=== PATIENT | female | born 1950 | race Caucasian/White ===

== ENCOUNTER 2017-02-07 17:12 | Emergency (ER) | payer MEDICARE, OTHER ==
[2017-02-07 18:25] LABS: ABSOLUTE EOSINOPHILS # (AUTO) 0.3 10^3/uL (0.0-0.6); ABSOLUTE LYMPHOCYTES (AUTO) 2.1 10^3/uL (0.5-4.7); ABSOLUTE MONOCYTES (AUTO) 0.7 10^3/uL (0.1-1.4); ABSOLUTE NEUT (AUTO) 5.4 10^3/uL (1.7-8.2); BASOPHILS % (AUTO) 0.6 % (0-2); EOSINOPHILS % (AUTO) 3.6 % (0-6); HEMATOCRIT 36.4 % (36.0-47.0); HEMOGLOBIN 12.3 g/dL (12.0-15.5); HGB HCT DIFFERENCE 0.5; LYMPHOCYTES % (AUTO) 24.1 % (13-45); MEAN CORPUSCULAR HEMOGLOBIN 31.6 pg (27.0-33.4); MEAN CORPUSCULAR HGB CONC 33.6 g/dL (32.0-36.0); MEAN CORPUSCULAR VOLUME 94 fl (80-97); RED BLOOD COUNT 3.88 10^6/uL (3.72-5.28); RED CELL DISTRIBUTION WIDTH 13.8 % (11.5-14.0); SEGMENTED NEUTROPHILS % (AUTO) 63.7 % (42-78); WHITE BLOOD COUNT 8.5 10^3/uL (4.0-10.5)
[2017-02-07 18:38] LABS: ALANINE AMINOTRANSFERASE 27 U/L (9-52); ALBUMIN 3.3 g/dL (3.5-5.0); ALKALINE PHOSPHATASE 81 U/L (38-126); ANION GAP 8 (5-19); ASPARTATE AMINO TRANSFERASE 20 U/L (14-36); BILIRUBIN,DIRECT 0.4 mg/dL (0.0-0.4); BILIRUBIN,TOTAL 0.5 mg/dL (0.2-1.3); BLOOD UREA NITROGEN 16 mg/dL (7-20); CARBON DIOXIDE 31 mmol/L (22-30); CHLORIDE 105 mmol/L (98-107); CREATININE RESULT 0.92 mg/dL (0.52-1.25); GLUCOSE 91 mg/dL (75-110); POTASSIUM 3.9 mmol/L (3.6-5.0); SODIUM 144.1 mmol/L (137-145)
--- NOTE | 2017-02-07 18:45 | ER Document Report ---
ED General - General Mode of Arrival: Medic Information source: Patient TRAVEL OUTSIDE OF THE [place] IN LAST 30 DAYS: No - HPI Onset: Yesterday - Refer to HPI notes Similar symptoms previously: Yes Recently seen / treated by doctor: Yes <SHASHANK BARLOW - Last Filed: 02/07/17 23:17> <BHAVESH WHITE - Last Filed: 02/08/17 03:40> - General Chief Complaint: Shortness Of Breath Stated Complaint: BREATHING CONCERNS,DIZZY,JAW PAIN Time Seen by Provider: 02/07/17 18:43 Notes: Patient is a 66-year-old female presenting to the emergency department from [facility]. Patient states that she was sent over for her "pacemaker not firing properly." Patient states that yesterday she is an area without air conditioning and she felt very faint and weak. Patient had a friend take her home and she remained in her chair for the rest of the night until she had another friend drive her to the doctor's office today. Patient states that she has some shortness of breath when walking to the car today. Patient's pacemaker is a Medtronic. Patient has history of six sinus syndrome. Patient H that she has been drinking Gatorade and water today. Patient states that she has also felt like she has been in a "haze" yesterday and today. Patient has a history of penicillin. (SHASHANK BARLOW) - Related Data Allergies/Adverse Reactions: Penicillins Allergy (Mild, Verified 08/01/15 15:18) rash Past Medical History - General Information source: Patient - Social History Smoking Status: Never Smoker Cigarette use (# per day): No Chew tobacco use (# tins/day): No Frequency of alcohol use: None Drug Abuse: None Family History: None - Past Medical History Cardiac Medical History: Reports: Hx Hypercholesterolemia, Hx Hypertension Pulmonary Medical History: Reports: Hx Asthma, Hx Bronchitis, Hx COPD, Hx Pneumonia Neurological Medical History: Reports: Hx Cerebrovascular Accident Musculoskeltal Medical History: Reports Hx Arthritis Psychiatric Medical History: Reports: Hx Bipolar Disorder Past Surgical History: Reports: Hx Abdominal Surgery - hernia repair, Hx Breast Surgery - cyst removed, Hx Cardiac Surgery - pacemaker(dual), Hx Pacemaker - Immunizations Hx Diphtheria, Pertussis, Tetanus Vaccination: Yes Hx Pneumococcal Vaccination: 06/23/08 <SHASHANK BARLOW - Last Filed: 02/07/17 23:17> Review of Systems - Review of Systems Constitutional: See HPI, Malaise, Weakness EENT: No symptoms reported Cardiovascular: See HPI Respiratory: See HPI, Short of breath Gastrointestinal: No symptoms reported Genitourinary: No symptoms reported Female Genitourinary: No symptoms reported Musculoskeletal: No symptoms reported Skin: No symptoms reported Hematologic/Lymphatic: No symptoms reported Neurological/Psychological: No symptoms reported -: Yes All other systems reviewed and negative <SHASHANK BARLOW - Last Filed: 02/07/17 23:17> Physical Exam - Vital signs Interpretation: Hypertensive - General General appearance: Appears well, Alert In distress: Mild - HEENT Head: Normocephalic, Atraumatic Eyes: Normal Pupils: PERRL Mucous membranes: Dry - Respiratory Respiratory status: No respiratory distress Chest status: Nontender Breath sounds: Normal Chest palpation: Normal - Cardiovascular Rhythm: Regular Heart sounds: Normal auscultation Murmur: No - Abdominal Inspection: Normal Distension: No distension Bowel sounds: Normal Tenderness: Nontender Organomegaly: No organomegaly - Back Back: Normal, Nontender - Extremities General upper extremity: Normal inspection, Normal ROM, Normal strength General lower extremity: Normal inspection, Normal ROM, Normal strength - Neurological Neuro grossly intact: Yes Cognition: Normal Orientation: AAOx4 Vinnie Coma Scale Eye Opening: Spontaneous [place]innie Coma Scale Verbal: Oriented [place] Coma Scale Motor: Obeys Commands [place] Coma Scale Total: 15 Speech: Normal - Psychological Associated symptoms: Normal affect, Normal mood - Skin Skin Temperature: Warm Skin Moisture: Dry <SHASHANK BARLOW - Last Filed: 02/07/17 23:17> <BHAVESH WHITE - Last Filed: 02/08/17 03:40> - Vital signs Vitals: Temp Resp BP Pulse Ox 97.5 F 19 151/90 H 91 L 02/07/17 17:51 02/07/17 17:51 02/07/17 17:51 02/07/17 17:51 Course - Laboratory Result Diagrams: 02/07/17 17:54 02/07/17 17:54 - Consults [employer] Time consulted: 22:15 <SHASHANK BARLOW - Last Filed: 02/07/17 23:17> - Laboratory Result Diagrams: 02/07/17 17:54 02/07/17 17:54 <BHAVESH WHITE - Last Filed: 02/08/17 03:40> - Re-evaluation Re-evalutation: 02/08/17 02:38 Patient is a 66-year-old female who comes in with concern that her pacemaker is not working. Patient does not have pacer spikes when she is above 60 bpm. The patient rate is set at 60 and her pacemaker. Pacemaker was interrogated and there has been no recent events. He had a short run of SVT on January 21. Patient was outside for a long time in the heat. States that she was quite hot yesterday. She feels better today. Patient has been given fluids. Troponin is negative 2. Patient appears well. She will be discharged home is to follow -up with her doctor. Again, there is no evidence for any dysfunction of her pacemaker. Stable for discharge. (BHAVESH WHITE) - Vital Signs Vital signs: Temp Pulse Resp BP Pulse Ox 97.5 F 14 161/111 H 96 02/07/17 17:51 02/07/17 22:08 02/07/17 20:51 02/07/17 22:08 - Laboratory Laboratory results interpreted by me: 02/07/17 17:54 Carbon Dioxide 31 H Total Protein 6.0 L Albumin 3.3 L - Consults [employer] Reason for consultation: 02/07/17 22:15 Patient's pacemaker was interrogated and discussed with [employer]. (SHASHANK BARLOW) Discharge <HSASHANK BARLOW - Last Filed: 02/07/17 23:17> <BHAVESH WHITE - Last Filed: 02/08/17 03:40> - Discharge Clinical Impression: Encounter for interrogation of cardiac pacemaker, Atypical chest pain Heat effects Qualifiers: Encounter type: initial encounter Qualified Code(s): T67.9XXA - Effect of heat and light, unspecified, initial encounter Condition: Stable Disposition: HOME, SELF-CARE Instructions: Chest Pain of Unclear Cause ([facility]), Heat Exhaustion ([facility]), Pacemaker Evaluation ([facility]) Additional Instructions: Please follow-up with your income tax preparer as scheduled. Your pacemaker interrogation did not show any abnormalities. Referrals: SANDEE HANCOCK FNP [Primary Care Provider] - Follow up tomorrow Scribe Attestation: 02/08/17 03:40 I personally performed the services described in the documentation, reviewed and edited the documentation which was dictated to the scribe in my presence, and it accurately records my words and actions. (BHAVESH WHITE) Scribe Documentation - Scribe Written by Scribe:: Janki Bravo 02/07/17 20:44 acting as scribe for :: Elidia <SHASHANK BARLOW - Last Filed: 02/07/17 23:17>
[2017-02-07 21:09] VITALS: BP 161/111
[2017-02-07 22:12] LABS: CREATINE KINASE MB 0.89 ng/mL (<4.55)
[2017-02-07 22:13] LABS: TROPONIN I < 0.012 ng/mL
[2017-02-07] MEDS ORDERED: NORMAL SALINE 1000 ML 500 ML IV ONE (22:25)
--- NOTE | 2017-02-08 07:13 | EKG REPORT ---
SEVERITY:- ABNORMAL ECG - ATRIAL-VENTRICULAR DUAL-PACED RHYTHM : Confirmed by: Crystal Cabrera MD 08-Feb-2017 07:13:07
== END 2017-02-08 07:12 | disposition home or self-care (01) ==
LOC: ER 17:12
DX: I49.5 Sick sinus syndrome (principal); R07.89 Other chest pain; Z95.0 Presence of cardiac pacemaker; T67.9XXA Effect of heat and light, unspecified, initial encounter; X30.XXXA Exposure to excessive natural heat, initial encounter; R53.1 Weakness; R42 Dizziness and giddiness; R06.02 Shortness of breath; I10 Essential (primary) hypertension; J44.9 Chronic obstructive pulmonary disease, unspecified; Z87.01 Personal history of pneumonia (recurrent); Z88.0 Allergy status to penicillin
CPT/HCPCS: 93005; 99285; 96361; 36415; 82553; 82550; 84443; 85025; 80053; 84484; 83880; 71010; 93010; J7030

== ENCOUNTER 2017-06-22 14:06 | Observation (INO) | payer MEDICARE, OTHER ==
[2017-06-22 15:31] LABS: ABSOLUTE EOSINOPHILS # (AUTO) 0.3 10^3/uL (0.0-0.6); ABSOLUTE LYMPHOCYTES (AUTO) 1.7 10^3/uL (0.5-4.7); ABSOLUTE MONOCYTES (AUTO) 0.7 10^3/uL (0.1-1.4); ABSOLUTE NEUT (AUTO) 6.4 10^3/uL (1.7-8.2); BASOPHILS % (AUTO) 0.4 % (0-2); EOSINOPHILS % (AUTO) 3.2 % (0-6); HEMATOCRIT 38.2 % (36.0-47.0); HEMOGLOBIN 12.9 g/dL (12.0-15.5); HGB HCT DIFFERENCE 0.5; LYMPHOCYTES % (AUTO) 18.9 % (13-45); MEAN CORPUSCULAR HEMOGLOBIN 31.4 pg (27.0-33.4); MEAN CORPUSCULAR HGB CONC 33.8 g/dL (32.0-36.0); MEAN CORPUSCULAR VOLUME 93 fl (80-97); MONOCYTES % (AUTO) 7.1 % (3-13); RED BLOOD COUNT 4.11 10^6/uL (3.72-5.28); RED CELL DISTRIBUTION WIDTH 13.9 % (11.5-14.0); SEGMENTED NEUTROPHILS % (AUTO) 70.4 % (42-78); WHITE BLOOD COUNT 9.1 10^3/uL (4.0-10.5)
[2017-06-22 15:36] LABS: ALANINE AMINOTRANSFERASE 30 U/L (9-52); ALBUMIN 3.5 g/dL (3.5-5.0); ALKALINE PHOSPHATASE 90 U/L (38-126); ANION GAP 7 (5-19); ASPARTATE AMINO TRANSFERASE 24 U/L (14-36); BILIRUBIN,DIRECT 0.4 mg/dL (0.0-0.4); BILIRUBIN,TOTAL 0.4 mg/dL (0.2-1.3); BLOOD UREA NITROGEN 11 mg/dL (7-20); CALCIUM 9.4 mg/dL (8.4-10.2); CARBON DIOXIDE 31 mmol/L (22-30); CHLORIDE 106 mmol/L (98-107); CREATINE KINASE 45 U/L (30-135); CREATININE RESULT 0.73 mg/dL (0.52-1.25); GLUCOSE 155 mg/dL (75-110); POTASSIUM 3.6 mmol/L (3.6-5.0); SODIUM 143.8 mmol/L (137-145); TOTAL PROTEIN 6.6 g/dL (6.3-8.2)
--- NOTE | 2017-06-22 15:39 | RADIOLOGY REPORT (SQ) ---
EXAM DESCRIPTION: CT HEAD WITHOUT COMPLETED DATE/TIME: 06/22/2017 3:27 pm REASON FOR STUDY: Slurred speech and left arm weakness COMPARISON: 08/01/2015 TECHNIQUE: Axial images acquired through the brain without intravenous contrast. Images reviewed wi th bone, brain and subdural windows. Images stored on PACS. All CT scanners at this facility use dose modulation, iterative reconstruction, and/or weight based d osing when appropriate to reduce radiation dose to as low as reasonably achievable (ALARA). [facility]: Dose Right [facility]: CareDose [facility]: Dose Right [facility]: Teradose 4D [facility]: [employer] RADIATION DOSE: Up-to-date CT equipment and radiation dose reduction techniques were employed. CTDIv ol: 64.6 mGy. DLP: 1163 mGy-cm. mGy. LIMITATIONS: None. FINDINGS: VENTRICLES: Prominent. CEREBRUM: No masses. No hemorrhage. No midline shift. Areas of low density in the white matter mos t likely due to chronic micro-vascular ischemic change. No evidence for acute infarction. CEREBELLUM: No masses. No hemorrhage. No alteration of density. No evidence for acute infarction. EXTRAAXIAL SPACES: Mild age-related involutional change. No fluid collections. No masses. ORBITS AND GLOBE: No intra- or extraconal masses. Normal contour of globe without masses. CALVARIUM: No fracture. PARANASAL SINUSES: No fluid or mucosal thickening. SOFT TISSUES: No mass or hematoma. OTHER: No other significant finding. IMPRESSION: MILD CHRONIC CHANGES OF ATROPHY AND MICROVASCULAR ISCHEMIA. NO ACUTE PROCESS. EVIDENCE OF ACUTE STROKE: NO. TECHNICAL DOCUMENTATION: JOB ID: [id number] Quality ID # [id number]: Final reports with documentation of one or more dose reduction techniques (e.g., Au tomated exposure control, adjustment of the mA and/or kV according to patient size, use of iterative reconstruction technique) 2010 [id number]- All Rights Reserved
[2017-06-22 15:48] LABS: CREATINE KINASE MB 1.31 ng/mL (<4.55); PARTIAL THROMBOPLASTIN TIME 30.7 SEC (23.5-35.8)
[2017-06-22 15:49] LABS: TROPONIN I < 0.012 ng/mL
[2017-06-22 15:51] LABS: PROTHROMBIN TIME 13.3 SEC (11.4-15.4)
--- NOTE | 2017-06-22 15:54 | RADIOLOGY REPORT (SQ) ---
EXAM DESCRIPTION: CHEST SINGLE VIEW COMPLETED DATE/TIME: 06/22/2017 3:31 pm REASON FOR STUDY: Slurred speech and left arm weakness COMPARISON: 02/07/2017 EXAM PARAMETERS: NUMBER OF VIEWS: One view. TECHNIQUE: Single frontal radiographic view of the chest acquired. RADIATION DOSE: NA LIMITATIONS: None. FINDINGS: LUNGS AND PLEURA: No opacities, masses or pneumothorax. No pleural effusion. MEDIASTINUM AND HILAR STRUCTURES: No masses. Contour normal. HEART AND VASCULAR STRUCTURES: Stable heart size. BONES: No acute findings. HARDWARE: None in the chest. OTHER: Stable position of pacemaker. IMPRESSION: NO ACUTE RADIOGRAPHIC FINDING IN THE CHEST. TECHNICAL DOCUMENTATION: JOB ID: [id number]
[2017-06-22 16:31] LABS: APPEARANCE,URINE CLEAR; BILIRUBIN,URINE NEGATIVE (NEGATIVE); GLUCOSE, URINE NEGATIVE (NEGATIVE); KETONES,URINE NEGATIVE (NEGATIVE); LEUKOCYTE ESTERASE,URINE NEGATIVE (NEGATIVE); NITRITE,URINE NEGATIVE (NEGATIVE); PROTEIN,URINE NEGATIVE (NEGATIVE); URINE SPECIFIC GRAVITY 1.003; UROBILINOGEN,URINE NEGATIVE mg/dL (<2.0)
--- NOTE | 2017-06-22 16:31 | EKG REPORT ---
SEVERITY:- ABNORMAL ECG - ATRIAL-VENTRICULAR DUAL-PACED RHYTHM : Confirmed by: Sada Baig 22-Jun-2017 16:31:04
--- NOTE | 2017-06-22 16:35 | ER Document Report ---
ED Dizziness/Weakness - General Chief Complaint: General Weakness Stated Complaint: GENERAL WEAKNESS Time Seen by Provider: 06/22/17 14:59 Notes: Patient brought in by EMS with a complaint of feeling weak and dizzy today. Patient lives alone. Went to the store earlier today and when she returned home , she lost control of her urine once while in her car in a second time when she got into her house. She thought she might have a UTI, although she has not had one in 6-8 months.. She wears a pessary for urinary incontinence. This all began about 930 this morning. She felt generalized weakness, but more on the left side and noted slurring of her speech. She was unable to walk. Normally she is able to ambulate around her house she with no assistance but uses a cane for support and ambulating when she goes out of her house. Patient denies any headache or head injury. Denies any loss of consciousness. Did not fall. TRAVEL OUTSIDE OF THE [place] IN LAST 30 DAYS: No - Related Data Allergies/Adverse Reactions: Penicillins Allergy (Mild, Verified 06/22/17 14:39) rash Past Medical History - Social History Smoking Status: Never Smoker Chew tobacco use (# tins/day): No Frequency of alcohol use: None Drug Abuse: None Family History: None, Reviewed & Not Pertinent Patient has suicidal ideation: No Patient has homicidal ideation: No - Past Medical History Cardiac Medical History: Reports: Hx Hypercholesterolemia, Hx Hypertension Pulmonary Medical History: Reports: Hx Asthma, Hx Bronchitis, Hx COPD, Hx Pneumonia Neurological Medical History: Reports: Hx Cerebrovascular Accident Musculoskeltal Medical History: Reports Hx Arthritis Psychiatric Medical History: Reports: Hx Bipolar Disorder Past Surgical History: Reports: Hx Abdominal Surgery - hernia repair, Hx Breast Surgery - cyst removed, Hx Cardiac Surgery - pacemaker(dual), Hx Pacemaker - Immunizations Hx Diphtheria, Pertussis, Tetanus Vaccination: Yes Hx Pneumococcal Vaccination: 06/23/08 Review of Systems - Review of Systems Notes: REVIEW OF SYSTEMS: CONSTITUTIONAL : Denies fever. See HPI regarding generalized weakness. EENT: Denies eye, ear, nose or mouth or throat pain or other symptoms. CARDIOVASCULAR: Denies chest pain. RESPIRATORY: Denies cough, chest congestion, or shortness of breath. GASTROINTESTINAL: Denies abdominal pain or nausea, vomiting, or diarrhea. GENITOURINARY: Patient has chronic urinary incontinence and has a pessary.. MUSCULOSKELETAL: Denies back or neck pain. Denies joint pain or swelling. SKIN: Denies rash or skin lesions. NEUROLOGICAL: Denies LOC or altered mental status. Denies headache. Currently complains of weakness of her left side. ALL OTHER SYSTEMS REVIEWED AND NEGATIVE. Physical Exam - Vital signs Vitals: Temp Pulse Resp BP Pulse Ox 97.3 F 79 16 176/89 H 95 06/22/17 14:13 06/22/17 14:13 06/22/17 14:13 06/22/17 14:13 06/22/17 14:13 Interpretation: Hypertensive - Minimal - Notes Notes: PHYSICAL EXAMINATION: GENERAL: Well-appearing, in no acute distress. Speech is difficult to understand and slurred. HEAD: Atraumatic, normocephalic. EYES: Pupils equal round and reactive to light, extraocular movements intact. ENT: oropharynx clear without exudates. Moist mucous membranes. NECK: Normal range of motion, supple. No carotid bruits heard. LUNGS: Breath sounds clear and equal bilaterally. HEART: Regular rate and rhythm without murmurs. ABDOMEN: Soft, nontender. No guarding or rebound. BACK: No tenderness throughout entire back. EXTREMITIES: Normal range of motion without pain. NEUROLOGICAL: Speech is slurred. Can move all 4 extremities, although weakly. Patient says she feels more weak on her left side. PSYCH: Normal mood, normal affect. SKIN: Warm, dry, no rashes. Course - Re-evaluation Re-evalutation: 06/22/17 16:56 Spoke with hospitalist on-call, Dr. Hernandez who will admit the patient - Vital Signs Vital signs: Temp Pulse Resp BP Pulse Ox 97.3 F 62 18 160/73 H 95 06/22/17 14:13 06/22/17 14:30 06/22/17 14:33 06/22/17 14:33 06/22/17 14:33 - Laboratory Result Diagrams: 06/22/17 14:30 06/22/17 14:30 Laboratory results interpreted by me: 06/22/17 14:30 Carbon Dioxide 31 H Glucose 155 H - Diagnostic Test Radiology reviewed: Image reviewed, Reports reviewed - CT of the head shows chronic ischemic changes, but no acute processes. Radiology results interpreted by me: 06/22/17 16:49 Chest x-ray shows no acute process. - EKG Interpretation by Me Rate: Normal - Paced rhythm at 64 P Waves: Other - EKG shows pacemaker rhythm When compared to previous EKG there are: Previous EKG unavailable Discharge - Discharge Clinical Impression: Stroke Condition: Fair Disposition: ADMITTED INPATIENT Admitting Provider: Hospitalist Unit Admitted: IMCU Referrals: SANDEE HANCOCK FNP [Primary Care Provider] - Follow up as needed
[2017-06-22] MEDS ORDERED: ACETAMINOPHEN 325 MG TABLET PO PRN (17:31)
[2017-06-22] MEDS ORDERED: ONDANSETRON HCL INJ/PF 4 MG/2 ML SDV IV PRN (17:31)
[2017-06-22] MEDS ORDERED: ONDANSETRON 4 MG TAB.RAPDIS PO PRN (17:31)
--- NOTE | 2017-06-22 17:48 | PDOC H&P ---
History of Present Illness Admission Date/PCP: 06/22/17 17:07 SIM WATKINS Patient complains of: slurred speech and weakness History of Present Illness: GILMAR MARKHAM is a 67 year old female who was in her normal state of health this morning when she woke up. Around 9 am, she began to have generalized weakness and slurred speech. She eventually came to the ER. Her weakness has comletely resolved, but still had some slurred speech that had improved quite a bit. The patient denies any sensory changes. She denied loss of consciousness , denies visual changes. Denies palpitations. She has a pacemaker because of sick sinus syndrome. She reprts that she does not take aspirin. Past Medical History Cardiac Medical History: Reports: Hyperlipidema, Hypertension Denies: Myocardial Infarction Pulmonary Medical History: Reports: Asthma, Bronchitis, Chronic Obstructive Pulmonary Disease (COPD), Pneumonia Denies: Tuberculosis Neurological Medical History: Reports: Ischemic CVA Denies: Seizures Endocrine Medical History: Reports: None Renal/ Medical History: Reports: None, Other - urinary incontinence Malignancy Medical History: Reports: Breast Cancer GI Medical History: Reports: None Musculoskeltal Medical History: Reports: Arthritis Skin Medical History: Reports: None Psychiatric Medical History: Reports: Bipolar Disorder Traumatic Medical History: Reports: None Hematology: Reports: None Infectious Medical History: Reports: None Past Surgical History Past Surgical History: Reports: Pacemaker Social History Smoking Status: Never Smoker Frequency of Alcohol Use: None Hx Recreational Drug Use: No Drugs: None Hx Prescription Drug Abuse: No - Advance Directive Resuscitation Status: Full Code Family History Family History: mother at 62 from breast cancer. Father's health history is unknown Parental Family History Reviewed: Yes Children Family History Reviewed: No Sibling(s) Family History Reviewed.: No Medication/Allergy Home Medications: Albuterol Sulfate [Ventolin HFA MDI 18 GM] 2 puff IH Q4H 11/20/12 Furosemide [Lasix 40 mg Tablet] 40 mg PO DAILY 11/20/12 Gabapentin [Neurontin 300 Mg Capsule] 600 mg PO QID 11/20/12 Hydroxyzine HCl 50 mg PO BID 11/20/12 Latanoprost [Xalatan 0.005% Oph Soln 2.5 Ml Bottle] 1 drop BTH_EYE QHS Multivitamin [Tab-A-Lakeshia (Multiple Vitamin) Tablet] 1 tab PO DAILY 11/20/12 Nitroglycerin [Nitrostat 0.4 mg (1/150 Gr) Tabs 25/Bottle] 0.4 mg SL Q5MP PRN Potassium Chloride [Klor-Con 10 Meq Tablet.sa] 20 meq PO BID 11/20/12 Risperidone [Risperdal 1 Mg Tablet] 2 mg PO BID 11/20/12 Hydrocodone/Acetaminophen [[place] 7.5-325 Tablet] 1 each PO Q6H PRN #20 tablet Sulfamethoxazole/Trimethoprim [Bactrim Ds Tablet] 1 each PO BID #6 tablet Carisoprodol [Soma 350 Mg Tablet] 350 mg PO QHS #10 tablet 08/01/15 Allergies/Adverse Reactions: Penicillins Allergy (Mild, Verified 06/22/17 14:39) rash Review of Systems Constitutional: ABSENT: chills, fever(s), headache(s), weight gain, weight loss Eyes: ABSENT: visual disturbances Ears: ABSENT: hearing changes Cardiovascular: ABSENT: chest pain, dyspnea on exertion, edema, orthropnea, palpitations Respiratory: ABSENT: cough, hemoptysis Gastrointestinal: ABSENT: abdominal pain, constipation, diarrhea, hematemesis, hematochezia, nausea, vomiting Genitourinary: PRESENT: other - incontinence Musculoskeletal: ABSENT: joint swelling Integumentary: ABSENT: rash, wounds Neurological: PRESENT: as per HPI, abnormal speech, weakness Psychiatric: ABSENT: anxiety, depression Endocrine: ABSENT: cold intolerance, heat intolerance, polydipsia, polyuria Hematologic/Lymphatic: ABSENT: easy bleeding, easy bruising Physical Exam Vital Signs: Temp Pulse Resp BP Pulse Ox 97.3 F 62 13 158/73 H 97 06/22/17 14:13 06/22/17 17:00 06/22/17 17:01 06/22/17 17:01 06/22/17 17:01 General appearance: PRESENT: no acute distress, morbidly obese Head exam: PRESENT: atraumatic, normocephalic Eye exam: PRESENT: conjunctiva pink, EOMI, PERRLA. ABSENT: scleral icterus Ear exam: PRESENT: normal external ear exam Mouth exam: PRESENT: moist, tongue midline Neck exam: ABSENT: carotid bruit, JVD, lymphadenopathy, thyromegaly Respiratory exam: PRESENT: clear to auscultation singh. ABSENT: rales, rhonchi, wheezes Cardiovascular exam: PRESENT: RRR. ABSENT: diastolic murmur, rubs, systolic murmur Pulses: PRESENT: normal dorsalis pedis pul Vascular exam: PRESENT: normal capillary refill GI/Abdominal exam: PRESENT: normal bowel sounds, soft. ABSENT: distended, guarding, mass, organolmegaly, rebound, tenderness Rectal exam: PRESENT: deferred Extremities exam: PRESENT: other - brace on right knee. ABSENT: calf tenderness , clubbing, pedal edema Neurological exam: PRESENT: alert, awake, oriented to person, oriented to place , oriented to time, oriented to situation. ABSENT: CN II-XII grossly intact - slightly slurred speech, motor sensory deficit Psychiatric exam: PRESENT: appropriate affect Skin exam: PRESENT: dry, intact, warm. ABSENT: cyanosis, rash Results Impressions: Chest X-Ray 06/22/17 15:14 IMPRESSION: NO ACUTE RADIOGRAPHIC FINDING IN THE CHEST. Head CT 06/22/17 15:14 IMPRESSION: MILD CHRONIC CHANGES OF ATROPHY AND MICROVASCULAR ISCHEMIA. NO ACUTE PROCESS. EVIDENCE OF ACUTE STROKE: NO. Assessment & Plan - Diagnosis (1) Stroke Is this a current diagnosis for this admission?: Yes Plan: She will be started on aspirin as she is aspirin naive. Her head CT did not show an acute event. She cannot get an MRI because of her pacemaker. Will check carotid dopplers. All of her symptoms have resolved except for the slurred speech. (2) HTN (hypertension) Is this a current diagnosis for this admission?: Yes (3) Hyperlipidemia Is this a current diagnosis for this admission?: Yes Plan: will start lipitor (4) COPD (chronic obstructive pulmonary disease) Is this a current diagnosis for this admission?: Yes (5) Urinary incontinence Is this a current diagnosis for this admission?: Yes (6) Bipolar 1 disorder Is this a current diagnosis for this admission?: Yes Plan: continue with risperdol (7) Breast cancer Is this a current diagnosis for this admission?: Yes Plan: has had a lumpectomy on right - Time Time Spent: 50 to 70 Minutes - Plan Summary Plan Summary: will admit as an observation.
--- NOTE | 2017-06-22 19:07 | RADIOLOGY REPORT (SQ) ---
EXAM DESCRIPTION: CAROTID DOPPLER COMPLETED DATE/TIME: 06/22/2017 6:55 pm REASON FOR STUDY: acute neurologic syndrome COMPARISON: None. TECHNIQUE: Grayscale ultrasound, Doppler velocity and spectra, and color Doppler images acquired of the extra-cranial carotid and vertebral arteries. Images stored on PACS. LIMITATIONS: None. FINDINGS: RIGHT CAROTID CCA Velocities: Within normal limits. ICA Velocities Peak systolic 61 m/s. End diastolic 1 a m/s. Proximal ICA/CCA peak systolic ratio 1.1. Spectra normal. No significant plaque. LEFT CAROTID CCA Velocities: Within normal limits. ICA Velocities Peak systolic 86 m/s. End diastolic 27 m/s. Proximal ICA/CCA peak systolic ratio 1.6. Spectra normal. No significant plaque. VERTEBRAL ARTERIES: Antegrade flow. Normal waveforms. SUBCLAVIAN ARTERIES: No finding. OTHER: No other significant finding. IMPRESSION: NO HEMODYNAMICALLY SIGNIFICANT STENOSIS. COMMENT: Quality ID #[id number]: Velocity criteria are extrapolated from the diameter data as defined by t he Society of Radiologists in Ultrasound Consensus Conference. Radiology 2003: 229; 340-346. TECHNICAL DOCUMENTATION: JOB ID: [id number]- All Rights Reserved
[2017-06-22] MEDS: RISPERIDONE 1 MG TABLET PO SCH (19:34)
[2017-06-22] MEDS: FAMOTIDINE 20 MG TABLET PO SCH (21:55)
[2017-06-22] MEDS ORDERED: ATORVASTATIN CALCIUM 40 MG TABLET PO SCH (22:00)
[2017-06-23 04:45] LABS: HEMATOCRIT 35.4 % (36.0-47.0); HGB HCT DIFFERENCE 0.6; MEAN CORPUSCULAR HEMOGLOBIN 31.7 pg (27.0-33.4); MEAN CORPUSCULAR VOLUME 93 fl (80-97); RED CELL DISTRIBUTION WIDTH 13.9 % (11.5-14.0); WHITE BLOOD COUNT 9.4 10^3/uL (4.0-10.5)
[2017-06-23 05:05] LABS: ANION GAP 6 (5-19); BLOOD UREA NITROGEN 16 mg/dL (7-20); CARBON DIOXIDE 32 mmol/L (22-30); CHLORIDE 105 mmol/L (98-107); CREATININE RESULT 0.79 mg/dL (0.52-1.25); GLUCOSE 86 mg/dL (75-110); SODIUM 143.2 mmol/L (137-145)
[2017-06-23] MEDS ORDERED: (PENDING PHARMACY ID) (Alendronate Sodium [Fosamax] 70 MG) PO PRN (06:57)
[2017-06-23 09:09] VITALS: BP 150/82
[2017-06-23] MEDS: FAMOTIDINE 20 MG TABLET PO SCH (09:27)
[2017-06-23] MEDS: RISPERIDONE 1 MG TABLET PO SCH (09:27)
[2017-06-23] MEDS ORDERED: AMLODIPINE BESYLATE 10 MG TABLET PO SCH (10:00)
[2017-06-23] MEDS ORDERED: ASPIRIN 81 MG TABLET, CHEWABLE PO SCH (10:00)
[2017-06-23] MEDS ORDERED: CITALOPRAM HYDROBROMIDE 20 MG TABLET PO SCH (10:00)
[2017-06-23] MEDS ORDERED: ALBUTEROL SULFATE HFA (90 MCG/PUFF) 8 GM MDI (1 MDI/ER DISP) IH SCH (10:00)
[2017-06-23] MEDS ORDERED: ANASTROZOLE 1 MG TABLET PO SCH (10:00)
[2017-06-23] MEDS ORDERED: ENOXAPARIN SODIUM INJ 40 MG/0.4 ML DISP.SYRIN SUBCUT SCH (10:00)
[2017-06-23] MEDS ORDERED: CLOPIDOGREL BISULFATE 75 MG TABLET PO SCH (10:00)
[2017-06-23] MEDS ORDERED: ALBUTEROL SULFATE HFA (90 MCG/PUFF) 200 PUFF/8.5 GM MDI IH SCH (10:00)
[2017-06-23] MEDS ORDERED: GABAPENTIN 300 MG CAPSULE PO SCH (10:00)
[2017-06-23] MEDS ORDERED: LEVOTHYROXINE SODIUM 0.075 MG TABLET PO SCH (10:00)
--- NOTE | 2017-06-23 10:03 | PDOC DISCHARGE SUMMARY ---
General - Admit/Disc Date/PCP Admission Date/Primary Care Provider: 06/22/17 17:07 SIM WATKINS Discharge Date: 06/23/17 - Discharge Diagnosis (1) Stroke Is this a current diagnosis for this admission?: Yes Summary: Patient had a TIA as she has had complete resolution of her symptoms. (2) HTN (hypertension) Is this a current diagnosis for this admission?: Yes (3) Hyperlipidemia Is this a current diagnosis for this admission?: Yes (4) COPD (chronic obstructive pulmonary disease) Is this a current diagnosis for this admission?: Yes (5) Urinary incontinence Is this a current diagnosis for this admission?: Yes (6) Bipolar 1 disorder Is this a current diagnosis for this admission?: Yes (7) Breast cancer Is this a current diagnosis for this admission?: Yes - Additional Information Resuscitation Status: Full Code Discharge Diet: Cardiac Discharge Activity: Activity As Tolerated Home Medications: Gabapentin [Neurontin 300 mg Capsule] 300 mg PO QID 11/20/12 Risperidone [Risperdal 1 mg Tablet] 2 mg PO BID 11/20/12 Albuterol Sulfate [Proventil Hfa] 2 puff IH QID 06/22/17 Alendronate Sodium [Fosamax] 70 mg PO ASDIR PRN 06/22/17 Amlodipine Besylate 10 mg PO DAILY 06/22/17 Anastrozole 1 mg PO DAILY 06/22/17 Atorvastatin Calcium 40 mg PO QHS 06/22/17 Citalopram Hydrobromide [Citalopram HBr] 10 mg PO DAILY 06/22/17 Clopidogrel Bisulfate [Clopidogrel] 75 mg PO DAILY 06/22/17 Hydroxyzine Pamoate 100 mg PO QHS 06/22/17 Levothyroxine Sodium [Synthroid 0.075 mg Tablet] 0.075 mg PO DAILY 06/22/17 Aspirin [Aspirin 81 mg Chewable Tablet] 81 mg PO DAILY tab.chew 06/23/17 History of Present Illness History of Present Illness: GILMAR MARKHAM is a 67 year old female who was in her normal state of health this morning when she woke up. Around 9 am, she began to have generalized weakness and slurred speech. She eventually came to the ER. Her weakness has comletely resolved, but still had some slurred speech that had improved quite a bit. The patient denies any sensory changes. She denied loss of consciousness , denies visual changes. Denies palpitations. She has a pacemaker because of sick sinus syndrome. She reprts that she does not take aspirin. Hospital Course Hospital Course: 67-year-old female who presented with left-sided weakness and slurred speech. The patient had a head CT that showed no acute event. Patient was monitored on telemetry and had no cardiac arrhythmias. Carotid Dopplers were done and showed no significant stenosis. The patient did not have an MRI done because she has a pacemaker present. An echocardiogram was not done as she has not had any cardiac arrhythmias. The patient had been on Plavix and she will continue with the Plavix and add on aspirin daily. Patient's other medical problems all were stable while hospitalized. The patient will follow up with her primary care doctor in 2 weeks. Physical Exam Vital Signs: Temp Pulse Resp BP Pulse Ox 98.2 F 57 L 15 150/82 H 96 06/23/17 09:05 06/23/17 09:05 06/23/17 09:05 06/23/17 09:05 06/23/17 09:05 Intake & Output 06/22/17 06/23/17 06/24/17 06:59 06:59 06:59 Intake Total 1500 Output Total 1650 Balance -150 Weight 116.4 kg General appearance: PRESENT: no acute distress Eye exam: PRESENT: conjunctiva pink. ABSENT: scleral icterus Mouth exam: PRESENT: moist, tongue midline Neck exam: ABSENT: JVD Respiratory exam: PRESENT: clear to auscultation singh. ABSENT: rales, rhonchi, wheezes Cardiovascular exam: PRESENT: RRR. ABSENT: diastolic murmur, rubs, systolic murmur GI/Abdominal exam: PRESENT: normal bowel sounds, soft. ABSENT: distended, guarding, mass, organolmegaly, rebound, tenderness Extremities exam: ABSENT: calf tenderness, clubbing, pedal edema Neurological exam: PRESENT: alert, awake, oriented to person, oriented to place , oriented to time, oriented to situation, CN II-XII grossly intact. ABSENT: motor sensory deficit Psychiatric exam: PRESENT: appropriate affect Skin exam: PRESENT: dry, intact, warm. ABSENT: cyanosis, rash Results Laboratory Results: 06/23/17 04:06 06/23/17 04:06 10/01/17 10/01/17 04:06 04:06 WBC 9.4 RBC 3.80 Hgb 12.0 Hct 35.4 L MCV 93 MCH 31.7 MCHC 34.0 RDW 13.9 Plt Count 190 Sodium 143.2 Potassium 4.0 Chloride 105 Carbon Dioxide 32 H Anion Gap 6 BUN 16 Creatinine 0.79 Est GFR ( Amer) > 60 Est GFR (Non-Af Amer) > 60 Glucose 86 Calcium 9.0 Impressions: Chest X-Ray 06/22/17 15:14 IMPRESSION: NO ACUTE RADIOGRAPHIC FINDING IN THE CHEST. Head CT 06/22/17 15:14 IMPRESSION: MILD CHRONIC CHANGES OF ATROPHY AND MICROVASCULAR ISCHEMIA. NO ACUTE PROCESS. EVIDENCE OF ACUTE STROKE: NO. Carotid Doppler Study 06/22/17 17:36 IMPRESSION: NO HEMODYNAMICALLY SIGNIFICANT STENOSIS. Qualifiers PATEINT BEING DISCHARGED WITH ANY OF THE FOLLOWING DIAGNOSIS?: Stroke Stroke Pt being discharged on Anti-thrombolytic therapy?: Yes Stroke Pt being discharged on Anti-coagulation therapy?: No Reason(s) for not prescribing Anti-coagulation therapy:: Not indicated Stroke Pt being discharged on Statins?: Yes Plan Discharge Plan: Patient is discharged home in stable condition. Will follow up with her primary care physician in 2 weeks. Time Spent: Less than 30 Minutes
[2017-06-23] MEDS ORDERED: HYDROXYZINE PAMOATE 50 MG CAPSULE PO SCH (22:00)
== END 2017-06-23 10:05 | disposition home or self-care (01) ==
LOC: ER 14:06 → EH 17:07 → INTOOBSV 17:07 → 3W 18:24
PROVIDERS: ADMIT Family Medicine; ATTEND Family Medicine
DX: G45.9 Transient cerebral ischemic attack, unspecified (principal); R47.81 Slurred speech; I10 Essential (primary) hypertension; E78.5 Hyperlipidemia, unspecified; J44.9 Chronic obstructive pulmonary disease, unspecified; R32 Unspecified urinary incontinence; F31.9 Bipolar disorder, unspecified; C50.919 Malignant neoplasm of unspecified site of unspecified female breast; Z79.899 Other long term (current) drug therapy; Z79.82 Long term (current) use of aspirin; Z95.0 Presence of cardiac pacemaker; Z79.02 Long term (current) use of antithrombotics/antiplatelets; Z98.890 Other specified postprocedural states; Z60.2 Problems related to living alone; Z86.73 Personal history of transient ischemic attack (TIA), and cerebral infarction without residual deficits
CPT/HCPCS: 93005; 99285; 36415 ×2; 82553; 82550; 85025; 85027; 85610; 85730; 80048; 80053; 81001; 84484; 93880; 71010; 70450; 93010; G0378 ×3; A9270 ×3; J3490 ×3

== ENCOUNTER 2017-09-17 12:11 | Inpatient (IN) | payer MEDICARE, OTHER ==
--- NOTE | 2017-09-17 12:54 | ER Document Report ---
ED General - General Chief Complaint: Blood Pressure Problem Stated Complaint: WEAKNESS/BLOOD PRESSURE ISSUES Time Seen by Provider: 09/17/17 12:48 Notes: Patient says that she has been experiencing some jerking sensations for the last week. Says that both legs seems to draw and cause her pain and difficulty walking. She said that for the past 4 days she has been feeling very weak and thirsty. Says she has been drinking some liquids and eating. Also says that she has been disoriented for a few days. She does take her blood pressure occasionally at home and last week it was slightly low, but lot more so this morning. Denies any urinary symptoms. Think she may have had fever yesterday, but not today. Lives alone. Found by a girlfriend today who called EMS to bring her to the emergency department. Patient says that she has never had this happen before. Denies any vomiting or diarrhea. Denies any UTI symptoms. Had some abdominal pain in the mid abdomen a few days ago, but not currently. Has a history of COPD although she has never smoked. PMH: Cholecystectomy, breast cancer surgery with chemotherapy. TIA. Hypertension. Pacemaker. Anxiety and depression. TRAVEL OUTSIDE OF THE [place] IN LAST 30 DAYS: No - Related Data Allergies/Adverse Reactions: Penicillins Allergy (Mild, Verified 06/22/17 14:39) rash Past Medical History - Social History Smoking Status: Never Smoker Family History: None, Reviewed & Not Pertinent - Past Medical History Cardiac Medical History: Reports: Hx Hypercholesterolemia, Hx Hypertension, Other - Pacemaker Pulmonary Medical History: Reports: Hx Bronchitis, Hx COPD, Hx Pneumonia Neurological Medical History: Reports: Hx Cerebrovascular Accident Malignancy Medical History: Reports: Hx Breast Cancer Musculoskeltal Medical History: Reports Hx Arthritis Psychiatric Medical History: Reports: Hx Bipolar Disorder, Hx Depression Denies: Hx Schizophrenia Past Surgical History: Reports: Hx Abdominal Surgery - hernia repair, Hx Breast Surgery - cyst removed, Hx Cardiac Surgery - pacemaker(dual), Hx Cholecystectomy , Hx Pacemaker - Immunizations Hx Diphtheria, Pertussis, Tetanus Vaccination: Yes Hx Pneumococcal Vaccination: 06/23/08 Review of Systems - Review of Systems Notes: REVIEW OF SYSTEMS: CONSTITUTIONAL : Denies fever today, may have had fever yesterday. Feeling generalized weakness. EENT: Denies eye, ear, nose or mouth or throat pain or other symptoms. CARDIOVASCULAR: Denies chest pain. RESPIRATORY: Denies cough, chest congestion, or shortness of breath. GASTROINTESTINAL: Denies abdominal pain or nausea, vomiting, or diarrhea. GENITOURINARY: Denies difficulty or painful urinating, urinary frequency, blood in urine. MUSCULOSKELETAL: Denies back or neck pain. Denies joint pain or swelling. SKIN: Denies rash or skin lesions. NEUROLOGICAL: Denies LOC or altered mental status. Denies headache. Denies sensory loss or motor deficits. ALL OTHER SYSTEMS REVIEWED AND NEGATIVE. Physical Exam - Vital signs Vitals: Resp 22 H 09/17/17 12:23 Interpretation: Hypotensive - Notes Notes: PHYSICAL EXAMINATION: GENERAL: Well-appearing, in no acute distress. Blood pressure by EMS was 66/32 and then after a saline bolus she was 85/48. Answers questions appropriately. Follows commands appropriately. HEAD: Atraumatic, normocephalic. EYES: Pupils equal round and reactive to light, extraocular movements intact. ENT: oropharynx clear without exudates. Moist mucous membranes. NECK: Normal range of motion, supple. LUNGS: Breath sounds clear and equal bilaterally. HEART: Regular rate and rhythm without murmurs. ABDOMEN: Soft, nontender. No guarding or rebound. BACK: No tenderness throughout entire back. EXTREMITIES: Normal range of motion without pain. NEUROLOGICAL: Normal speech, normal gait. Normal sensory, motor, and reflex exams. Awake, alert, and oriented x3. Cranial nerves normal. PSYCH: Normal mood, normal affect. SKIN: Warm, dry, no rashes. Course - Re-evaluation Re-evalutation: 09/17/17 18:29 Patient's urine looks like the source of the patient's infection. Urine has been cultured and the patient has been given a gram of Rocephin IV. Patient has been given some IV fluids and her blood pressure is been maintained in the 120 systolic area throughout her stay thus far. Spoke with hospitalist on for the night and asked if we would get a CT scan stone survey to exclude a stone. Following that, patient will be admitted for observation to telemetry. - Vital Signs Vital signs: Temp Pulse Resp BP Pulse Ox 23 H 147/60 H 77 L 09/17/17 18:33 09/17/17 18:33 09/17/17 18:33 - Laboratory Result Diagrams: 09/17/17 13:44 09/17/17 13:44 Laboratory results interpreted by me: 09/17/17 09/17/17 09/17/17 13:44 13:44 16:45 WBC 15.4 H Hgb 11.8 L Hct 35.6 L Seg Neutrophils % 79.7 H Lymphocytes % 8.1 L Absolute Neutrophils 12.3 H Absolute Monocytes 1.8 H Creatinine 1.63 H Est GFR ( Amer) 38 L Est GFR (Non-Af Amer) 31 L Glucose 118 H AST 148 H ALT 70 H Total Protein 6.1 L Albumin 3.3 L Urine Protein 30 H Urine Blood MODERATE H Ur Leukocyte Esterase LARGE H Discharge - Discharge Clinical Impression: UTI (urinary tract infection), Hypotension Condition: Stable Disposition: ADMITTED OBSERVATION Admitting Provider: Hospitalist Unit Admitted: Telemetry
[2017-09-17 13:54] LABS: ABSOLUTE BASOPHILS # (AUTO) 0.1 10^3/uL (0.0-0.2); ABSOLUTE LYMPHOCYTES (AUTO) 1.3 10^3/uL (0.5-4.7); ABSOLUTE MONOCYTES (AUTO) 1.8 10^3/uL (0.1-1.4); ABSOLUTE NEUT (AUTO) 12.3 10^3/uL (1.7-8.2); BASOPHILS % (AUTO) 0.4 % (0-2); EOSINOPHILS % (AUTO) 0.1 % (0-6); HEMATOCRIT 35.6 % (36.0-47.0); HEMOGLOBIN 11.8 g/dL (12.0-15.5); LYMPHOCYTES % (AUTO) 8.1 % (13-45); MEAN CORPUSCULAR HEMOGLOBIN 30.9 pg (27.0-33.4); MEAN CORPUSCULAR VOLUME 94 fl (80-97); MONOCYTES % (AUTO) 11.7 % (3-13); PLATELET COUNT 200 10^3/uL (150-450); RED BLOOD COUNT 3.81 10^6/uL (3.72-5.28); RED CELL DISTRIBUTION WIDTH 13.7 % (11.5-14.0); SEGMENTED NEUTROPHILS % (AUTO) 79.7 % (42-78); TOTAL CELLS COUNTED % (AUTO) 100 %; WHITE BLOOD COUNT 15.4 10^3/uL (4.0-10.5)
[2017-09-17 14:12] LABS: ALANINE AMINOTRANSFERASE 70 U/L (9-52); ALBUMIN 3.3 g/dL (3.5-5.0); ALKALINE PHOSPHATASE 78 U/L (38-126); ANION GAP 9 (5-19); ASPARTATE AMINO TRANSFERASE 148 U/L (14-36); BILIRUBIN,DIRECT 0.3 mg/dL (0.0-0.4); BILIRUBIN,TOTAL 0.8 mg/dL (0.2-1.3); BLOOD UREA NITROGEN 20 mg/dL (7-20); CALCIUM 9.1 mg/dL (8.4-10.2); CARBON DIOXIDE 28 mmol/L (22-30); CHLORIDE 103 mmol/L (98-107); GLUCOSE 118 mg/dL (75-110); POTASSIUM 4.2 mmol/L (3.6-5.0); SODIUM 140.4 mmol/L (137-145); TOTAL PROTEIN 6.1 g/dL (6.3-8.2)
--- NOTE | 2017-09-17 14:20 | RADIOLOGY REPORT (SQ) ---
CORRECTED REPORT EXAM DESCRIPTION: CHEST SINGLE VIEW COMPLETED DATE/TIME: 09/17/2017 1:39 pm REASON FOR STUDY: Low blood pressure COMPARISON: 06/22/2017. EXAM PARAMETERS: NUMBER OF VIEWS: One view. TECHNIQUE: Single frontal radiographic view of the chest acquired. RADIATION DOSE: NA LIMITATIONS: None. FINDINGS: LUNGS AND PLEURA: No opacities, masses or pneumothorax. No pleural effusion. MEDIASTINUM AND HILAR STRUCTURES: No masses. Contour normal. HEART AND VASCULAR STRUCTURES: Heart normal in size. Normal vasculature. BONES: No acute findings. HARDWARE: Pacemaker. OTHER: No other significant finding. IMPRESSION: NO ACUTE RADIOGRAPHIC FINDING IN THE CHEST. TECHNICAL DOCUMENTATION: JOB ID: [id number] [facility]- All Rights Reserved <Electronicallly signed by KEILY CHANG MD in [place]> 09/17/17 1421 [facility]
[2017-09-17] MEDS ORDERED: CEFTRIAXONE 1 GM/D5W RTU 1 GM/50 ML RTUPB IV ONE (16:55)
[2017-09-17] MEDS ORDERED: NORMAL SALINE 1000 ML 1,000 ML IV ONE (17:00)
[2017-09-17 17:06] LABS: APPEARANCE,URINE CLOUDY; BILIRUBIN,URINE NEGATIVE (NEGATIVE); COLOR,URINE YELLOW; GLUCOSE, URINE NEGATIVE (NEGATIVE); KETONES,URINE NEGATIVE (NEGATIVE); LEUKOCYTE ESTERASE,URINE LARGE (NEGATIVE); NITRITE,URINE NEGATIVE (NEGATIVE); PROTEIN,URINE 30 mg/dL (NEGATIVE); URINE SPECIFIC GRAVITY 1.004; UROBILINOGEN,URINE NEGATIVE mg/dL (<2.0)
--- NOTE | 2017-09-17 18:31 | RADIOLOGY REPORT (SQ) ---
EXAM DESCRIPTION: CT LTD RENAL STONE PROTOCOL ON COMPLETED DATE/TIME: 09/17/2017 6:14 pm REASON FOR STUDY: UTI COMPARISON: None. TECHNIQUE: CT scan of the abdomen and pelvis performed without intravenous or oral contrast. Images reviewed with lung, soft tissue, and bone windows. Reconstructed coronal and sagittal MPR images revi ewed. All images stored on PACS. All CT scanners at this facility use dose modulation, iterative reconstruction, and/or weight based d osing when appropriate to reduce radiation dose to as low as reasonably achievable (ALARA). [facility]: Dose Right [facility]: CareDose [facility]: Dose Right [facility]: Teradose 4D [facility]: [employer] RADIATION DOSE: mGy. LIMITATIONS: None. FINDINGS: LOWER CHEST: A tiny right pleural effusion is identified. There is some minimal bibasilar densities layering posteriorly most consistent with atelectatic changes. NON-CONTRASTED LIVER, SPLEEN, ADRENALS: Evaluation limited by lack of IV contrast. No identified sign ificant masses. PANCREAS: No masses. No peripancreatic inflammatory changes. GALLBLADDER: Status post cholecystectomy RIGHT KIDNEY AND URETER: No suspicious masses. Assessment limited by lack of IV contrast. No signif icant calcifications. No hydronephrosis or hydroureter. LEFT KIDNEY AND URETER: No suspicious masses. Assessment limited by lack of IV contrast. No signifi cant calcifications. No hydronephrosis or hydroureter. There is asymmetric perinephric soft tissue stranding on the left which is a nonspecific finding but can be seen with an infectious process invo lving the kidney. Clinical correlation is recommended. AORTA AND RETROPERITONEUM: No aneurysm. No retroperitoneal masses or adenopathy. BOWEL AND PERITONEAL CAVITY: No obvious masses or inflammatory changes. No free fluid. APPENDIX: Not identified PELVIS, BLADDER, AND ABDOMINAL WALL:No abnormal masses. No free fluid. Urine distended bladder is id entified. BONES: No significant findings. OTHER: No other significant finding. IMPRESSION: Urine distended bladder is identified. There is asymmetric perinephric soft tissue stra nding on the left which is a nonspecific finding but can be seen with an infectious process involving the kidney. Clinical correlation is recommended. Other findings as noted above COMMENT: Quality ID # [id number]: Final reports with documentation of one or more dose reduction techniques (e.g., Automated exposure control, adjustment of the mA and/or kV according to patient size, use of iterative reconstruction technique) TECHNICAL DOCUMENTATION: JOB ID: [id number] [facility] [employer] [facility] [employer]- All Rights Reserved
[2017-09-17] MEDS ORDERED: NORMAL SALINE 1000 ML 2,000 ML IV ONE (19:43)
[2017-09-17] MEDS ORDERED: ONDANSETRON HCL INJ/PF 4 MG/2 ML SDV IV PRN (20:04)
[2017-09-17] MEDS ORDERED: IPRATROPIUM/ALBUTEROL 0.5-2.5 MG/3 ML AMPUL NEB PRN (20:04)
[2017-09-17] MEDS ORDERED: PHARMACY COMMUNICATION ORDER MC NR (20:15)
--- NOTE | 2017-09-17 20:32 | EKG REPORT ---
SEVERITY:- ABNORMAL ECG - SINUS RHYTHM FIRST DEGREE AV BLOCK LEFT ANTERIOR FASCICULAR BLOCK PROBABLE LEFT VENTRICULAR HYPERTROPHY : Confirmed by: Crystal Cabrera MD 17-Sep-2017 20:32:09
--- NOTE | 2017-09-17 20:36 | PDOC H&P ---
History of Present Illness Admission Date/PCP: 09/17/17 18:45 Kassy Edouard nurse practitioner History of Present Illness: GILMAR MARKHAM is a 67 year old female with past medical history of TIA, hypertension, hyperlipidemia, sick sinus syndrome status post pacemaker, bipolar 1, COPD, and breast cancer status post chemotherapy and lumpectomy who presents with generalized jerking sensation and elbow inability to walk. On Saturday patient reports she started feeling weak and tired. She reports subjective fevers and chills. She denies any nausea or vomiting. She reports some slight shortness of breath as well as back and midepigastric abdominal pain. Patient reports she has been feeling very disoriented. She reports that her blood pressure over the last week has been slightly low but significantly lower this morning. Patient was found by a friend and sent via EMS. Patient was found of a systolic in the 60s by EMS and was given 1 L of normal saline which brought her blood pressure up to the low 100s. Patient has received additional liter bolus in the emergency department bringing her systolic up to the 120s. She is referred to the hospitalist service for sepsis secondary to UTI. Patient's medications are currently undergoing reconciliation. Current list is automatically generated by [employer] and does not reflect an accurate description of her medications. Due to the urgent/emergent nature of her condition, she is admitted without a full list. Past Medical History Cardiac Medical History: Reports: Hyperlipidema, Hypertension, Other - Pacemaker Denies: Congestive Heart Failure, Myocardial Infarction Pulmonary Medical History: Reports: Bronchitis, Chronic Obstructive Pulmonary Disease (COPD), Pneumonia Denies: Asthma, Tuberculosis Neurological Medical History: Denies: Seizures Renal/ Medical History: Denies: End Stage Renal Disease Malignancy Medical History: Reports: Breast Cancer GI Medical History: Denies: Gastroesophageal Reflux Disease Musculoskeltal Medical History: Reports: Arthritis Psychiatric Medical History: Reports: Bipolar Disorder, Depression Hematology: Denies: Anemia, Bleeding Tendencies Past Surgical History Past Surgical History: Reports: Cholecystectomy, Herniorrhaphy, Pacemaker Social History Smoking Status: Never Smoker Frequency of Alcohol Use: None Hx Recreational Drug Use: No Drugs: None Hx Prescription Drug Abuse: No - Advance Directive Resuscitation Status: Full Code Surrogate healthcare decision maker:: Denis Hernandez, friend Family History Family History: None, Malignancy Parental Family History Reviewed: Yes Children Family History Reviewed: Yes Sibling(s) Family History Reviewed.: Yes Medication/Allergy Allergies/Adverse Reactions: Penicillins Allergy (Mild, Verified 06/22/17 14:39) rash Review of Systems Constitutional: PRESENT: chills, fatigue, fever(s), weakness. ABSENT: headache( s), weight gain, weight loss Eyes: ABSENT: visual disturbances Ears: ABSENT: hearing changes Cardiovascular: ABSENT: chest pain, dyspnea on exertion, edema, orthropnea, palpitations Respiratory: PRESENT: dyspnea. ABSENT: cough, hemoptysis, sputum Gastrointestinal: PRESENT: constipation. ABSENT: abdominal pain, diarrhea, hematemesis, hematochezia, melena, nausea, vomiting Genitourinary: ABSENT: dysuria, hematuria Musculoskeletal: ABSENT: joint swelling Integumentary: ABSENT: rash, wounds Neurological: PRESENT: weakness. ABSENT: abnormal gait, abnormal speech, confusion, dizziness, focal weakness, syncope Psychiatric: ABSENT: anxiety, depression, homidical ideation, suicidal ideation Endocrine: ABSENT: cold intolerance, heat intolerance, polydipsia, polyuria Hematologic/Lymphatic: ABSENT: easy bleeding, easy bruising Physical Exam Vital Signs: Temp Pulse Resp BP Pulse Ox 22 H 134/67 H 98 09/17/17 20:02 09/17/17 20:02 09/17/17 20:02 General appearance: PRESENT: mild distress - Ill-appearing, morbidly obese, well -developed, well-nourished Head exam: PRESENT: atraumatic, normocephalic Eye exam: PRESENT: conjunctiva pink, EOMI, PERRLA. ABSENT: scleral icterus Ear exam: PRESENT: normal external ear exam Mouth exam: PRESENT: dry mucosa, tongue midline Neck exam: ABSENT: JVD, lymphadenopathy, thyromegaly, tracheal deviation Respiratory exam: PRESENT: clear to auscultation singh, symmetrical, unlabored. ABSENT: accessory muscle use, rales, rhonchi, tachypnea, wheezes Cardiovascular exam: PRESENT: RRR, +S1, +S2. ABSENT: diastolic murmur, rubs, systolic murmur Pulses: PRESENT: normal dorsalis pedis pul Vascular exam: PRESENT: normal capillary refill GI/Abdominal exam: PRESENT: hypoactive bowel sounds, soft. ABSENT: distended, firm, guarding, mass, Granados's sign, organolmegaly, rebound, rigid, tenderness Rectal exam: PRESENT: deferred Extremities exam: ABSENT: calf tenderness, clubbing, pedal edema Neurological exam: PRESENT: alert, awake, oriented to person, oriented to place , oriented to time, oriented to situation, CN II-XII grossly intact. ABSENT: motor sensory deficit Psychiatric exam: PRESENT: flat affect, normal mood. ABSENT: homicidal ideation , suicidal ideation Skin exam: PRESENT: dry, intact, warm. ABSENT: cyanosis, rash Results Laboratory Results: 09/17/17 09/17/17 09/17/17 13:44 13:44 13:44 WBC 15.4 H Hgb 11.8 L Hct 35.6 L Plt Count 200 Seg Neutrophils % 79.7 H Sodium 140.4 Potassium 4.2 Chloride 103 Carbon Dioxide 28 Anion Gap 9 BUN 20 Creatinine 1.63 H Glucose 118 H Lactic Acid 0.9 Calcium 9.1 Total Bilirubin 0.8 Direct Bilirubin 0.3 AST 148 H ALT 70 H Alkaline Phosphatase 78 Total Protein 6.1 L Albumin 3.3 L TSH Ur Specific [place] Urine Protein Urine Blood Ur Leukocyte Esterase Urine WBC (Auto) Urine RBC (Auto) Urine Bacteria (Auto) Urine WBC Clumps Squamous Epi Cells Auto Urine Mucus (Auto) Urine Ascorbic Acid 09/17/17 09/17/17 09/17/17 16:45 20:00 20:00 WBC Hgb Hct Plt Count Seg Neutrophils % Sodium Potassium Chloride Carbon Dioxide Anion Gap BUN Creatinine Glucose Lactic Acid 0.9 Calcium Total Bilirubin Direct Bilirubin AST ALT Alkaline Phosphatase Total Protein Albumin TSH Pending Ur Specific [place] 1.004 Urine Protein 30 H Urine Blood MODERATE H Ur Leukocyte Esterase LARGE H Urine WBC (Auto) >182 Urine RBC (Auto) 27 Urine Bacteria (Auto) 3+ Urine WBC Clumps MANY Squamous Epi Cells Auto 3 Urine Mucus (Auto) RARE Urine Ascorbic Acid NEGATIVE Impressions: Chest X-Ray 09/17/17 12:56 IMPRESSION: NO ACUTE RADIOGRAPHIC FINDING IN THE CHEST. Limited or Localized CT 09/17/17 17:56 IMPRESSION: Urine distended bladder is identified. There is asymmetric perinephric soft tissue stranding on the left which is a nonspecific finding but can be seen with an infectious process involving the kidney. Clinical correlation is recommended. Other findings as noted above Assessment & Plan - Diagnosis (1) Sepsis Qualifiers: Sepsis type: sepsis due to unspecified organism Qualified Code(s): A41.9 - Sepsis, unspecified organism Is this a current diagnosis for this admission?: Yes Plan: Maintain map greater than 65 Secondary to urinary tract infection Selected Entries 09/17/17 12:23 Respiratory 22 H Rate 09/17/17 13:44 WBC 15.4 H (2) Pyelonephritis Is this a current diagnosis for this admission?: Yes Plan: Patient has evidence of perinephric stranding on CT. In light of this and her urine study as well as septic presentation, consider this pyelonephritis. Initiate patient on Rocephin and IV fluids. Pending culture, both blood and urine. (3) Acute renal failure Is this a current diagnosis for this admission?: Yes Plan: Likely secondary to pyelonephritis and sepsis as well as dehydration. Concern for underlying ATN. 02/15/15 02/07/17 06/22/17 17:43 17:54 14:30 Creatinine 0.93 0.92 0.73 06/23/17 09/17/17 04:06 13:44 Creatinine 0.79 1.63 H (4) UTI (urinary tract infection) Qualifiers: Urinary tract infection type: acute cystitis Hematuria presence: with hematuria Qualified Code(s): N30.01 - Acute cystitis with hematuria Is this a current diagnosis for this admission?: Yes Plan: Place patient on Rocephin (5) Anemia Qualifiers: Anemia type: unspecified type Qualified Code(s): D64.9 - Anemia, unspecified Is this a current diagnosis for this admission?: Yes Plan: Recommend outpatient workup for her anemia (6) Hypotension Is this a current diagnosis for this admission?: Yes Plan: Likely secondary to poor p.o. intake in light of acute illness and continuing to take her antihypertensives. Will hold her antihypertensives at this time and give gentle hydration. (7) Bipolar 1 disorder Is this a current diagnosis for this admission?: Yes (8) Breast cancer Qualifiers: Breast location: unspecified site of breast Estrogen receptor status: unspecified Patient sex: female Laterality: unspecified laterality Qualified Code(s): C50.919 - Malignant neoplasm of unspecified site of unspecified female breast Is this a current diagnosis for this admission?: No (9) COPD (chronic obstructive pulmonary disease) Qualifiers: Emphysema type: unspecified Is this a current diagnosis for this admission?: Yes Plan: PRN nebulized treatments and daily Spiriva (10) HTN (hypertension) Qualifiers: Hypertension type: unspecified Qualified Code(s): I10 - Essential (primary ) hypertension Is this a current diagnosis for this admission?: Yes Plan: Hold antihypertensives in light of her hypotension (11) Hyperlipidemia Qualifiers: Hyperlipidemia type: unspecified Qualified Code(s): E78.5 - Hyperlipidemia , unspecified Is this a current diagnosis for this admission?: Yes (12) Urinary incontinence Is this a current diagnosis for this admission?: Yes (13) Morbid obesity with BMI of 45.0-49.9, adult Is this a current diagnosis for this admission?: Yes - Time Time Spent: 30 to 50 Minutes Medications reviewed and adjusted accordingly: Yes Anticipated discharge: Home Within: Other - Upon improvement of symptomatology and culture results - Inpatient Certification Based on my medical assessment, after consideration of the patient's comorbidities, presenting symptoms, or acuity I expect that the services needed warrant INPATIENT care.: Yes I certify that my determination is in accordance with my understanding of Medicare's requirements for reasonable and necessary INPATIENT services [42 CFR 412.3e].: Yes Medical Necessity: Need For IV Fluids, Need for IV Antibiotics Post Hospital Care: D/C Shoe [facility]aster Documentation
[2017-09-17] MEDS: NORMAL SALINE 1000 ML 1,000 ML IV PRN (20:58)
[2017-09-17] MEDS: HEPARIN SOD (PORCINE) 5,000 UNIT/ML 1 ML SYRINGE SUBCUT SCH (21:26)
[2017-09-17] MEDS: ACETAMINOPHEN 325 MG TABLET PO PRN (23:24)
[2017-09-18] MEDS: HEPARIN SOD (PORCINE) 5,000 UNIT/ML 1 ML SYRINGE SUBCUT SCH ×3 (05:16→22:18)
[2017-09-18] MEDS ORDERED: ALBUTEROL SULFATE HFA (90 MCG/PUFF) 200 PUFF/8.5 GM MDI IH PRN (06:22)
[2017-09-18 06:25] LABS: ABSOLUTE LYMPHOCYTES (AUTO) 1.2 10^3/uL (0.5-4.7); ABSOLUTE MONOCYTES (AUTO) 1.4 10^3/uL (0.1-1.4); ABSOLUTE NEUT (AUTO) 10.4 10^3/uL (1.7-8.2); BASOPHILS % (AUTO) 0.4 % (0-2); EOSINOPHILS % (AUTO) 0.1 % (0-6); HEMATOCRIT 33.3 % (36.0-47.0); HEMOGLOBIN 11.1 g/dL (12.0-15.5); LYMPHOCYTES % (AUTO) 9.1 % (13-45); MEAN CORPUSCULAR HEMOGLOBIN 31.1 pg (27.0-33.4); MEAN CORPUSCULAR HGB CONC 33.4 g/dL (32.0-36.0); MEAN CORPUSCULAR VOLUME 93 fl (80-97); MONOCYTES % (AUTO) 10.4 % (3-13); PLATELET COUNT 185 10^3/uL (150-450); RED BLOOD COUNT 3.58 10^6/uL (3.72-5.28); RED CELL DISTRIBUTION WIDTH 13.8 % (11.5-14.0); TOTAL CELLS COUNTED % (AUTO) 100 %
[2017-09-18 06:50] LABS: ANION GAP 9 (5-19); BLOOD UREA NITROGEN 18 mg/dL (7-20); CALCIUM 8.2 mg/dL (8.4-10.2); CARBON DIOXIDE 25 mmol/L (22-30); CHLORIDE 109 mmol/L (98-107); GLUCOSE 118 mg/dL (75-110); MAGNESIUM 1.8 mg/dL (1.6-2.3); POTASSIUM 4.2 mmol/L (3.6-5.0); SODIUM 142.8 mmol/L (137-145)
[2017-09-18] MEDS ORDERED: LEVOTHYROXINE SODIUM 0.075 MG TABLET PO ONE (07:00)
--- NOTE | 2017-09-18 07:08 | PROGRESS NOTE E ---
Progress Note NAME: GILMAR MARKHAM : 1950 AGE: 67Y DATE: 09/18/2017 ROOM: 428 SUBJECTIVE: The patient is currently lying in bed. She is awake, alert. She states that she does feel better than when she came in. She denies any nausea, vomiting, diarrhea. The patient does have an appetite and is asking for breakfast. The patient does not voice any concerns at this time. The patient has been febrile overnight and blood pressures have been in acceptable range. REVIEW OF SYSTEMS: Rest of review of systems negative. MEDICATIONS: Medications have been reviewed. OBJECTIVE: GENERAL: The patient is a 67-year-old female who is awake, alert. She is oriented to person, place, time, and situation. She is verbal, conversational, does not appear to be in any acute distress. VITAL SIGNS: Temperature is 98.5, pulse 72, respirations 21, blood pressure is 107/54, oxygen saturation is 95% on 2 L nasal cannula. SKIN: Warm and dry. No rash. Not diaphoretic. HEENT: Pupils equal, round, and reactive to light and accommodation. Conjunctivae pink. No JVP. CARDIOVASCULAR SYSTEM: Heart is regular. There is no murmur or rub. CHEST: Clear, symmetrical, unlabored. ABDOMEN: Soft, nontender, nondistended. BACK: No CVA tenderness or sacral edema. EXTREMITIES: No clubbing, cyanosis, edema. PSYCHIATRIC: A little odd affect, but pleasant. DIAGNOSTICS: Lab values are as follows: Hematology obtained on 09/18/2017 is pending. Hematology obtained on 09/17/2017: WBCs are 15.4, hemoglobin is 11.8, hematocrit is 35.6, platelet count is 200,000. Chemistry obtained on 09/18/2017 is pending. Chemistry obtained on 09/17/2017: TSH is 1.76. Sodium is 140, potassium 4.2, chloride is 103, carbon dioxide 28, BUN 20, creatinine is 1.63, glucose 118, lactic acid is 0.9. IMPRESSION AND PLAN: 1. ACUTE PYELONEPHRITIS. Will continue Rocephin and p.r.n. antipyretics and follow. 2. GRAM-NEGATIVE HARRY BACTEREMIA, MOST LIKELY SECONDARY TO NUMBER 1. Will continue Rocephin for now and await for culture and sensitivities. 3. SEPSIS SECONDARY TO NUMBER 1. Given the patient's leukocytosis, febrile state, and need for volume resuscitation, the patient overall appears much improved. Will follow. 4. ACUTE KIDNEY INJURY. The patient's repeat creatinine is improved, but will continue to hydrate and follow. 5. TRANSAMINITIS. Upon review of the patient's previous labs, this is a slight elevation. Will repeat this a.m. and follow. 6. ANEMIA. This could be worked up on an outpatient basis. 7. BIPOLAR DISORDER TYPE 1. Will continue home medication. 8. CHRONIC OBSTRUCTIVE PULMONARY DISEASE. Will continue p.r.n. inhalers. 9. HYPERTENSION. Currently holding the patient's antihypertensives. 10. HYPERLIPIDEMIA. Will continue statin. 11. MORBID OBESITY WITH A BMI GREATER THAN 45 TO 49.5. Encourage weight reduction. 12. BREAST CANCER. DISPOSITION: The patient is a FULL CODE. Pending patient's symptomatology and diagnostic findings, will re-evaluate in the a.m. Time spent on this followup including assessment, plan, physical examination, patient education, review of records is 35 minutes. DICTATING PHYSICIAN: PAOLA LOO NP [id number] PHY#: [id number] ID: [id number] JOB#: [id number] ACCT: [id number] cc: >
[2017-09-18] MEDS: GABAPENTIN 300 MG CAPSULE PO SCH ×2 (07:22→22:18)
[2017-09-18] MEDS: CITALOPRAM HYDROBROMIDE 20 MG TABLET PO SCH (09:21)
[2017-09-18] MEDS: ANASTROZOLE 1 MG TABLET PO SCH (09:21)
[2017-09-18] MEDS: CLOPIDOGREL BISULFATE 75 MG TABLET PO SCH (09:21)
[2017-09-18] MEDS: ASPIRIN 81 MG TABLET, ENT COATED PO SCH (09:21)
[2017-09-18] MEDS: NORMAL SALINE 1000 ML 1,000 ML IV PRN (09:22)
[2017-09-18] MEDS: METOPROLOL SUCCINATE 25 MG TAB.SR.24H PO SCH (09:22)
[2017-09-18] MEDS: RISPERIDONE 1 MG TABLET PO SCH (09:22)
[2017-09-18] MEDS: DOCUSATE SODIUM 100 MG CAPSULE PO SCH ×2 (09:22→17:17)
[2017-09-18] MEDS: CEFTRIAXONE 2 GM/D5W RTU 2 GM/50 ML RTUPB IV SCH (10:05)
[2017-09-18] MEDS: ATORVASTATIN CALCIUM 40 MG TABLET PO SCH (22:18)
[2017-09-18] MEDS: HYDROXYZINE PAMOATE 50 MG CAPSULE PO SCH (22:18)
[2017-09-19] MEDS: NORMAL SALINE 1000 ML 1,000 ML IV PRN (00:38)
[2017-09-19] MEDS: HEPARIN SOD (PORCINE) 5,000 UNIT/ML 1 ML SYRINGE SUBCUT SCH ×3 (05:48→22:57)
[2017-09-19] MEDS: LEVOTHYROXINE SODIUM 0.075 MG TABLET PO SCH (05:48)
[2017-09-19] MEDS: GABAPENTIN 300 MG CAPSULE PO SCH ×2 (09:19→22:57)
[2017-09-19] MEDS: DOCUSATE SODIUM 100 MG CAPSULE PO SCH ×2 (09:19→18:48)
[2017-09-19] MEDS: CITALOPRAM HYDROBROMIDE 20 MG TABLET PO SCH (09:19)
[2017-09-19] MEDS: CLOPIDOGREL BISULFATE 75 MG TABLET PO SCH (09:19)
[2017-09-19] MEDS: ASPIRIN 81 MG TABLET, ENT COATED PO SCH (09:20)
[2017-09-19] MEDS: METOPROLOL SUCCINATE 25 MG TAB.SR.24H PO SCH (09:20)
[2017-09-19] MEDS: CEFTRIAXONE 2 GM/D5W RTU 2 GM/50 ML RTUPB IV SCH (09:20)
[2017-09-19] MEDS: ANASTROZOLE 1 MG TABLET PO SCH (09:20)
[2017-09-19] MEDS: RISPERIDONE 1 MG TABLET PO SCH (09:24)
--- NOTE | 2017-09-19 09:58 | PROGRESS NOTE E ---
Progress Note NAME: GILMAR MARKHAM : 1950 AGE: 67Y DATE: 09/19/2017 ROOM: 428 SUBJECTIVE: The patient is currently lying in bed. The patient states that she is quite nervous, stating that she does not like to be in the hospital. The patient also states that she is angry because she asked for a toothbrush 2 hours ago and has not gotten it yet. The patient states that this is the reason that she feels this place is "incompetent." The patient has had no reported episodes of vomiting nor diarrhea. The patient has been afebrile for 24 hours. No shortness of breath, dizziness, chest pain, and the patient does not voice any other concerns at this time. REVIEW OF SYSTEMS: Rest of the review of systems is negative. MEDICATIONS: Medications have been reviewed. OBJECTIVE: GENERAL: The patient is a 67-year-old female who is awake, alert. She is oriented to person, place, time. She does not appear to be distressed. VITAL SIGNS: Are as follows: Temperature is 98.2, pulse 75, respirations 16, blood pressure 136/71, oxygen saturation is 91% on room air. SKIN: Warm and dry. No rash. She is not diaphoretic. HEENT: Pupils equal, round, reactive to light and accommodation. Conjunctivae pink. No JVP. CARDIOVASCULAR SYSTEM: Heart is regular. There is no murmur or rub. CHEST: Clear, symmetrical, unlabored. ABDOMEN: Soft, nontender, and nondistended. BACK: No CVA tenderness, sacral edema. EXTREMITIES: No clubbing, cyanosis, or edema. PSYCHIATRIC: The patient is bizarre and odd. DIAGNOSTICS: Lab values are as follows: Hematology obtained on 09/18/2017: WBCs are 13.0, hemoglobin is 11.1, hematocrit is 33.3, platelet count is 185,000. Chemistry obtained on 09/18/2017: Sodium is 142, potassium 4.2, chloride is 109, carbon dioxide 25, BUN 18, creatinine is 1.65, glucose 118, calcium is 8.2, magnesium is 1.8. Blood cultures obtained on 09/17/2017, revealed gram-negative rods. Urine culture obtained on 09/17/2017, revealed a pansensitive E. coli. IMPRESSION AND PLAN: 1. ACUTE E. COLI PYELONEPHRITIS. Will continue Rocephin. The patient overall appears to be improving. 2. GRAM-NEGATIVE HARRY BACTEREMIA, MOST LIKELY SECONDARY TO #1. Will continue Rocephin and repeat the patient's blood cultures. The patient has been afebrile for 24 hours. If her next set of cultures is negative after 72 hours, she can be transitioned over to oral antibiotics for discharge. 3. SEPSIS SECONDARY TO NUMBERS 1 AND 2. Given the patient's leukocytosis, febrile state, need for volume resuscitation, overall this appears much improved. 4. ACUTE KIDNEY INJURY. The patient's creatinine is back to baseline. 5. TRANSAMINITIS. I will repeat the patient's LFTs in the a.m. and follow. 6. ANEMIA. Can be worked up on an outpatient basis. 7. BIPOLAR DISORDER TYPE 1. Continue home medication. 8. CHRONIC OBSTRUCTIVE PULMONARY DISEASE. Will continue the patient's p.r.n. inhalers. 9. HYPERTENSION. Will hold the patient's antihypertensives. 10. HYPERLIPIDEMIA. Will continue statin. 11. HISTORY OF BREAST CANCER. 12. MORBID OBESITY WITH A BMI OF 45 TO 49.5. Will encourage weight reduction. DISPOSITION: The patient is a FULL CODE. Pending patient's symptomatology and diagnostic findings, will reevaluate in the a.m. for discharge. Time spent on this followup including assessment, plan, physical examination, patient education, review of records is 35 minutes. DICTATING PHYSICIAN: PAOLA LOO NP [id number] PHY#: [id number] ID: [id number] JOB#: [id number] ACCT: [id number] cc: > [facility]
[2017-09-19] MEDS: ATORVASTATIN CALCIUM 40 MG TABLET PO SCH (22:57)
[2017-09-19] MEDS: HYDROXYZINE PAMOATE 50 MG CAPSULE PO SCH (22:57)
[2017-09-20] MEDS ORDERED: LISINOPRIL 10 MG TABLET PO ONE (00:15)
[2017-09-20 05:32] LABS: ABSOLUTE BASOPHILS # (AUTO) 0.1 10^3/uL (0.0-0.2); ABSOLUTE EOSINOPHILS # (AUTO) 0.3 10^3/uL (0.0-0.6); ABSOLUTE LYMPHOCYTES (AUTO) 1.4 10^3/uL (0.5-4.7); ABSOLUTE MONOCYTES (AUTO) 0.9 10^3/uL (0.1-1.4); ABSOLUTE NEUT (AUTO) 8.5 10^3/uL (1.7-8.2); BASOPHILS % (AUTO) 0.6 % (0-2); EOSINOPHILS % (AUTO) 2.8 % (0-6); HEMATOCRIT 31.6 % (36.0-47.0); HEMOGLOBIN 10.3 g/dL (12.0-15.5); LYMPHOCYTES % (AUTO) 12.3 % (13-45); MEAN CORPUSCULAR HGB CONC 32.6 g/dL (32.0-36.0); MEAN CORPUSCULAR VOLUME 95 fl (80-97); MONOCYTES % (AUTO) 7.8 % (3-13); PLATELET COUNT 218 10^3/uL (150-450); RED BLOOD COUNT 3.33 10^6/uL (3.72-5.28); SEGMENTED NEUTROPHILS % (AUTO) 76.5 % (42-78); TOTAL CELLS COUNTED % (AUTO) 100 %; WHITE BLOOD COUNT 11.1 10^3/uL (4.0-10.5)
[2017-09-20 06:00] LABS: ALANINE AMINOTRANSFERASE 106 U/L (9-52); ALBUMIN 2.6 g/dL (3.5-5.0); ALKALINE PHOSPHATASE 91 U/L (38-126); ANION GAP 7 (5-19); ASPARTATE AMINO TRANSFERASE 123 U/L (14-36); BILIRUBIN,DIRECT 0.3 mg/dL (0.0-0.4); BILIRUBIN,TOTAL 0.5 mg/dL (0.2-1.3); BLOOD UREA NITROGEN 10 mg/dL (7-20); CARBON DIOXIDE 26 mmol/L (22-30); CHLORIDE 116 mmol/L (98-107); GLUCOSE 90 mg/dL (75-110); MAGNESIUM 1.9 mg/dL (1.6-2.3); POTASSIUM 4.5 mmol/L (3.6-5.0); SODIUM 149.4 mmol/L (137-145); TOTAL PROTEIN 5.3 g/dL (6.3-8.2)
[2017-09-20] MEDS: HEPARIN SOD (PORCINE) 5,000 UNIT/ML 1 ML SYRINGE SUBCUT SCH ×3 (06:12→21:58)
[2017-09-20] MEDS: LEVOTHYROXINE SODIUM 0.075 MG TABLET PO SCH (06:12)
[2017-09-20] MEDS: CEFTRIAXONE 2 GM/D5W RTU 2 GM/50 ML RTUPB IV SCH (09:46)
[2017-09-20] MEDS: ANASTROZOLE 1 MG TABLET PO SCH (09:46)
[2017-09-20] MEDS: DOCUSATE SODIUM 100 MG CAPSULE PO SCH ×2 (09:46→17:39)
[2017-09-20] MEDS: LISINOPRIL 10 MG TABLET PO SCH (09:47)
[2017-09-20] MEDS: METOPROLOL SUCCINATE 25 MG TAB.SR.24H PO SCH (09:47)
[2017-09-20] MEDS: ASPIRIN 81 MG TABLET, ENT COATED PO SCH (09:47)
[2017-09-20] MEDS: CITALOPRAM HYDROBROMIDE 20 MG TABLET PO SCH (09:48)
[2017-09-20] MEDS: CLOPIDOGREL BISULFATE 75 MG TABLET PO SCH (09:48)
[2017-09-20] MEDS: GABAPENTIN 300 MG CAPSULE PO SCH ×2 (09:49→21:58)
--- NOTE | 2017-09-20 12:27 | PDOC PROGRESS REPORT ---
Subjective Progress Note for:: 09/20/17 Subjective:: 67-year-old female past medical history of chronic urinary tract infections. Patient was admitted with confusion, low blood pressure, elevated heart rate, sepsis secondary to urinary tract infection. Urine and blood cultures both positive for E. coli gram-positive rods. Currently on Rocephin which is susceptible. Patient and friend states she is doing much better today less confusion. Afebrile up out of bed to bedside commode. Has a better appetite. Denies any more complaints of back pain seen in bed alert and oriented 3. Blood pressures little more elevated today and she seems to have more edema to her lower extremities. Slight dyspnea at rest Reason For Visit: SEPSIS, PYELONEPHRITIS Physical Exam Vital Signs: Temp Pulse Resp BP Pulse Ox 98.7 F 64 16 183/85 H 94 09/20/17 08:08 09/20/17 08:08 09/20/17 08:08 09/20/17 08:08 09/20/17 10:33 Intake & Output 09/19/17 09/20/17 09/21/17 06:59 06:59 06:59 Intake Total 4479 3517 Output Total 3750 2600 Balance 729 917 Weight 127.1 kg 126.7 kg General appearance: PRESENT: no acute distress, well-developed, well-nourished Head exam: PRESENT: atraumatic, normocephalic Eye exam: PRESENT: conjunctiva pink, EOMI, PERRLA. ABSENT: scleral icterus Ear exam: PRESENT: normal external ear exam Mouth exam: PRESENT: moist, tongue midline Neck exam: ABSENT: carotid bruit, JVD, lymphadenopathy, thyromegaly Respiratory exam: PRESENT: clear to auscultation singh, crackles. ABSENT: rales, rhonchi, wheezes Cardiovascular exam: PRESENT: RRR. ABSENT: diastolic murmur, rubs, systolic murmur Pulses: PRESENT: normal dorsalis pedis pul Vascular exam: PRESENT: normal capillary refill GI/Abdominal exam: PRESENT: normal bowel sounds, soft. ABSENT: distended, guarding, mass, organolmegaly, rebound, tenderness Rectal exam: PRESENT: deferred Extremities exam: PRESENT: full ROM, +2 edema. ABSENT: calf tenderness, clubbing, pedal edema Musculoskeletal exam: PRESENT: ambulatory Neurological exam: PRESENT: alert, awake, oriented to person, oriented to place , oriented to time, oriented to situation, CN II-XII grossly intact. ABSENT: motor sensory deficit Psychiatric exam: PRESENT: appropriate affect, normal mood. ABSENT: homicidal ideation, suicidal ideation Skin exam: PRESENT: dry, intact, warm. ABSENT: cyanosis, rash Results Laboratory Results: 09/20/17 04:30 09/20/17 04:30 09/20/17 09/20/17 04:30 04:30 WBC 11.1 H RBC 3.33 L Hgb 10.3 L Hct 31.6 L MCV 95 MCH 31.0 MCHC 32.6 RDW 14.0 Plt Count 218 Seg Neutrophils % 76.5 Lymphocytes % 12.3 L Monocytes % 7.8 Eosinophils % 2.8 Basophils % 0.6 Absolute Neutrophils 8.5 H Absolute Lymphocytes 1.4 Absolute Monocytes 0.9 Absolute Eosinophils 0.3 Absolute Basophils 0.1 Sodium 149.4 H Potassium 4.5 Chloride 116 H Carbon Dioxide 26 Anion Gap 7 BUN 10 Creatinine 0.87 Est GFR ( Amer) > 60 Est GFR (Non-Af Amer) > 60 Glucose 90 Calcium 9.0 Magnesium 1.9 Total Bilirubin 0.5 AST 123 H ALT 106 H Alkaline Phosphatase 91 Total Protein 5.3 L Albumin 2.6 L Impressions: Chest X-Ray 09/17/17 12:56 IMPRESSION: NO ACUTE RADIOGRAPHIC FINDING IN THE CHEST. Limited or Localized CT 09/17/17 17:56 IMPRESSION: Urine distended bladder is identified. There is asymmetric perinephric soft tissue stranding on the left which is a nonspecific finding but can be seen with an infectious process involving the kidney. Clinical correlation is recommended. Other findings as noted above Assessment & Plan - Diagnosis (1) UTI (urinary tract infection) Qualifiers: Urinary tract infection type: acute cystitis Hematuria presence: with hematuria Qualified Code(s): N30.01 - Acute cystitis with hematuria Is this a current diagnosis for this admission?: Yes Plan: Continue IV Rocephin suspect another 3 days IV. She is susceptible to Cipro plan to discharge her home on oral Cipro. (2) Morbid obesity with BMI of 45.0-49.9, adult Is this a current diagnosis for this admission?: Yes Plan: Encourage slow steady weight loss. Continue daily weights suspect some of her gain is from fluid gain. Encourage lifestyle modifications and decrease sodium intake increase activity (3) Sepsis Qualifiers: Sepsis type: sepsis due to unspecified organism Qualified Code(s): A41.9 - Sepsis, unspecified organism Is this a current diagnosis for this admission?: Yes Plan: Continue IV antibiotics suspect another 3 days. Consider discharge home on antibiotics after 2 more days of IV antibiotics. If patient is oriented and showing signs of improvement (4) HTN (hypertension) Qualifiers: Hypertension type: essential hypertension Qualified Code(s): I10 - Essential (primary) hypertension Is this a current diagnosis for this admission?: Yes Plan: Will DC IV fluids for now. Give patient some IV Lasix for diuresing was taking it as needed at home for weight gain of greater than 3 pounds in 1 day continue monitor her blood pressure. Plan to attempt weaning off her O2. Encourage patient get up out of bed ambulating home. Continue daily weights. Patient had almost 10kg weight gain since admission. Continue monitor daily weights. Will give some IV Lasix for now.
[2017-09-20] MEDS ORDERED: FUROSEMIDE INJ/PF 20 MG/2 ML SDV IV ONE (13:45)
[2017-09-20] MEDS ORDERED: RISPERIDONE 1 MG TABLET PO ONE (18:00)
[2017-09-20] MEDS: HYDROXYZINE PAMOATE 50 MG CAPSULE PO SCH (21:58)
[2017-09-20] MEDS: RISPERIDONE 1 MG TABLET PO SCH (21:58)
[2017-09-20] MEDS: ATORVASTATIN CALCIUM 40 MG TABLET PO SCH (21:58)
[2017-09-20] MEDS: ACETAMINOPHEN 325 MG TABLET PO PRN (23:50)
[2017-09-21] MEDS: LEVOTHYROXINE SODIUM 0.075 MG TABLET PO SCH (05:47)
[2017-09-21] MEDS: HEPARIN SOD (PORCINE) 5,000 UNIT/ML 1 ML SYRINGE SUBCUT SCH ×3 (05:47→22:09)
[2017-09-21] MEDS: DOCUSATE SODIUM 100 MG CAPSULE PO SCH ×2 (09:12→17:20)
[2017-09-21] MEDS: RISPERIDONE 1 MG TABLET PO SCH ×2 (09:12→22:08)
[2017-09-21] MEDS: ASPIRIN 81 MG TABLET, ENT COATED PO SCH (09:12)
[2017-09-21] MEDS: GABAPENTIN 300 MG CAPSULE PO SCH ×2 (09:12→22:08)
[2017-09-21] MEDS: LISINOPRIL 10 MG TABLET PO SCH (09:13)
[2017-09-21] MEDS: CLOPIDOGREL BISULFATE 75 MG TABLET PO SCH (09:13)
[2017-09-21] MEDS: METOPROLOL SUCCINATE 25 MG TAB.SR.24H PO SCH (09:13)
[2017-09-21] MEDS: ANASTROZOLE 1 MG TABLET PO SCH (09:14)
[2017-09-21] MEDS: CITALOPRAM HYDROBROMIDE 20 MG TABLET PO SCH (09:14)
[2017-09-21] MEDS: CEFTRIAXONE 2 GM/D5W RTU 2 GM/50 ML RTUPB IV SCH (09:14)
[2017-09-21] MEDS: ACETAMINOPHEN 325 MG TABLET PO PRN ×2 (13:47→22:07)
--- NOTE | 2017-09-21 15:54 | PDOC PROGRESS REPORT ---
Subjective Progress Note for:: 09/21/17 Subjective:: 67-year-old female past medical history of chronic urinary tract infections. Patient was admitted with confusion, low blood pressure, elevated heart rate, sepsis secondary to urinary tract infection. Urine and blood cultures both positive for E. coli gram-positive rods. Currently on Rocephin which is susceptible. Patient and friend states she is doing much better today less confusion. Afebrile up out of bed to bedside commode. Has a better appetite. Denies any more complaints of back pain seen in bed alert and oriented 3. Blood pressures little more elevated today and she seems to have more edema to her lower extremities. Slight dyspnea at rest Reason For Visit: SEPSIS, PYELONEPHRITIS Physical Exam Vital Signs: Temp Pulse Resp BP Pulse Ox 97.6 F 63 19 164/91 H 100 09/21/17 11:25 09/21/17 11:25 09/21/17 11:25 09/21/17 11:25 09/21/17 11:25 Intake & Output 09/20/17 09/21/17 09/22/17 06:59 06:59 06:59 Intake Total 3517 3403 Output Total 2600 2800 Balance 917 603 Weight 126.7 kg 124.7 kg General appearance: PRESENT: no acute distress, morbidly obese, well-developed, well-nourished Head exam: PRESENT: atraumatic, normocephalic Eye exam: PRESENT: conjunctiva pink, EOMI, PERRLA. ABSENT: scleral icterus Ear exam: PRESENT: normal external ear exam Mouth exam: PRESENT: moist, tongue midline Neck exam: ABSENT: carotid bruit, JVD, lymphadenopathy, thyromegaly Respiratory exam: PRESENT: clear to auscultation singh. ABSENT: rales, rhonchi, wheezes Cardiovascular exam: PRESENT: RRR. ABSENT: diastolic murmur, rubs, systolic murmur Pulses: PRESENT: normal dorsalis pedis pul Vascular exam: PRESENT: normal capillary refill GI/Abdominal exam: PRESENT: normal bowel sounds, soft. ABSENT: distended, guarding, mass, organolmegaly, rebound, tenderness Rectal exam: PRESENT: deferred Extremities exam: PRESENT: full ROM, +1 edema, +2 edema. ABSENT: calf tenderness, clubbing, pedal edema Neurological exam: PRESENT: alert, awake, oriented to person, oriented to place , oriented to time, oriented to situation, CN II-XII grossly intact. ABSENT: motor sensory deficit Psychiatric exam: PRESENT: appropriate affect, normal mood. ABSENT: homicidal ideation, suicidal ideation Skin exam: PRESENT: dry, intact, warm. ABSENT: cyanosis, rash Results Laboratory Results: 09/20/17 04:30 09/20/17 04:30 Impressions: Chest X-Ray 09/17/17 12:56 IMPRESSION: NO ACUTE RADIOGRAPHIC FINDING IN THE CHEST. Limited or Localized CT 09/17/17 17:56 IMPRESSION: Urine distended bladder is identified. There is asymmetric perinephric soft tissue stranding on the left which is a nonspecific finding but can be seen with an infectious process involving the kidney. Clinical correlation is recommended. Other findings as noted above Assessment & Plan - Diagnosis (1) Morbid obesity with BMI of 45.0-49.9, adult Is this a current diagnosis for this admission?: Yes Plan: Encourage slow steady weight loss. Continue daily weights suspect some of her gain is from fluid gain. Encourage lifestyle modifications and decrease sodium intake increase activity (2) UTI (urinary tract infection) Qualifiers: Urinary tract infection type: acute cystitis Hematuria presence: with hematuria Qualified Code(s): N30.01 - Acute cystitis with hematuria Is this a current diagnosis for this admission?: Yes Plan: Continue IV Rocephin suspect another 3 days IV. She is susceptible to Cipro plan to discharge her home on oral Cipro. (3) Sepsis Qualifiers: Sepsis type: sepsis due to unspecified organism Qualified Code(s): A41.9 - Sepsis, unspecified organism Is this a current diagnosis for this admission?: Yes Plan: Continue IV antibiotics suspect another 3 days. Consider discharge home on antibiotics after 2 more days of IV antibiotics. If patient is oriented and showing signs of improvement (4) HTN (hypertension) Qualifiers: Hypertension type: essential hypertension Qualified Code(s): I10 - Essential (primary) hypertension Is this a current diagnosis for this admission?: Yes Plan: Will DC IV fluids for now. Give patient some IV Lasix for diuresing was taking it as needed at home for weight gain of greater than 3 pounds in 1 day continue monitor her blood pressure. Plan to attempt weaning off her O2. Encourage patient get up out of bed ambulating home. Continue daily weights. Patient had almost 10kg weight gain since admission. Continue monitor daily weights. Will give some IV Lasix for now.
[2017-09-21] MEDS: ATORVASTATIN CALCIUM 40 MG TABLET PO SCH (22:08)
[2017-09-21] MEDS: HYDROXYZINE PAMOATE 50 MG CAPSULE PO SCH (22:12)
[2017-09-22] MEDS: HEPARIN SOD (PORCINE) 5,000 UNIT/ML 1 ML SYRINGE SUBCUT SCH ×3 (05:05→21:09)
[2017-09-22] MEDS: LEVOTHYROXINE SODIUM 0.075 MG TABLET PO SCH (05:19)
[2017-09-22 07:13] LABS: ABSOLUTE BASOPHILS # (AUTO) 0.1 10^3/uL (0.0-0.2); ABSOLUTE EOSINOPHILS # (AUTO) 0.3 10^3/uL (0.0-0.6); ABSOLUTE LYMPHOCYTES (AUTO) 1.3 10^3/uL (0.5-4.7); ABSOLUTE MONOCYTES (AUTO) 0.8 10^3/uL (0.1-1.4); ABSOLUTE NEUT (AUTO) 8.9 10^3/uL (1.7-8.2); BASOPHILS % (AUTO) 0.6 % (0-2); EOSINOPHILS % (AUTO) 2.5 % (0-6); HEMATOCRIT 31.3 % (36.0-47.0); HEMOGLOBIN 10.3 g/dL (12.0-15.5); LYMPHOCYTES % (AUTO) 11.4 % (13-45); MEAN CORPUSCULAR HEMOGLOBIN 30.8 pg (27.0-33.4); MEAN CORPUSCULAR HGB CONC 32.8 g/dL (32.0-36.0); MEAN CORPUSCULAR VOLUME 94 fl (80-97); PLATELET COUNT 279 10^3/uL (150-450); RED BLOOD COUNT 3.34 10^6/uL (3.72-5.28); RED CELL DISTRIBUTION WIDTH 13.9 % (11.5-14.0); SEGMENTED NEUTROPHILS % (AUTO) 78.5 % (42-78); TOTAL CELLS COUNTED % (AUTO) 100 %; WHITE BLOOD COUNT 11.4 10^3/uL (4.0-10.5)
[2017-09-22 07:34] LABS: ALANINE AMINOTRANSFERASE 104 U/L (9-52); ALBUMIN 2.7 g/dL (3.5-5.0); ALKALINE PHOSPHATASE 90 U/L (38-126); ANION GAP 9 (5-19); ASPARTATE AMINO TRANSFERASE 65 U/L (14-36); BILIRUBIN,DIRECT 0.2 mg/dL (0.0-0.4); BILIRUBIN,TOTAL 0.3 mg/dL (0.2-1.3); BLOOD UREA NITROGEN 10 mg/dL (7-20); CALCIUM 9.9 mg/dL (8.4-10.2); CARBON DIOXIDE 30 mmol/L (22-30); CHLORIDE 110 mmol/L (98-107); GLUCOSE 93 mg/dL (75-110); POTASSIUM 4.2 mmol/L (3.6-5.0); SODIUM 149.2 mmol/L (137-145); TOTAL PROTEIN 5.3 g/dL (6.3-8.2)
[2017-09-22] MEDS: GABAPENTIN 300 MG CAPSULE PO SCH ×2 (08:32→21:07)
[2017-09-22] MEDS: ANASTROZOLE 1 MG TABLET PO SCH (10:13)
[2017-09-22] MEDS: ASPIRIN 81 MG TABLET, ENT COATED PO SCH (10:17)
[2017-09-22] MEDS: CEFTRIAXONE 2 GM/D5W RTU 2 GM/50 ML RTUPB IV SCH (10:17)
[2017-09-22] MEDS: DOCUSATE SODIUM 100 MG CAPSULE PO SCH ×2 (10:18→18:07)
[2017-09-22] MEDS: CITALOPRAM HYDROBROMIDE 20 MG TABLET PO SCH (10:18)
[2017-09-22] MEDS: CLOPIDOGREL BISULFATE 75 MG TABLET PO SCH (10:18)
[2017-09-22] MEDS: LISINOPRIL 10 MG TABLET PO SCH (10:19)
[2017-09-22] MEDS: METOPROLOL SUCCINATE 25 MG TAB.SR.24H PO SCH (10:20)
[2017-09-22] MEDS: RISPERIDONE 1 MG TABLET PO SCH ×2 (10:20→21:07)
--- NOTE | 2017-09-22 15:57 | PDOC PROGRESS REPORT ---
Subjective Progress Note for:: 09/22/17 Subjective:: 67-year-old female past medical history of chronic urinary tract infections. Patient was admitted with confusion, low blood pressure, elevated heart rate, sepsis secondary to urinary tract infection. Urine and blood cultures both positive for E. coli gram-positive rods. Currently on Rocephin which is susceptible. Patient and friend states she is doing much better today less confusion. Afebrile up out of bed to bedside commode. Has a better appetite. Denies any more complaints of back pain seen in bed alert and oriented 3. Blood pressures little more elevated today and she seems to have more edema to her lower extremities. Slight dyspnea at rest. Patient more alert and oriented today will need home health RN PT OT. Patient refused to go to rehab but did recommend this for her. Patient is a Jehovah witness. Reason For Visit: SEPSIS, PYELONEPHRITIS Physical Exam Vital Signs: Temp Pulse Resp BP Pulse Ox 97.7 F 60 19 177/78 H 99 09/22/17 11:31 09/22/17 11:31 09/22/17 11:31 09/22/17 11:31 09/22/17 11:31 Intake & Output 09/21/17 09/22/17 09/23/17 06:59 06:59 06:59 Intake Total 3403 1189 Output Total 2800 700 Balance 603 489 Weight 124.7 kg General appearance: PRESENT: no acute distress, well-developed, well-nourished Head exam: PRESENT: atraumatic, normocephalic Eye exam: PRESENT: conjunctiva pink, EOMI, PERRLA. ABSENT: scleral icterus Ear exam: PRESENT: normal external ear exam Mouth exam: PRESENT: moist, tongue midline Neck exam: ABSENT: carotid bruit, JVD, lymphadenopathy, thyromegaly Respiratory exam: PRESENT: clear to auscultation singh. ABSENT: rales, rhonchi, wheezes Cardiovascular exam: PRESENT: RRR. ABSENT: diastolic murmur, rubs, systolic murmur Pulses: PRESENT: normal dorsalis pedis pul Vascular exam: PRESENT: normal capillary refill GI/Abdominal exam: PRESENT: normal bowel sounds, soft. ABSENT: distended, guarding, mass, organolmegaly, rebound, tenderness Rectal exam: PRESENT: deferred Extremities exam: PRESENT: full ROM. ABSENT: calf tenderness, clubbing, pedal edema Musculoskeletal exam: PRESENT: ambulatory Neurological exam: PRESENT: alert, awake, oriented to person, oriented to place , oriented to time, oriented to situation, CN II-XII grossly intact. ABSENT: motor sensory deficit Psychiatric exam: PRESENT: appropriate affect, normal mood. ABSENT: homicidal ideation, suicidal ideation Skin exam: PRESENT: dry, intact, warm. ABSENT: cyanosis, rash Results Laboratory Results: 09/22/17 06:26 09/22/17 06:26 09/22/17 09/22/17 06:26 06:26 WBC 11.4 H RBC 3.34 L Hgb 10.3 L Hct 31.3 L MCV 94 MCH 30.8 MCHC 32.8 RDW 13.9 Plt Count 279 Seg Neutrophils % 78.5 H Lymphocytes % 11.4 L Monocytes % 7.0 Eosinophils % 2.5 Basophils % 0.6 Absolute Neutrophils 8.9 H Absolute Lymphocytes 1.3 Absolute Monocytes 0.8 Absolute Eosinophils 0.3 Absolute Basophils 0.1 Sodium 149.2 H Potassium 4.2 Chloride 110 H Carbon Dioxide 30 Anion Gap 9 BUN 10 Creatinine 0.87 Est GFR ( Amer) > 60 Est GFR (Non-Af Amer) > 60 Glucose 93 Calcium 9.9 Total Bilirubin 0.3 AST 65 H ALT 104 H Alkaline Phosphatase 90 Total Protein 5.3 L Albumin 2.7 L Impressions: Chest X-Ray 09/17/17 12:56 IMPRESSION: NO ACUTE RADIOGRAPHIC FINDING IN THE CHEST. Limited or Localized CT 09/17/17 17:56 IMPRESSION: Urine distended bladder is identified. There is asymmetric perinephric soft tissue stranding on the left which is a nonspecific finding but can be seen with an infectious process involving the kidney. Clinical correlation is recommended. Other findings as noted above Assessment & Plan - Diagnosis (1) Sepsis Qualifiers: Sepsis type: sepsis due to unspecified organism Qualified Code(s): A41.9 - Sepsis, unspecified organism Is this a current diagnosis for this admission?: Yes Plan: Continue IV antibiotics suspect another 3 days. Consider discharge home on antibiotics after a few more days of IV antibiotics suspect Saturday or Saturday if patient is oriented and showing signs of improvement (2) Morbid obesity with BMI of 45.0-49.9, adult Is this a current diagnosis for this admission?: Yes (3) UTI (urinary tract infection) Qualifiers: Urinary tract infection type: acute cystitis Hematuria presence: with hematuria Qualified Code(s): N30.01 - Acute cystitis with hematuria Is this a current diagnosis for this admission?: Yes Plan: Continue IV Rocephin suspect another 3 days IV. She is susceptible to Cipro plan to discharge her home on oral Cipro. (4) HTN (hypertension) Qualifiers: Hypertension type: essential hypertension Qualified Code(s): I10 - Essential (primary) hypertension Is this a current diagnosis for this admission?: Yes (5) Pyelonephritis Is this a current diagnosis for this admission?: Yes Plan: Patient tolerating antibiotics well. Confusion is much better (6) Bipolar 1 disorder Is this a current diagnosis for this admission?: Yes Plan: Continue her home medications - Plan Summary Plan Summary: Continue IV antibiotics. Encourage patient ambulate in the king. Wean off O2. Anticipate discharge home next day or so
[2017-09-22] MEDS: ATORVASTATIN CALCIUM 40 MG TABLET PO SCH (21:07)
[2017-09-22] MEDS: HYDROXYZINE PAMOATE 50 MG CAPSULE PO SCH (21:07)
[2017-09-23] MEDS: LEVOTHYROXINE SODIUM 0.075 MG TABLET PO SCH (05:40)
[2017-09-23] MEDS: HEPARIN SOD (PORCINE) 5,000 UNIT/ML 1 ML SYRINGE SUBCUT SCH (05:42)
[2017-09-23] MEDS: GABAPENTIN 300 MG CAPSULE PO SCH (07:57)
[2017-09-23] MEDS: CEFTRIAXONE 2 GM/D5W RTU 2 GM/50 ML RTUPB IV SCH (09:51)
[2017-09-23] MEDS: LISINOPRIL 10 MG TABLET PO SCH (09:51)
[2017-09-23] MEDS: DOCUSATE SODIUM 100 MG CAPSULE PO SCH (09:52)
[2017-09-23] MEDS: CITALOPRAM HYDROBROMIDE 20 MG TABLET PO SCH (09:53)
[2017-09-23] MEDS: CLOPIDOGREL BISULFATE 75 MG TABLET PO SCH (09:53)
[2017-09-23] MEDS: METOPROLOL SUCCINATE 25 MG TAB.SR.24H PO SCH (09:53)
[2017-09-23] MEDS: RISPERIDONE 1 MG TABLET PO SCH (09:54)
[2017-09-23] MEDS: ASPIRIN 81 MG TABLET, ENT COATED PO SCH (09:54)
[2017-09-23] MEDS: ANASTROZOLE 1 MG TABLET PO SCH (09:55)
[2017-09-23 12:36] VITALS: BP 151/76
--- NOTE | 2017-09-23 15:16 | PDOC DISCHARGE SUMMARY ---
General - Admit/Disc Date/PCP Admission Date/Primary Care Provider: 09/17/17 18:45 Discharge Date: 09/23/17 - Discharge Diagnosis (1) Pyelonephritis Is this a current diagnosis for this admission?: Yes Summary: Patient had pyelonephritis with altered mental status changes. She tolerated IV antibiotics, fluids, and seems back to her baseline is stable to go home. Patient wants to be discharged back to her home with home health PT RN and home health aide (2) Sepsis Is this a current diagnosis for this admission?: Yes Summary: Sepsis improved with antibiotics and treatment. Had negative blood cultures but positive urine cultures was susceptible to Cipro patient was treated with Rocephin IV (3) Morbid obesity with BMI of 45.0-49.9, adult Is this a current diagnosis for this admission?: Yes Summary: Encourage slow steady weight loss. Increase activity prevent sedentary lifestyle (4) UTI (urinary tract infection) Is this a current diagnosis for this admission?: Yes Summary: Encourage patient to prevent dehydration and to stay well hydrated. To lay off soft drinks and tea increase water intake follow-up with PCP in 1 week (5) HTN (hypertension) Is this a current diagnosis for this admission?: Yes (6) Bipolar 1 disorder Is this a current diagnosis for this admission?: Yes - Additional Information Resuscitation Status: Full Code Discharge Diet: Diabetic Discharge Activity: Activity As Tolerated Prescriptions: Ciprofloxacin HCl [Cipro 500 mg Tablet] 500 mg PO BID 7 Days #14 tablet Home Medications: Albuterol Sulfate [Proair HFA Inhalation Aerosol 8.5 gm MDI] 2 puff IH Q4HP PRN 09/17/17 Alendronate Sodium [Fosamax 70 mg Tablet] 70 mg PO CONNOR@0600 09/17/17 Anastrozole [Arimidex 1 mg Tablet] 1 mg PO DAILY 09/17/17 Aspirin [Ecotrin 81 mg EC Tablet] 81 mg PO DAILY 09/17/17 Atorvastatin Calcium [Lipitor 40 mg Tablet] 40 mg PO QHS 09/17/17 Citalopram Hydrobromide [Celexa 10 mg Tablet] 10 mg PO DAILY 09/17/17 Clopidogrel Bisulfate [Plavix 75 mg Tablet] 75 mg PO DAILY 09/17/17 Gabapentin [Neurontin 300 mg Capsule] 300 mg PO QHS 09/17/17 Gabapentin [Neurontin 300 mg Capsule] 600 mg PO QAM 09/17/17 Hydroxyzine Pamoate [Vistaril 50 mg Capsule] 50 mg PO QHS 09/17/17 Levothyroxine Sodium [Synthroid 0.075 mg Tablet] 0.075 mg PO Q6AM 09/17/17 Lisinopril [Prinivil] 10 mg PO DAILY 09/17/17 Metoprolol Succinate [Toprol Xl] 25 mg PO DAILY 09/17/17 Oxybutynin Chloride [Ditropan 5 mg Tablet] 5 mg PO TID 09/17/17 Risperidone [Risperdal] 4 mg PO DAILY 09/17/17 Ciprofloxacin HCl [Cipro 500 mg Tablet] 500 mg PO BID 7 Days #14 tablet Docusate Sodium [Colace 100 mg Capsule] 100 mg PO BID capsule 09/23/17 History of Present Illness History of Present Illness: GILMAR MARKHAM is a 67 year old female Hospital Course Hospital Course: Patient was admitted on 09/17/17 for urosepsis, confusion, hypotensive, systolic blood pressure was 60. Heart rate 120s.. Patient white blood count 15.4 patient had evidence of perinephritic stranding on her CT scan. Patient's antihypertensive were held. She had positive urine culture sensitive to Cipro was sent home with a 7 days worth patient did receive IV antibiotics while in the hospital and IV fluids tolerated well Physical Exam Vital Signs: Temp Pulse Resp BP Pulse Ox 97.6 F 72 18 152/81 H 90 L 09/23/17 07:50 09/23/17 07:50 09/23/17 07:50 09/23/17 07:50 09/23/17 07:50 Intake & Output 09/22/17 09/23/17 09/24/17 06:59 06:59 06:59 Intake Total 1189 1682 Output Total 700 1100 Balance 489 582 Weight 122.8 kg General appearance: PRESENT: no acute distress, morbidly obese, well-developed, well-nourished Head exam: PRESENT: atraumatic, normocephalic Eye exam: PRESENT: conjunctiva pink, EOMI, PERRLA. ABSENT: scleral icterus Ear exam: PRESENT: normal external ear exam Mouth exam: PRESENT: moist, tongue midline Neck exam: ABSENT: carotid bruit, JVD, lymphadenopathy, thyromegaly Respiratory exam: PRESENT: clear to auscultation singh. ABSENT: rales, rhonchi, wheezes Cardiovascular exam: PRESENT: RRR. ABSENT: diastolic murmur, rubs, systolic murmur Pulses: PRESENT: normal dorsalis pedis pul Vascular exam: PRESENT: normal capillary refill GI/Abdominal exam: PRESENT: normal bowel sounds, soft. ABSENT: distended, guarding, mass, organolmegaly, rebound, tenderness Rectal exam: PRESENT: deferred Extremities exam: PRESENT: full ROM. ABSENT: calf tenderness, clubbing, pedal edema Musculoskeletal exam: PRESENT: ambulatory Neurological exam: PRESENT: alert, awake, oriented to person, oriented to place , oriented to time, oriented to situation, CN II-XII grossly intact. ABSENT: motor sensory deficit Psychiatric exam: PRESENT: appropriate affect, normal mood. ABSENT: homicidal ideation, suicidal ideation Skin exam: PRESENT: dry, intact, warm. ABSENT: cyanosis, rash Results Laboratory Results: 09/22/17 06:26 09/22/17 06:26 Impressions: Chest X-Ray 09/17/17 12:56 IMPRESSION: NO ACUTE RADIOGRAPHIC FINDING IN THE CHEST. Limited or Localized CT 09/17/17 17:56 IMPRESSION: Urine distended bladder is identified. There is asymmetric perinephric soft tissue stranding on the left which is a nonspecific finding but can be seen with an infectious process involving the kidney. Clinical correlation is recommended. Other findings as noted above Plan Discharge Plan: Continue oral antibiotics outpatient for another week she is to follow-up with primary care physician in 4-5 days outpatient. Repeat peak BUN and CBC at that time Time Spent: Less than 30 Minutes
== END 2017-09-23 13:05 | disposition home health service (06) | DRG 872 ==
LOC: ER 12:11 → OBSVTOIN 18:45 → EH 18:45 → 4S 20:20
PROVIDERS: ADMIT Pediatrics; ATTEND Pediatrics
DX: A41.9 Sepsis, unspecified organism (principal); N10 Acute pyelonephritis; Z68.42 Body mass index [BMI] 45.0-49.9, adult; N17.9 Acute kidney failure, unspecified; B96.20 Unspecified Escherichia coli [E. coli] as the cause of diseases classified elsewhere; E86.0 Dehydration; F31.9 Bipolar disorder, unspecified; D64.9 Anemia, unspecified; M19.90 Unspecified osteoarthritis, unspecified site; J44.9 Chronic obstructive pulmonary disease, unspecified; I10 Essential (primary) hypertension; E78.5 Hyperlipidemia, unspecified; E66.01 Morbid (severe) obesity due to excess calories; Z95.0 Presence of cardiac pacemaker; Z87.440 Personal history of urinary (tract) infections; Z88.0 Allergy status to penicillin; Z86.73 Personal history of transient ischemic attack (TIA), and cerebral infarction without residual deficits; I49.5 Sick sinus syndrome; Z85.3 Personal history of malignant neoplasm of breast; Z92.21 Personal history of antineoplastic chemotherapy; Z90.49 Acquired absence of other specified parts of digestive tract
CPT/HCPCS: 36415; 71010; 71020; 76380; 80048; 80053; 81001; 83605; 83735; 84443; 85025; 87040; 87077; 87086; 87088; 87186; 93005; 93010; 96361; 96365; 99285; G8978-GP; G8979-GP; J0696; J1644; J1940; J3490; J7030

== ENCOUNTER 2018-02-16 17:26 | Emergency (ER) | payer MEDICARE, OTHER ==
[2018-02-16] MEDS ORDERED: HYDRALAZINE HCL INJ/PF 20 MG/1 ML SDV IV ONE (17:57)
--- NOTE | 2018-02-16 18:00 | ER Document Report ---
ED Medical Screen (RME) - General Chief Complaint: High Blood Pressure Stated Complaint: BLOOD PRESSURE ISSUES Time Seen by Provider: 02/16/18 17:48 Notes: RAPID MEDICAL EVALUATION DISCLOSURE I have seen this patient as part of a Rapid Medical Evaluation and, if applicable, placed any initially appropriate orders. The patient will be seen and fully evaluated, including a full history and physical exam, by a provider ( in Main ED or Fast Track) when a room becomes available. 67-year-old female PMH hypertension on metoprolol and lisinopril here with complaints of headaches constant over the past 1 week. She has not missed any doses of her metoprolol or lisinopril and the dosing has not changed in the past 2 weeks. In fact, she was only on metoprolol until about 1 month ago which is when they added lisinopril as a second agent. She does not know her baseline BPs. She denies any chest pain shortness of breath numbness tingling weakness vision change. The patient is a poor historian and for this reason I am unable to obtain an accurate history or review of systems. BP for EMS was 221 /120. EXAM CTAB RRR Strength 5/5 with intact sensation all extremities TRAVEL OUTSIDE OF THE [place] IN LAST 30 DAYS: No - Related Data Allergies/Adverse Reactions: Penicillins Allergy (Mild, Verified 06/22/17 14:39) rash Past Medical History - Past Medical History Cardiac Medical History: Reports: Hx Hypercholesterolemia, Hx Hypertension Denies: Hx Congestive Heart Failure, Hx Heart Attack Pulmonary Medical History: Reports: Hx Bronchitis, Hx COPD, Hx Pneumonia Denies: Hx Asthma, Hx Tuberculosis Neurological Medical History: Reports: Hx Cerebrovascular Accident. Denies: Hx Seizures Renal/ Medical History: Denies: Hx End Stage Renal Disease, Hx Kidney Stones, Hx Peritoneal Dialysis Malignancy Medical History: Reports: Hx Breast Cancer GI Medical History: Denies: Hx Gastroesophageal Reflux Disease, Hx Ulcer Musculoskeltal Medical History: Reports Hx Arthritis Psychiatric Medical History: Reports: Hx Bipolar Disorder, Hx Depression Denies: Hx Schizophrenia Past Surgical History: Reports: Hx Abdominal Surgery - hernia repair, Hx Breast Surgery - cyst removed, Hx Cardiac Surgery - pacemaker(dual), Hx Cholecystectomy , Hx Herniorrhaphy, Hx Pacemaker - Immunizations Hx Diphtheria, Pertussis, Tetanus Vaccination: Yes History of Influenza Vaccine for 06/2017 - 11/2017 Season: Yes Influenza Administration Date for 06/2017 - 11/2017 Season: 07/24/17 Physical Exam - Vital signs Vitals: Temp Pulse Resp BP Pulse Ox 96.9 F L 65 22 H 218/101 H 97 02/16/18 17:33 02/16/18 17:33 02/16/18 17:33 02/16/18 17:33 02/16/18 17:33 Course - Vital Signs Vital signs: Temp Pulse Resp BP Pulse Ox 96.9 F L 65 22 H 218/101 H 97 02/16/18 17:33 02/16/18 17:33 02/16/18 17:33 02/16/18 17:33 02/16/18 17:33 Doctor's Discharge - Discharge Referrals: SANDEE HANCOCK FNP [Primary Care Provider] - Follow up as needed
--- NOTE | 2018-02-16 18:44 | RADIOLOGY REPORT (SQ) ---
EXAM DESCRIPTION: CHEST 2 VIEWS COMPLETED DATE/TIME: 02/16/2018 6:29 pm REASON FOR STUDY: BP 220/120 COMPARISON: 02/15/2015. EXAM PARAMETERS: NUMBER OF VIEWS: two views TECHNIQUE: Digital Frontal and Lateral radiographic views of the chest acquired. RADIATION DOSE: NA LIMITATIONS: none FINDINGS: LUNGS AND PLEURA: No opacities, masses or pneumothorax. No pleural effusion. MEDIASTINUM AND HILAR STRUCTURES: No masses or contour abnormalities. HEART AND VASCULAR STRUCTURES: Heart normal size. No evidence for failure. BONES: No acute findings. HARDWARE: Pacemaker. OTHER: No other significant finding. IMPRESSION: NO ACUTE RADIOGRAPHIC FINDING IN THE CHEST. TECHNICAL DOCUMENTATION: JOB ID: [id number] [employer]- All Rights Reserved Reading location - IP/workstation name: [email or web address]
[2018-02-16 19:10] LABS: ABSOLUTE BASOPHILS # (AUTO) 0.1 10^3/uL (0.0-0.2); ABSOLUTE EOSINOPHILS # (AUTO) 0.2 10^3/uL (0.0-0.6); ABSOLUTE LYMPHOCYTES (AUTO) 2.4 10^3/uL (0.5-4.7); ABSOLUTE MONOCYTES (AUTO) 0.6 10^3/uL (0.1-1.4); ABSOLUTE NEUT (AUTO) 6.4 10^3/uL (1.7-8.2); EOSINOPHILS % (AUTO) 2.5 % (0-6); HEMATOCRIT 39.5 % (36.0-47.0); HEMOGLOBIN 12.9 g/dL (12.0-15.5); LYMPHOCYTES % (AUTO) 24.6 % (13-45); MEAN CORPUSCULAR HEMOGLOBIN 30.2 pg (27.0-33.4); MEAN CORPUSCULAR HGB CONC 32.7 g/dL (32.0-36.0); MEAN CORPUSCULAR VOLUME 92 fl (80-97); MONOCYTES % (AUTO) 6.5 % (3-13); PLATELET COUNT 274 10^3/uL (150-450); RED BLOOD COUNT 4.27 10^6/uL (3.72-5.28); RED CELL DISTRIBUTION WIDTH 13.4 % (11.5-14.0); SEGMENTED NEUTROPHILS % (AUTO) 65.4 % (42-78); TOTAL CELLS COUNTED % (AUTO) 100 %; WHITE BLOOD COUNT 9.8 10^3/uL (4.0-10.5)
[2018-02-16 19:28] LABS: ALANINE AMINOTRANSFERASE 34 U/L (9-52); ALBUMIN 3.8 g/dL (3.5-5.0); ALKALINE PHOSPHATASE 79 U/L (38-126); ANION GAP 10 (5-19); ASPARTATE AMINO TRANSFERASE 27 U/L (14-36); BILIRUBIN,DIRECT 0.2 mg/dL (0.0-0.4); BILIRUBIN,TOTAL 0.2 mg/dL (0.2-1.3); BLOOD UREA NITROGEN 22 mg/dL (7-20); CARBON DIOXIDE 35 mmol/L (22-30); CHLORIDE 102 mmol/L (98-107); GLUCOSE 111 mg/dL (75-110); SODIUM 147.3 mmol/L (137-145); TOTAL PROTEIN 6.9 g/dL (6.3-8.2)
[2018-02-16 20:03] LABS: APPEARANCE,URINE CLEAR; BILIRUBIN,URINE NEGATIVE (NEGATIVE); COLOR,URINE STRAW; GLUCOSE, URINE NEGATIVE (NEGATIVE); KETONES,URINE NEGATIVE (NEGATIVE); LEUKOCYTE ESTERASE,URINE NEGATIVE (NEGATIVE); NITRITE,URINE NEGATIVE (NEGATIVE); PROTEIN,URINE NEGATIVE (NEGATIVE); URINE SPECIFIC GRAVITY 1.003; UROBILINOGEN,URINE NEGATIVE mg/dL (<2.0)
--- NOTE | 2018-02-16 20:07 | ER Document Report ---
ED General - General Chief Complaint: High Blood Pressure Stated Complaint: BLOOD PRESSURE ISSUES Time Seen by Provider: 02/16/18 17:48 Notes: Patient is a 67 year old female that comes emergency department chief complaint of uncontrolled blood pressure, she reports intermittent headaches that are mild and respond to ibuprofen for the past week, she states that she became nervous about her blood pressure being elevated tonight and came in by ambulance. She denies current headache, she denies any chest pain, shortness breath, dizziness, focal numbness or weakness, she reports she has been urinating without difficulty. Patient has already received 10 mg of hydralazine by triage. Patient currently takes 10 mg of lisinopril and 25 mg of metoprolol succinate daily, she states that her blood pressure used to be normal but ever since they started weaning her off of her Risperdal that she takes for bipolar. Her blood pressure has been trending upwards. She is starting to take Abilify in place of the Risperdal, her last Resporal doses tomorrow, she is being weaned off of it because of elevated prolactin levels. She has a follow-up with her provider on Saturday because of blood pressure issues. She is on Plavix, she has a history of TIA but denies history of [place]. TRAVEL OUTSIDE OF THE [place] IN LAST 30 DAYS: No - Related Data Allergies/Adverse Reactions: Penicillins Allergy (Mild, Verified 06/22/17 14:39) rash Past Medical History - General Information source: Patient - Social History Smoking Status: Never Smoker Chew tobacco use (# tins/day): No Frequency of alcohol use: None Drug Abuse: None Lives with: Family Family History: None, Malignancy Patient has suicidal ideation: No Patient has homicidal ideation: No - Past Medical History Cardiac Medical History: Reports: Hx Hypercholesterolemia, Hx Hypertension Denies: Hx Congestive Heart Failure, Hx Heart Attack Pulmonary Medical History: Reports: Hx Bronchitis, Hx COPD, Hx Pneumonia Denies: Hx Asthma, Hx Tuberculosis Neurological Medical History: Reports: Hx Cerebrovascular Accident. Denies: Hx Seizures Renal/ Medical History: Denies: Hx End Stage Renal Disease, Hx Kidney Stones, Hx Peritoneal Dialysis Malignancy Medical History: Reports: Hx Breast Cancer GI Medical History: Denies: Hx Gastroesophageal Reflux Disease, Hx Ulcer Musculoskeltal Medical History: Reports Hx Arthritis Psychiatric Medical History: Reports: Hx Bipolar Disorder, Hx Depression Denies: Hx Schizophrenia Past Surgical History: Reports: Hx Abdominal Surgery - hernia repair, Hx Breast Surgery - cyst removed, Hx Cardiac Surgery - pacemaker(dual), Hx Cholecystectomy , Hx Herniorrhaphy, Hx Pacemaker - Immunizations Hx Diphtheria, Pertussis, Tetanus Vaccination: Yes Hx Pneumococcal Vaccination: 06/23/08 Review of Systems - Review of Systems Constitutional: No symptoms reported EENT: No symptoms reported Cardiovascular: See HPI Respiratory: No symptoms reported Gastrointestinal: No symptoms reported Genitourinary: No symptoms reported Female Genitourinary: No symptoms reported Musculoskeletal: No symptoms reported Skin: No symptoms reported Hematologic/Lymphatic: No symptoms reported Neurological/Psychological: See HPI Physical Exam - Vital signs Vitals: Temp Pulse Resp BP Pulse Ox 96.9 F L 65 22 H 218/101 H 97 02/16/18 17:33 02/16/18 17:33 02/16/18 17:33 02/16/18 17:33 02/16/18 17:33 - Notes Notes: GENERAL: Alert, interacts well. No acute distress. HEAD: Normocephalic, atraumatic. EYES: Pupils equal, round, and reactive to light. Extraocular movements intact. ENT: Oral mucosa moist, tongue midline. NECK: Full range of motion. Supple. Trachea midline. LUNGS: Clear to auscultation bilaterally, no wheezes, rales, or rhonchi. No respiratory distress. HEART: Regular rate and rhythm. No murmur ABDOMEN: Soft, non-tender. Non-distended. Bowel sounds present in all 4 quadrants. EXTREMITIES: Moves all 4 extremities spontaneously. No edema, normal radial and dorsalis pedis pulses bilaterally. No cyanosis. Patient walks carefully with a cane but is steady. BACK: no cervical, thoracic, lumbar midline tenderness. No saddle anesthesia, normal distal neurovascular exam. NEUROLOGICAL: Alert and oriented x3. Normal speech. [cranial nerves II through XII grossly intact]. PSYCH: Normal affect, normal mood. SKIN: Warm, dry, normal turgor. No rashes or lesions noted. Course - Re-evaluation Re-evalutation: Patient is well-appearing on exam. She denies headache, she denies any current complaints. She has not had any chest pain, she has not had any vomiting, she has not had any neuro deficits. Neurological exam is normal. She is hypertensive. She reports to me she is checking her blood pressures at home and she has been consistently hypertensive including in the 200s for the past several days. Suspect this could be related to her medication adjustment and coming off Risperdal although this is not certain. Patient reports compliance with her current regimen of medication. Reviewed workup from triage, CBC unremarkable, troponin indeterminate, chemistry unremarkable including normal renal functioning. Chest x-ray was also performed and this was reviewed and unremarkable. Patient reevaluated again, still denies any symptoms. Patient is on Plavix, however because she is asymptomatic and has a normal neurological exam I do not see any indication to perform CAT scan imaging. Patient was given hydralazine 10 mg IV before she came to the room but this was hours ago and appears to have worn off. Patient has asymptomatic hypertension. Patient was discussed with Dr. Teran. I discussed details the patient carefully. Patient states she has a follow-up appointment in 3 days, after lengthy discussion decision was made to increase her to lisinopril 20 mg daily, continue metoprolol, have her check her blood pressures at home and log them, and then follow-up in 3 days to have her adjustments made. She states she has plenty of 10 mg lisinopril to take 2 daily until she is seen again. I discussed return precautions carefully with patient. Patient given initial 10 mg dose to supplement her for today. Patient states understanding and agreement with the plan. - Vital Signs Vital signs: Temp Pulse Resp BP Pulse Ox 96.9 F L 61 19 214/111 H 98 02/16/18 17:33 02/16/18 20:15 02/16/18 21:00 02/16/18 21:01 02/16/18 21:00 - Laboratory Result Diagrams: 02/16/18 18:49 02/16/18 18:49 Laboratory results interpreted by me: 02/16/18 18:49 Sodium 147.3 H Carbon Dioxide 35 H BUN 22 H Est GFR (Non-Af Amer) 56 L Glucose 111 H Discharge - Discharge Clinical Impression: Hypertension Qualifiers: Hypertension type: essential hypertension Qualified Code(s): I10 - Essential ( primary) hypertension Condition: Stable Disposition: HOME, SELF-CARE Additional Instructions: The elevated blood pressure levels are possibly a response of you being weaned off of your risperdol. This may take time to adjust, continue your Abilify. Increase your lisinopril to 20 mg daily (up from 10 mg daily), continue metoprolol, and follow up with your appointment as planned. Log your pressures several times daily to trend this and help adjustments. Take the written down blood pressure numbers to your appointment in the next few days. Return to the ED for any concerning symptoms including severe headache, vomiting , numbness or weakness, confusion, chest pain, dizziness, or any other concerning symptoms. Referrals: SANDEE HANCOCK FNP [Primary Care Provider] - Follow up as needed
[2018-02-16] MEDS ORDERED: LISINOPRIL 10 MG TABLET PO ONE (20:54)
[2018-02-16 21:05] VITALS: BP 214/111
== END 2018-02-16 21:15 | disposition home or self-care (01) ==
LOC: ER 17:26
DX: I10 Essential (primary) hypertension (principal); R51 Headache; Z88.0 Allergy status to penicillin; E78.00 Pure hypercholesterolemia, unspecified; Z86.73 Personal history of transient ischemic attack (TIA), and cerebral infarction without residual deficits; Z95.0 Presence of cardiac pacemaker; Z90.49 Acquired absence of other specified parts of digestive tract
CPT/HCPCS: 99284; 96374; 36415; 85025; 80053; 81001; 84484; 71046; J0360; A9270

== ENCOUNTER 2018-05-20 18:23 | Emergency (ER) | payer MEDICARE, OTHER ==
[2018-05-20] MEDS ORDERED: ACETAMINOPHEN 325 MG TABLET PO ONE (19:59)
[2018-05-20] MEDS ORDERED: ONDANSETRON 4 MG TAB.RAPDIS PO ONE (19:59)
--- NOTE | 2018-05-20 20:02 | ER Document Report ---
ED Medical Screen (RME) - General Chief Complaint: Flank Pain Stated Complaint: URINARY ISSUE Time Seen by Provider: 05/20/18 19:41 Notes: RAPID MEDICAL EVALUATION DISCLOSURE I have seen this patient as part of a Rapid Medical Evaluation and, if applicable, placed any initially appropriate orders. The patient will be seen and fully evaluated, including a full history and physical exam, by a provider ( in Main ED or Fast Track) when a room becomes available. 68-year-old female here with complaints of right flank pain nausea and difficulty urinating. This has been ongoing intermittently for the past 1 week. She has not taken anything for the pain. She has no prior history of kidney stones however has had several episodes of urosepsis requiring hospitalization. She was sent here by the urgent care facility "to rule out sepsis". EXAM Mild right CVA TTP No appreciable abdominal TTP CTAB RRR TRAVEL OUTSIDE OF THE [place] IN LAST 30 DAYS: No - Related Data Allergies/Adverse Reactions: Penicillins Allergy (Mild, Verified 06/22/17 14:39) rash Past Medical History - Social History Frequency of alcohol use: None Drug Abuse: None - Past Medical History Cardiac Medical History: Reports: Hx Hypercholesterolemia, Hx Hypertension Denies: Hx Congestive Heart Failure, Hx Heart Attack Pulmonary Medical History: Reports: Hx Bronchitis, Hx COPD, Hx Pneumonia Denies: Hx Asthma, Hx Tuberculosis Neurological Medical History: Reports: Hx Cerebrovascular Accident. Denies: Hx Seizures Renal/ Medical History: Denies: Hx End Stage Renal Disease, Hx Kidney Stones, Hx Peritoneal Dialysis Malignancy Medical History: Reports: Hx Breast Cancer GI Medical History: Denies: Hx Gastroesophageal Reflux Disease, Hx Ulcer Musculoskeltal Medical History: Reports Hx Arthritis Psychiatric Medical History: Reports: Hx Bipolar Disorder, Hx Depression Denies: Hx Schizophrenia Past Surgical History: Reports: Hx Abdominal Surgery - hernia repair, Hx Breast Surgery - cyst removed, Hx Cardiac Surgery - pacemaker(dual), Hx Cholecystectomy , Hx Herniorrhaphy, Hx Pacemaker - Immunizations Hx Diphtheria, Pertussis, Tetanus Vaccination: Yes History of Influenza Vaccine for 06/2017 - 11/2017 Season: Yes Influenza Administration Date for 06/2017 - 11/2017 Season: 07/24/17 Physical Exam - Vital signs Vitals: Temp Pulse Resp BP Pulse Ox 98.4 F 71 16 180/88 H 95 05/20/18 18:50 05/20/18 18:50 05/20/18 18:50 05/20/18 18:50 05/20/18 18:50 Course - Vital Signs Vital signs: Temp Pulse Resp BP Pulse Ox 98.4 F 71 16 180/88 H 95 05/20/18 18:50 05/20/18 18:50 05/20/18 18:50 05/20/18 18:50 05/20/18 18:50 Doctor's Discharge - Discharge Referrals: SANDEE HANCOCK FNP [Primary Care Provider] - Follow up as needed
[2018-05-20 20:35] LABS: APPEARANCE,URINE CLEAR; BILIRUBIN,URINE NEGATIVE (NEGATIVE); COLOR,URINE YELLOW; GLUCOSE, URINE NEGATIVE (NEGATIVE); KETONES,URINE NEGATIVE (NEGATIVE); LEUKOCYTE ESTERASE,URINE NEGATIVE (NEGATIVE); NITRITE,URINE NEGATIVE (NEGATIVE); PROTEIN,URINE NEGATIVE (NEGATIVE); URINE SPECIFIC GRAVITY 1.004; UROBILINOGEN,URINE NEGATIVE mg/dL (<2.0)
[2018-05-20 21:18] LABS: ABSOLUTE BASOPHILS # (AUTO) 0.1 10^3/uL (0.0-0.2); ABSOLUTE EOSINOPHILS # (AUTO) 0.3 10^3/uL (0.0-0.6); ABSOLUTE LYMPHOCYTES (AUTO) 2.4 10^3/uL (0.5-4.7); ABSOLUTE MONOCYTES (AUTO) 0.8 10^3/uL (0.1-1.4); ABSOLUTE NEUT (AUTO) 6.6 10^3/uL (1.7-8.2); BASOPHILS % (AUTO) 0.7 % (0-2); EOSINOPHILS % (AUTO) 2.8 % (0-6); HEMATOCRIT 38.5 % (36.0-47.0); HEMOGLOBIN 12.8 g/dL (12.0-15.5); LYMPHOCYTES % (AUTO) 23.6 % (13-45); MEAN CORPUSCULAR HEMOGLOBIN 30.8 pg (27.0-33.4); MEAN CORPUSCULAR HGB CONC 33.1 g/dL (32.0-36.0); MEAN CORPUSCULAR VOLUME 93 fl (80-97); MONOCYTES % (AUTO) 7.5 % (3-13); PLATELET COUNT 230 10^3/uL (150-450); RED BLOOD COUNT 4.14 10^6/uL (3.72-5.28); RED CELL DISTRIBUTION WIDTH 13.7 % (11.5-14.0); SEGMENTED NEUTROPHILS % (AUTO) 65.4 % (42-78); TOTAL CELLS COUNTED % (AUTO) 100 %; WHITE BLOOD COUNT 10.1 10^3/uL (4.0-10.5)
[2018-05-20 21:21] LABS: ALANINE AMINOTRANSFERASE 39 U/L (9-52); ALBUMIN 3.7 g/dL (3.5-5.0); ALKALINE PHOSPHATASE 86 U/L (38-126); ANION GAP 10 (5-19); ASPARTATE AMINO TRANSFERASE 35 U/L (14-36); BILIRUBIN,DIRECT 0.4 mg/dL (0.0-0.4); BILIRUBIN,TOTAL 0.5 mg/dL (0.2-1.3); BLOOD UREA NITROGEN 15 mg/dL (7-20); CALCIUM 9.6 mg/dL (8.4-10.2); CARBON DIOXIDE 34 mmol/L (22-30); CHLORIDE 100 mmol/L (98-107); GLUCOSE 98 mg/dL (75-110); LIPASE 132.5 U/L (23-300); POTASSIUM 4.4 mmol/L (3.6-5.0); TOTAL PROTEIN 6.5 g/dL (6.3-8.2)
--- NOTE | 2018-05-20 21:51 | RADIOLOGY REPORT (SQ) ---
EXAM DESCRIPTION: CT LTD RENAL STONE PROTOCOL ON COMPLETED DATE/TIME: 05/20/2018 9:20 pm REASON FOR STUDY: R flank pain, NAUSEA, DIFFICULTY URINATING COMPARISON: 09/19/2017 TECHNIQUE: CT scan of the abdomen and pelvis performed without intravenous or oral contrast. Images reviewed with lung, soft tissue, and bone windows. Reconstructed coronal and sagittal MPR images revi ewed. All images stored on PACS. All CT scanners at this facility use dose modulation, iterative reconstruction, and/or weight based d osing when appropriate to reduce radiation dose to as low as reasonably achievable (ALARA). [facility]: Dose Right [facility]: CareDose [facility]: Dose Right [facility]: Teradose 4D [facility]: Smart Expan RADIATION DOSE: CT Rad equipment meets quality standard of care and radiation dose reduction techniq ues were employed. CTDIvol: 25.9 mGy. DLP: 1356 mGy-cm.mGy. LIMITATIONS: None. FINDINGS: LOWER CHEST: No significant findings. No nodules or infiltrates. NON-CONTRASTED LIVER, SPLEEN, ADRENALS: Evaluation limited by lack of IV contrast. No identified sign ificant masses. PANCREAS: No masses. No peripancreatic inflammatory changes. GALLBLADDER: Surgically absent. RIGHT KIDNEY AND URETER: No suspicious masses. Assessment limited by lack of IV contrast. Multiple tiny cortical calcifications. No ureteral stone or obstruction. No hydronephrosis or hydroureter. LEFT KIDNEY AND URETER: No suspicious masses. Assessment limited by lack of IV contrast. Multiple s mall cortical calcifications. No ureteral stone or obstruction. No hydronephrosis or hydroureter. AORTA AND RETROPERITONEUM: No aneurysm. No retroperitoneal masses or adenopathy. BOWEL AND PERITONEAL CAVITY: No obvious masses or inflammatory changes. No free fluid. APPENDIX: Not identified. PELVIS, BLADDER, AND ABDOMINAL WALL:Urinary bladder is normal. No pelvic masses or fluid collections . BONES: No significant findings. OTHER: No other significant finding. IMPRESSION: There multiple tiny cortical calcifications in each kidney. No ureteral stone or obstru ction is seen. The urinary bladder is nondistended and normal. COMMENT: Quality ID # [id number]: Final reports with documentation of one or more dose reduction techniques (e.g., Automated exposure control, adjustment of the mA and/or kV according to patient size, use of iterative reconstruction technique) TECHNICAL DOCUMENTATION: JOB ID: [id number] [employer]- All Rights Reserved Reading location - IP/workstation name: [email or web address]
--- NOTE | 2018-05-20 22:31 | ER Document Report ---
ED General - General Mode of Arrival: Wheelchair Information source: Patient TRAVEL OUTSIDE OF THE [place] IN LAST 30 DAYS: No <RAHEEL WARE - Last Filed: 05/21/18 04:31> <BHAVESH WHITE - Last Filed: 05/21/18 04:37> - General Chief Complaint: Flank Pain Stated Complaint: URINARY ISSUE Time Seen by Provider: 05/20/18 19:41 Notes: Patient is a 68-year-old female presenting to the emergency department complaining of dysuria onset 1 week ago and right flank pain onset today. Patient states she was unable to urinate this morning and later had an episode of urinary incontinence. She states she has had similar symptoms in the past. Patient has a history of urosepsis which required hospitalization. Patient's PCP is Dr. Francisco. (RAHEEL WARE) - Related Data Allergies/Adverse Reactions: Penicillins Allergy (Mild, Verified 06/22/17 14:39) rash Past Medical History - General Information source: Patient - Social History Smoking Status: Never Smoker Frequency of alcohol use: None Drug Abuse: None Family History: None, Malignancy Patient has suicidal ideation: No Patient has homicidal ideation: No - Past Medical History Cardiac Medical History: Reports: Hx Hypercholesterolemia, Hx Hypertension Pulmonary Medical History: Reports: Hx Bronchitis, Hx COPD, Hx Pneumonia Neurological Medical History: Reports: Hx Cerebrovascular Accident Malignancy Medical History: Reports: Hx Breast Cancer Musculoskeletal Medical History: Reports Hx Arthritis Psychiatric Medical History: Reports: Hx Bipolar Disorder, Hx Depression Past Surgical History: Reports: Hx Abdominal Surgery - hernia repair, Hx Breast Surgery - cyst removed, Hx Cardiac Surgery - pacemaker(dual), Hx Cholecystectomy , Hx Herniorrhaphy, Hx Pacemaker - Immunizations Hx Diphtheria, Pertussis, Tetanus Vaccination: Yes Hx Pneumococcal Vaccination: 06/23/08 <RAHEEL WARE - Last Filed: 05/21/18 04:31> Review of Systems - Review of Systems Constitutional: No symptoms reported EENT: No symptoms reported Cardiovascular: No symptoms reported Respiratory: No symptoms reported Gastrointestinal: No symptoms reported Genitourinary: See HPI, Dysuria, Incontinence Female Genitourinary: No symptoms reported Musculoskeletal: No symptoms reported Skin: No symptoms reported Hematologic/Lymphatic: No symptoms reported Neurological/Psychological: No symptoms reported -: Yes All other systems reviewed and negative <RAHEEL WARE - Last Filed: 05/21/18 04:31> Physical Exam <RAHEEL WARE - Last Filed: 05/21/18 04:31> - Respiratory Chest status: Tender - Lower R chest wall TTP posteriorly - Back Back: No: CVA tenderness <BHAVESH WHITE - Last Filed: 05/21/18 04:37> - Vital signs Vitals: Temp Pulse Resp BP Pulse Ox 98.4 F 71 16 180/88 H 95 05/20/18 18:50 05/20/18 18:50 05/20/18 18:50 05/20/18 18:50 05/20/18 18:50 - Notes Notes: GENERAL: Alert, interacts well. No acute distress. HEAD: Normocephalic, atraumatic. EYES: Pupils equal, round, and reactive to light. Extraocular movements intact. ENT: Oral mucosa moist, tongue midline. NECK: Full range of motion. Supple. Trachea midline. LUNGS: Clear to auscultation bilaterally, no wheezes, rales, or rhonchi. No respiratory distress. HEART: Regular rate and rhythm. No murmurs, gallops, or rubs. EXTREMITIES: Moves all 4 extremities spontaneously. NEUROLOGICAL: Alert and oriented x3. Normal speech. PSYCH: Normal affect, normal mood. SKIN: Warm, dry, normal turgor. No rashes or lesions noted. (RAHEEL WARE) Course - Laboratory Result Diagrams: 05/20/18 21:00 05/20/18 21:00 <RAHEEL WARE - Last Filed: 05/21/18 04:31> - Laboratory Result Diagrams: 05/20/18 21:00 05/20/18 21:00 - Diagnostic Test Radiology reviewed: Reports reviewed <BHAVESH WHITE - Last Filed: 05/21/18 04:37> - Re-evaluation Re-evalutation: 05/20/18 Patient is a 5-year-old female who comes in complaining of urinary incontinence which she has had recently as well as some flank pain. Patient has no evidence for urinary tract infection. Blood work is within normal limits. She is tender over her right side but more her lower chest wall. Patient has full strength, sensation. No midline back tenderness to palpation. No dangerous etiology for her symptoms this evening. She will be discharged home and is to follow-up with her doctor. Understands and agrees with plan. Ready to go home. Stable for discharge (BHAVESH WHITE) - Vital Signs Vital signs: Temp Pulse Resp BP Pulse Ox 97.6 F 63 16 149/64 H 95 05/20/18 22:54 05/20/18 22:54 05/20/18 22:54 05/20/18 22:54 05/20/18 22:54 - Laboratory Laboratory results interpreted by me: 05/20/18 21:00 Carbon Dioxide 34 H Est GFR (Non-Af Amer) 53 L Discharge <RAHEEL WARE - Last Filed: 05/21/18 04:31> <BHAVESH WHITE - Last Filed: 05/21/18 04:37> - Discharge Clinical Impression: Urinary incontinence Qualifiers: Urinary Incontinence type: unspecified incontinence Qualified Code(s): R32 - Unspecified urinary incontinence Condition: Stable Disposition: HOME, SELF-CARE Instructions: Urinary Incontinence ([facility]) Additional Instructions: There was no evidence for an infection today. Please follow-up with your doctor this week. Take a copy of your results with you. Referrals: SANDEE HANCOCK FNP [Primary Care Provider] - Follow up in 3-5 days Scribe Attestation: 05/21/18 04:36 I personally performed the services described in the documentation, reviewed and edited the documentation which was dictated to the scribe in my presence, and it accurately records my words and actions. (BHAVESH WHITE)
[2018-05-20 23:01] VITALS: BP 149/64
== END 2018-05-20 23:02 | disposition home or self-care (01) ==
LOC: ER 18:23
DX: R32 Unspecified urinary incontinence (principal); R30.0 Dysuria; R10.9 Unspecified abdominal pain; I10 Essential (primary) hypertension; J44.9 Chronic obstructive pulmonary disease, unspecified; Z85.3 Personal history of malignant neoplasm of breast; Z88.0 Allergy status to penicillin
CPT/HCPCS: 99284; 36415; 87086; 83690; 85025; 80053; 81001; 76380; A9270 ×2; S0119

== ENCOUNTER 2018-08-07 09:40 | Day surgery (SDC) | payer MEDICARE, OTHER ==
[~2018-08-07 09:40] MED LIST: KETOROLAC TROMETHAMINE 0.45% 4 DROP/0.4 ML DROPERETTE OD PRN
[2018-08-07] MEDS: CYCLOPENTOLATE 0.2%/PHENYLEPHRINE 1% OPH SOLN 2 ML OD PRN ×3 (11:25→12:03)
[2018-08-07] MEDS: TROPICAMIDE 1% OPH SOLN 3 ML OD PRN ×3 (11:25→12:03)
[2018-08-07] MEDS: BESIFLOXACIN HCL 0.6% OPH SUSP 5 ML BOTTLE OD PRN ×4 (11:26→12:41)
[2018-08-07] MEDS: TETRACAINE HCL 0.5% OPH SOLN 4 ML OD PRN ×4 (11:27→12:08)
[2018-08-07] MEDS ORDERED: MIDAZOLAM 2 MG/2 ML INJ ONE (11:39)
[2018-08-07] MEDS: LIDOCAINE 1%/PHENYLEPHRINE 1.5% 1 ML VIAL ONE ×2 (12:16)
[2018-08-07] MEDS: CHONDR SU A NA/HYALUR INTRAOC KIT (SURGICARE) ONE ×2 (12:16)
[2018-08-07] MEDS: EPINEPHRINE INJ/PF 1 MG/1 ML AMPULE ONE ×2 (12:16)
[2018-08-07] MEDS ORDERED: CHONDR SU A NA/HYALUR SOD 0.5 ML DISP.SYRIN ONE (12:37)
--- NOTE | 2018-08-07 19:21 | [facility] OPERATIVE REPORT E ---
[facility] Operative Report NAME: GILMAR MARKHAM AGE: 68Y DATE OF SURGERY: 08/07/2018 ROOM: PREOPERATIVE DIAGNOSES: 1. CATARACT, RIGHT EYE. 2. PUPIL MIOSIS, RIGHT EYE. POSTOPERATIVE DIAGNOSES: 1. CATARACT, RIGHT EYE. 2. PUPIL MIOSIS, RIGHT EYE. OPERATION: Complex cataract extraction with the use of a Malyugin ring due to poor pupillary dilation. SURGEON: MIGUEL MIRANDA M.D. ANESTHESIA: TOPICAL. COMPLICATIONS: None. ESTIMATED BLOOD LOSS: None. PROCEDURE: After obtaining appropriate consent, the patient right eye was prepped and draped in sterile fashion as well as the surgeon in a sterile manner, and the cataract surgery was started. First, the paracentesis blade was used to make a small side-port incision. Viscoelastic was used to inflate the anterior chamber. Next a 2.4 mm incision was made using a 2.4 mm keratome. At this point, the pupil was less than 4.5 mm and was very miotic. In order to complete the capsulorhexis, a Malyugin ring was inserted and found to be in excellent position to help stabilize the pupil. Following this, a continuous capsulorhexis was made using a cystitome and Utrata forceps. Following this, hydrodissection was carried out to make the lens fully loose and mobile, and it was rotated 90 degrees. Following this, a divide and conquer technique was used to phacoemulsify the lens with a CDE of approximately 6.74. The remaining cortex was removed with irrigation/aspiration. Provisc was instilled into the capsular bag to inflate the bag. A SN60WF lens of 17.0 diopters was placed. The remaining viscoelastic material was removed with irrigation/aspiration. After this the Malyugin ring was removed. Following this, the incision was found to be watertight. Besivance was instilled into the eye and a protective shield was placed over the eye. The patient returned to the postoperative recovery in stable condition. This was a complex case due to the fact that the Malyugin ring was used due to poor pupillary dilation of less than or equal to 4 mm. Prior to making the capsulorrhexis, a Malyugin ring was inserted, due to poor pupillary dilation of 3 mm. This was removed at the end of the case. DICTATING PHYSICIAN: MIGUEL MIRANDA M.D. [id number] PHY#: [id number] ID: [id number] JOB#: [id number] ACCT: [id number] cc:MIGUEL MIRANDA M.D. >
--- NOTE | 2018-08-07 19:26 | [facility] DISCHARGE SUMMARY E ---
[facility] Discharge Summary NAME: GILMAR MARKHAM AGE: 68Y ADMITTED: 08/07/2018 DISCHARGED: 08/07/2018 FINAL DIAGNOSES: 1. Cataract, right eye. 2. Pupil miosis requiring a Malyugin ring. HOSPITAL COURSE: This is a 68-year-old female who underwent complex cataract extraction with use of a Malyugin ring and insertion of IOL of the right eye. Patient underwent surgery because she was having trouble seeing small print on the television. DISCHARGE INSTRUCTIONS: She should be on a regular diet. No bending at her waist, no heavy lifting. She should use Besivance, Ilevro and Durezol at 3:00 p.m. and 8:00 p.m. Sleep with a rigid shield. I will see her for a 1-day postoperative tomorrow. DICTATING PHYSICIAN: MIGUEL MIRANDA M.D. [id number] PHY#: [id number] ID: [id number] JOB#: [id number] ACCT: [id number] cc:MIGUEL MIRANDA M.D. >
== END 2018-08-07 13:24 | disposition home or self-care (01) ==
LOC: SC 09:40
PROVIDERS: ATTEND Internal Medicine
DX: H25.812 Combined forms of age-related cataract, left eye (principal); H57.03 Miosis; H40.1132 Primary open-angle glaucoma, bilateral, moderate stage; H40.033 Anatomical narrow angle, bilateral; H52.4 Presbyopia; M19.90 Unspecified osteoarthritis, unspecified site; E03.9 Hypothyroidism, unspecified; I11.9 Hypertensive heart disease without heart failure; J44.9 Chronic obstructive pulmonary disease, unspecified; E66.9 Obesity, unspecified; Z86.73 Personal history of transient ischemic attack (TIA), and cerebral infarction without residual deficits; Z68.42 Body mass index [BMI] 45.0-49.9, adult; Z88.0 Allergy status to penicillin; Z79.51 Long term (current) use of inhaled steroids; Z79.82 Long term (current) use of aspirin; Z79.899 Other long term (current) drug therapy
CPT/HCPCS: 66982; V2632; J2250; J3490 ×3; A9270; J0171; J2370; 142

== ENCOUNTER 2019-05-21 23:42 | Emergency (ER) | payer MEDICARE, OTHER ==
[2019-05-22] MEDS ORDERED: ASPIRIN 81 MG TABLET, CHEWABLE PO ONE (00:10)
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
[2019-05-22 02:19] LABS: ABSOLUTE BASOPHILS # (AUTO) 0.1 10^3/uL (0.0-0.2); ABSOLUTE EOSINOPHILS # (AUTO) 0.1 10^3/uL (0.0-0.6); ABSOLUTE LYMPHOCYTES (AUTO) 2.1 10^3/uL (0.5-4.7); ABSOLUTE MONOCYTES (AUTO) 0.7 10^3/uL (0.1-1.4); ABSOLUTE NEUT (AUTO) 7.2 10^3/uL (1.7-8.2); BASOPHILS % (AUTO) 0.5 % (0-2); EOSINOPHILS % (AUTO) 1.3 % (0-6); HEMATOCRIT 37.3 % (36.0-47.0); HEMOGLOBIN 12.7 g/dL (12.0-15.5); LYMPHOCYTES % (AUTO) 20.7 % (13-45); MEAN CORPUSCULAR HEMOGLOBIN 31.8 pg (27.0-33.4); MEAN CORPUSCULAR VOLUME 94 fl (80-97); MONOCYTES % (AUTO) 6.6 % (3-13); PLATELET COUNT 217 10^3/uL (150-450); RED BLOOD COUNT 3.98 10^6/uL (3.72-5.28); RED CELL DISTRIBUTION WIDTH 13.4 % (11.5-14.0); SEGMENTED NEUTROPHILS % (AUTO) 70.9 % (42-78); TOTAL CELLS COUNTED % (AUTO) 100 %; WHITE BLOOD COUNT 10.1 10^3/uL (4.0-10.5)
[2019-05-22 02:39] LABS: ALBUMIN 3.8 g/dL (3.5-5.0); ALKALINE PHOSPHATASE 79 U/L (38-126); ANION GAP 9 (5-19); ASPARTATE AMINO TRANSFERASE 26 U/L (14-36); BILIRUBIN,DIRECT 0.3 mg/dL (0.0-0.4); BILIRUBIN,TOTAL 0.7 mg/dL (0.2-1.3); BLOOD UREA NITROGEN 20 mg/dL (7-20); CALCIUM 9.3 mg/dL (8.4-10.2); CARBON DIOXIDE 29 mmol/L (22-30); CHLORIDE 101 mmol/L (98-107); CREATINE KINASE 74 U/L (30-135); GLUCOSE 100 mg/dL (75-110); POTASSIUM 3.3 mmol/L (3.6-5.0); TOTAL PROTEIN 6.5 g/dL (6.3-8.2)
[2019-05-22 03:02] LABS: CREATINE KINASE MB 1.1 ng/mL (<4.55); TROPONIN I 0.021 ng/mL
--- NOTE | 2019-05-22 03:23 | RADIOLOGY REPORT (SQ) ---
CLINICAL HISTORY: cp COMPARISON: 02/15/2015. TECHNIQUE: XR CHEST 2 VIEWS 05/22/2019 12:00 AM CDT FINDINGS: The heart is normal in size. Left dual-chamber pacemaker is present. Lungs are clear without consolidation, atelectasis, mass or edema. There is no pleural effusion. There is no pneumothorax. There are no acute osseous findings. IMPRESSION: Clear lungs.
[2019-05-22 03:45] VITALS: BP 183/89
[2019-05-22 04:07] LABS: APPEARANCE,URINE CLEAR; BILIRUBIN,URINE NEGATIVE (NEGATIVE); COLOR,URINE STRAW; GLUCOSE, URINE NEGATIVE (NEGATIVE); KETONES,URINE NEGATIVE (NEGATIVE); LEUKOCYTE ESTERASE,URINE NEGATIVE (NEGATIVE); NITRITE,URINE NEGATIVE (NEGATIVE); PROTEIN,URINE NEGATIVE (NEGATIVE); URINE SPECIFIC GRAVITY 1.002; UROBILINOGEN,URINE NEGATIVE mg/dL (<2.0)
[2019-05-22 04:49] LABS: URINE AMPHETAMINES SCREEN NEGATIVE; URINE BARBITURATES SCREEN NEGATIVE; URINE BENZODIAZEPINES SCREEN NEGATIVE; URINE COCAINE SCREEN NEGATIVE; URINE MARIJUANA (THC) SCREEN NEGATIVE; URINE METHADONE SCREEN NEGATIVE; URINE PHENCYCLIDINE SCREEN NEGATIVE
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
--- NOTE | 2019-05-22 07:01 | EKG REPORT ---
SEVERITY:- ABNORMAL ECG - ATRIAL-VENTRICULAR DUAL-PACED RHYTHM : Confirmed by: Jimmy Petersen MD 22-May-2019 07:00:43
== END 2019-05-22 06:39 | disposition home or self-care (01) ==
LOC: ER 23:42
DX: R07.9 Chest pain, unspecified (principal); E78.00 Pure hypercholesterolemia, unspecified; I10 Essential (primary) hypertension; J44.9 Chronic obstructive pulmonary disease, unspecified; Z85.3 Personal history of malignant neoplasm of breast; Z88.0 Allergy status to penicillin; Z95.810 Presence of automatic (implantable) cardiac defibrillator
CPT/HCPCS: 36415; 71046; 80053; 80307; 81001; 82550; 82553; 83735; 84484; 85025; 87086; 93005; 93010; 99285

== ENCOUNTER 2019-05-31 03:16 | Emergency (ER) | payer MEDICARE, OTHER ==
[2019-05-31 03:53] LABS: ABSOLUTE BASOPHILS # (AUTO) 0.1 10^3/uL (0.0-0.2); ABSOLUTE EOSINOPHILS # (AUTO) 0.1 10^3/uL (0.0-0.6); ABSOLUTE LYMPHOCYTES (AUTO) 2.2 10^3/uL (0.5-4.7); ABSOLUTE MONOCYTES (AUTO) 0.6 10^3/uL (0.1-1.4); ABSOLUTE NEUT (AUTO) 4.4 10^3/uL (1.7-8.2); BASOPHILS % (AUTO) 0.8 % (0-2); EOSINOPHILS % (AUTO) 1.8 % (0-6); HEMATOCRIT 36.1 % (36.0-47.0); HEMOGLOBIN 12.5 g/dL (12.0-15.5); LYMPHOCYTES % (AUTO) 30.1 % (13-45); MEAN CORPUSCULAR HEMOGLOBIN 31.8 pg (27.0-33.4); MEAN CORPUSCULAR HGB CONC 34.7 g/dL (32.0-36.0); MEAN CORPUSCULAR VOLUME 92 fl (80-97); MONOCYTES % (AUTO) 8.3 % (3-13); PLATELET COUNT 200 10^3/uL (150-450); RED BLOOD COUNT 3.94 10^6/uL (3.72-5.28); RED CELL DISTRIBUTION WIDTH 13.5 % (11.5-14.0); TOTAL CELLS COUNTED % (AUTO) 100 %; WHITE BLOOD COUNT 7.4 10^3/uL (4.0-10.5)
[2019-05-31 03:56] LABS: APPEARANCE,URINE CLEAR; BILIRUBIN,URINE NEGATIVE (NEGATIVE); COLOR,URINE STRAW; GLUCOSE, URINE NEGATIVE (NEGATIVE); KETONES,URINE NEGATIVE (NEGATIVE); LEUKOCYTE ESTERASE,URINE NEGATIVE (NEGATIVE); NITRITE,URINE NEGATIVE (NEGATIVE); PROTEIN,URINE NEGATIVE (NEGATIVE); URINE SPECIFIC GRAVITY 1.003; UROBILINOGEN,URINE NEGATIVE mg/dL (<2.0)
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
[2019-05-31 04:11] LABS: ACETAMINOPHEN < 10 ug/mL (10-30); ALBUMIN 3.8 g/dL (3.5-5.0); ALCOHOL < 10 mg/dL (NONE DETECTED); ALKALINE PHOSPHATASE 79 U/L (38-126); ANION GAP 10 (5-19); ASPARTATE AMINO TRANSFERASE 45 U/L (14-36); BILIRUBIN,DIRECT 0.4 mg/dL (0.0-0.4); BLOOD UREA NITROGEN 20 mg/dL (7-20); CALCIUM 8.9 mg/dL (8.4-10.2); CARBON DIOXIDE 25 mmol/L (22-30); CHLORIDE 93 mmol/L (98-107); GLUCOSE 106 mg/dL (75-110); POTASSIUM 3.2 mmol/L (3.6-5.0); SALICYLATE < 1.0 mg/dL (2.0-20.0); TOTAL PROTEIN 6.4 g/dL (6.3-8.2)
[2019-05-31] MEDS ORDERED: RINGERS SOLUTION,LACTATED 1,000 ML IV ONE (04:15)
[2019-05-31] MEDS ORDERED: POTASSIUM CHLORIDE 10 MEQ CAPSULE.ER PO ONE (04:16)
[2019-05-31 04:20] LABS: URINE AMPHETAMINES SCREEN NEGATIVE; URINE BARBITURATES SCREEN NEGATIVE; URINE BENZODIAZEPINES SCREEN NEGATIVE; URINE COCAINE SCREEN NEGATIVE; URINE MARIJUANA (THC) SCREEN NEGATIVE; URINE METHADONE SCREEN NEGATIVE; URINE PHENCYCLIDINE SCREEN NEGATIVE
[2019-05-31] MEDS ORDERED: ACETAMINOPHEN 325 MG TABLET PO ONE (04:37)
--- NOTE | 2019-05-31 05:31 | RADIOLOGY REPORT (SQ) ---
EXAM: CT head without IV contrast CLINICAL DATA: 69-year-old female with altered mental status TECHNICAL DATA: Multiple axial CT images of the brain were performed followed by sagittal and coronal reconstructed images. The CT study is performed according to ALARA (as low as reasonably achievable) or ALARA/IMAGE GENTLY, with automatic adjustment of mA and/or kV according to patient size. Performed on: 05/31/2019 at 4:55 AM Comparisons: Head CT performed on 06/22/2017. FINDINGS: There is no evidence of mass, acute mass effect or midline shift. There are no acute extra-axial fluid collections. There is no evidence of acute intracranial hemorrhage. The cerebral sulci and ventricles are prominent consistent with mild cerebral volume loss. There are scattered areas of decreased attenuation within the subcortical and periventricular white matter most likely due to mild chronic microangiopathy. There is no significant mucosal thickening of the paranasal sinuses. The mastoid air cells are clear. The orbital contents are grossly unremarkable. No acute osseous abnormalities are identified. No focal soft tissue abnormalities are identified. IMPRESSION: 1. There is no evidence of acute intracranial pathology. 2. Mild cerebral atrophy with findings compatible with mild chronic microangiopathy. Findings are similar when compared to the prior study.
[2019-05-31 11:42] LABS: ANION GAP 11 (5-19); BLOOD UREA NITROGEN 15 mg/dL (7-20); CALCIUM 8.8 mg/dL (8.4-10.2); CARBON DIOXIDE 26 mmol/L (22-30); CHLORIDE 99 mmol/L (98-107); GLUCOSE 107 mg/dL (75-110); POTASSIUM 3.5 mmol/L (3.6-5.0)
[2019-05-31] MEDS ORDERED: DIVALPROEX SODIUM 250 MG TABLET.DR PO SCH (13:00)
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
[2019-05-31] MEDS: DIVALPROEX SODIUM 250 MG TABLET.DR PO SCH ×2 (16:08→22:26)
[2019-05-31] MEDS ORDERED: ANASTROZOLE 1 MG TABLET PO SCH (18:30)
[2019-05-31] MEDS ORDERED: DILTIAZEM HCL 240 MG CAPSULE.CR PO SCH (18:30)
[2019-05-31] MEDS ORDERED: HYDRALAZINE HCL 25 MG TABLET PO SCH (18:30)
[2019-05-31] MEDS ORDERED: LISINOPRIL 10 MG TABLET PO SCH (18:30)
[2019-05-31] MEDS ORDERED: CLOPIDOGREL BISULFATE 75 MG TABLET PO SCH (18:30)
--- NOTE | 2019-05-31 18:57 | EKG REPORT ---
SEVERITY:- ABNORMAL ECG - ATRIAL-VENTRICULAR DUAL-PACED RHYTHM : Confirmed by: Sada Baig 31-May-2019 18:56:46
[2019-05-31] MEDS ORDERED: LEVOTHYROXINE SODIUM 0.075 MG TABLET PO SCH (19:00)
[2019-05-31] MEDS ORDERED: CLOPIDOGREL BISULFATE 75 MG TABLET PO ONE (19:30)
[2019-05-31] MEDS ORDERED: DILTIAZEM HCL 240 MG CAPSULE.CR PO ONE (19:31)
[2019-05-31] MEDS ORDERED: HYDRALAZINE HCL 25 MG TABLET PO ONE (19:32)
[2019-05-31] MEDS ORDERED: ANASTROZOLE 1 MG TABLET PO ONE (19:33)
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
[2019-05-31] MEDS: ATORVASTATIN CALCIUM 40 MG TABLET PO SCH (22:26)
[2019-06-01] MEDS: LEVOTHYROXINE SODIUM 0.075 MG TABLET PO SCH (06:02)
[2019-06-01] MEDS: DIVALPROEX SODIUM 250 MG TABLET.DR PO SCH ×2 (10:00→21:12)
[2019-06-01] MEDS: HYDRALAZINE HCL 25 MG TABLET PO SCH ×2 (10:00→18:43)
[2019-06-01] MEDS: ANASTROZOLE 1 MG TABLET PO SCH (10:00)
[2019-06-01] MEDS: DILTIAZEM HCL 240 MG CAPSULE.CR PO SCH (10:00)
[2019-06-01] MEDS: LISINOPRIL 10 MG TABLET PO SCH (10:00)
[2019-06-01] MEDS: CLOPIDOGREL BISULFATE 75 MG TABLET PO SCH (10:06)
--- NOTE | 2019-06-01 10:29 | ER Document Report ---
Doctor's Note Notes: 06/01/19 10:27 I have evaluated this pt. this am and she has no c/o at this time. She feels all of her needs are being met and her physical exam is normal. She is awaiting disposition per mental health.
[2019-06-01] MEDS ORDERED: DIVALPROEX SODIUM 250 MG TAB.SR.24H PO ONE (11:42)
[2019-06-01] MEDS ORDERED: RISPERIDONE 0.25 MG TABLET PO ONE (11:42)
[2019-06-01] MEDS: DIVALPROEX SODIUM 500 MG TAB.SR.24H PO SCH ×2 (12:23→21:12)
[2019-06-01] MEDS ORDERED: DIVALPROEX SODIUM 250 MG TABLET.DR PO SCH (13:30)
[2019-06-01] MEDS ORDERED: TETRAHYDROZOLINE HCL 0.05% OPH SOLN 15 ML OU ONE (17:40)
[2019-06-01] MEDS: RISPERIDONE 0.25 MG TABLET PO SCH (21:13)
[2019-06-01] MEDS: ATORVASTATIN CALCIUM 40 MG TABLET PO SCH (21:13)
[2019-06-02] MEDS: LEVOTHYROXINE SODIUM 0.075 MG TABLET PO SCH (05:43)
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
[2019-06-02] MEDS: HYDRALAZINE HCL 25 MG TABLET PO SCH ×3 (08:39→21:41)
[2019-06-02] MEDS: LISINOPRIL 10 MG TABLET PO SCH (09:03)
[2019-06-02] MEDS: DILTIAZEM HCL 240 MG CAPSULE.CR PO SCH (09:04)
[2019-06-02] MEDS: DIVALPROEX SODIUM 500 MG TAB.SR.24H PO SCH ×2 (09:04→21:40)
[2019-06-02] MEDS: DIVALPROEX SODIUM 250 MG TABLET.DR PO SCH (09:04)
[2019-06-02] MEDS: CLOPIDOGREL BISULFATE 75 MG TABLET PO SCH (09:04)
[2019-06-02] MEDS: RISPERIDONE 0.25 MG TABLET PO SCH ×2 (09:05→21:40)
[2019-06-02] MEDS: ANASTROZOLE 1 MG TABLET PO SCH (09:06)
--- NOTE | 2019-06-02 10:28 | ER Document Report ---
Doctor's Note Notes: 06/02/19 10:25 Pt seen this am. She is without complaints at this time. BP is trending up. Will increase freq of hydralazine to tid. Mental Health feels she will benefit from being here for another day as she is frail and uses walker with some difficulty. We will continue with her medicines and other support here.
[2019-06-02] MEDS ORDERED: HYDRALAZINE HCL 25 MG TABLET PO SCH (14:00)
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
[2019-06-02] MEDS ORDERED: LORAZEPAM 1 MG TABLET PO ONE (16:16)
[2019-06-02] MEDS ORDERED: LORAZEPAM 1 MG TABLET PO PRN (16:23)
[2019-06-02] MEDS ORDERED: TRAZODONE HCL 50 MG TABLET PO SCH (21:00)
[2019-06-02] MEDS: ATORVASTATIN CALCIUM 40 MG TABLET PO SCH (21:40)
[2019-06-03] MEDS: LEVOTHYROXINE SODIUM 0.075 MG TABLET PO SCH (06:24)
[2019-06-03] MEDS: HYDRALAZINE HCL 25 MG TABLET PO SCH ×2 (06:24→14:18)
[2019-06-03] MEDS: DIVALPROEX SODIUM 500 MG TAB.SR.24H PO SCH (09:55)
[2019-06-03] MEDS: CLOPIDOGREL BISULFATE 75 MG TABLET PO SCH (09:56)
[2019-06-03] MEDS: LISINOPRIL 10 MG TABLET PO SCH (09:56)
[2019-06-03] MEDS: RISPERIDONE 0.25 MG TABLET PO SCH (09:56)
[2019-06-03] MEDS: DILTIAZEM HCL 240 MG CAPSULE.CR PO SCH (09:59)
--- NOTE | 2019-06-03 10:15 | ER Document Report ---
Doctor's Note Notes: 06/03/19 10:15 Rounds: Chart reviewed and patient reviewed. Patient looks well. She has not slept during her first couple of days here, but she says she slept well last night. Patient supposedly has a diagnosis of bipolar disorder and was here for a headache. CT scan showed neuro degenerative disease but no acute findings. There is also some commentary in the patient's chart about her having sexual relations and using cocaine, but does not mention that this morning. Drug screen is negative for cocaine. Vital signs are all normal. Patient appears to be medically stable for transfer or discharge. Jann Roland MD
[2019-06-03] MEDS: ANASTROZOLE 1 MG TABLET PO SCH (10:31)
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
[2019-06-03 15:36] VITALS: BP 136/61
== END 2019-06-03 16:10 | disposition home or self-care (01) ==
LOC: ER 03:16
DX: R51 Headache (principal); F14.23 Cocaine dependence with withdrawal; F31.9 Bipolar disorder, unspecified; R53.1 Weakness; J44.9 Chronic obstructive pulmonary disease, unspecified; I10 Essential (primary) hypertension; Z79.899 Other long term (current) drug therapy
CPT/HCPCS: 93005; 36415; 80307 ×4; 85025; 80053; 81001; 84484; 70450; 93010; A9270 ×32; J3490; J7120

== ENCOUNTER 2019-07-29 08:37 | Emergency (ER) | payer MEDICARE, OTHER ==
[2019-07-29 09:11] LABS: ABSOLUTE EOSINOPHILS # (AUTO) 0.2 10^3/uL (0.0-0.6); ABSOLUTE LYMPHOCYTES (AUTO) 1.9 10^3/uL (0.5-4.7); ABSOLUTE MONOCYTES (AUTO) 0.7 10^3/uL (0.1-1.4); ABSOLUTE NEUT (AUTO) 5.2 10^3/uL (1.7-8.2); BASOPHILS % (AUTO) 0.6 % (0-2); EOSINOPHILS % (AUTO) 2.5 % (0-6); HEMATOCRIT 37.2 % (36.0-47.0); HEMOGLOBIN 12.5 g/dL (12.0-15.5); LYMPHOCYTES % (AUTO) 23.7 % (13-45); MEAN CORPUSCULAR HEMOGLOBIN 32.5 pg (27.0-33.4); MEAN CORPUSCULAR HGB CONC 33.5 g/dL (32.0-36.0); MEAN CORPUSCULAR VOLUME 97 fl (80-97); MONOCYTES % (AUTO) 8.7 % (3-13); PLATELET COUNT 225 10^3/uL (150-450); RED BLOOD COUNT 3.84 10^6/uL (3.72-5.28); RED CELL DISTRIBUTION WIDTH 13.8 % (11.5-14.0); SEGMENTED NEUTROPHILS % (AUTO) 64.5 % (42-78); TOTAL CELLS COUNTED % (AUTO) 100 %; WHITE BLOOD COUNT 8.1 10^3/uL (4.0-10.5)
[2019-07-29 09:29] LABS: ALBUMIN 3.9 g/dL (3.5-5.0); ALKALINE PHOSPHATASE 83 U/L (38-126); ANION GAP 9 (5-19); ASPARTATE AMINO TRANSFERASE 31 U/L (14-36); BILIRUBIN,DIRECT 0.1 mg/dL (0.0-0.4); BILIRUBIN,TOTAL 0.4 mg/dL (0.2-1.3); BLOOD UREA NITROGEN 16 mg/dL (7-20); CALCIUM 9.4 mg/dL (8.4-10.2); CARBON DIOXIDE 28 mmol/L (22-30); CHLORIDE 107 mmol/L (98-107); GLUCOSE 88 mg/dL (75-110); POTASSIUM 3.1 mmol/L (3.6-5.0); TOTAL PROTEIN 6.7 g/dL (6.3-8.2)
[2019-07-29] MEDS ORDERED: NORMAL SALINE 1000 ML 1,000 ML IV ONE (10:31)
[2019-07-29 10:34] LABS: APPEARANCE,URINE CLEAR; BILIRUBIN,URINE NEGATIVE (NEGATIVE); COLOR,URINE STRAW; GLUCOSE, URINE NEGATIVE (NEGATIVE); KETONES,URINE NEGATIVE (NEGATIVE); LEUKOCYTE ESTERASE,URINE NEGATIVE (NEGATIVE); NITRITE,URINE NEGATIVE (NEGATIVE); PROTEIN,URINE NEGATIVE (NEGATIVE); URINE SPECIFIC GRAVITY 1.004; UROBILINOGEN,URINE NEGATIVE mg/dL (<2.0)
[2019-07-29] MEDS ORDERED: FENTANYL CITRATE INJ/PF 100 MCG/2 ML AMPUL IV PRN (10:37)
[2019-07-29] MEDS ORDERED: ONDANSETRON HCL INJ/PF 4 MG/2 ML SDV IV ONE (10:37)
--- NOTE | 2019-07-29 10:40 | ER Document Report ---
ED General - General Chief Complaint: Abdominal Pain Stated Complaint: RECTAL PAIN Time Seen by Provider: 07/29/19 10:23 Primary Care Provider: SANDEE HANCOCK FNP [Primary Care Provider] - Follow up as needed TRAVEL OUTSIDE OF THE U.S. IN LAST 30 DAYS: No - HPI Notes: 69-year-old female presents complaining of cramping right upper quadrant discomfort and intermittent rectal bleeding. Patient saw some dark blood with a bowel movement today. Nauseated without vomiting. She felt chilled earlier but did not take her temperature. Onset 24 hours ago. Duration persistent. Quality cramping. Location right upper quadrant abdomen. Radiation none. Precipitating factors not identified. Relieving factors none. Severity 5/10 intensity. Pertinent prior history: Patient believes she may have had diverticulosis in the past. She denies any history of major rectal bleeding. She is chronically taking Plavix. Patient has had a previous cholecystectomy and no other ab dominal surgery. - Related Data Allergies/Adverse Reactions: Penicillins Allergy (Mild, Verified 07/29/19 11:46) rash Home Medications: Atorvastatin. Clopidogril. Dilitiazem. Hydroxyane. Levothyroxine. Lisinopril. Myrbetria. neurontin. apiprazole. Pavix Past Medical History - General Information source: Patient Cannot obtain history due to: Other - Limited history poor historian. Noted to have a very flat affect and nursing staff indicates that the patient has a history of "behavioral health issues". - Social History Smoking Status: Unknown if Ever Smoked Frequency of alcohol use: None Drug Abuse: None Lives with: Family Family History: None, Malignancy Patient has suicidal ideation: No Patient has homicidal ideation: No - Past Medical History Cardiac Medical History: Reports: Hx Hypercholesterolemia, Hx Hypertension - MEDICATED Denies: Hx Congestive Heart Failure, Hx Heart Attack Pulmonary Medical History: Reports: Hx Asthma, Hx Bronchitis, Hx COPD, Hx Pneum onia Denies: Hx Tuberculosis Neurological Medical History: Denies: Hx Cerebrovascular Accident, Hx Seizures, Hx Parkinson's Disease Renal/ Medical History: Reports: Other - History of recurrent UTIs.. Denies: Hx End Stage Renal Disease, Hx Kidney Stones, Hx Peritoneal Dialysis Malignancy Medical History: Reports: Hx Breast Cancer GI Medical History: Reports: Hx Diverticulitis. Denies: Hx Gastroesophageal Reflux Disease, Hx Hepatitis, Hx Hiatal Hernia, Hx Ulcer Other: Previous cholecystectomy. Musculoskeletal Medical History: Reports Hx Arthritis Psychiatric Medical History: Reports: Hx Bipolar Disorder, Hx Depression Denies: Hx Schizophrenia Infectious Medical History: Denies: Hx Hepatitis Past Surgical History: Reports: Hx Abdominal Surgery - hernia repair, Hx Breast Surgery - cyst removed, Hx Cardiac Surgery - pacemaker(dual), Hx Cholecystectomy, Hx Herniorrhaphy, Hx Mastectomy - NO RESTRICTIONS, Hx Pacemaker. Denies: Hx Hysterectomy, Hx Open Heart Surgery - Immunizations Hx Diphtheria, Pertussis, Tetanus Vaccination: Yes Hx Pneumococcal Vaccination: 06/23/08 Review of Systems - Review of Systems Notes: Constitutional: Subjective fever. HENT: Negative for sore throat. Eyes: Negative for visual changes. Cardiovascular: Negative for chest pain. Respiratory: Negative for shortness of breath. Gastrointestinal: As per HPI. Genitourinary: Mild dysuria. Musculoskeletal: Negative for back pain. Skin: Negative for rash. Neurological: Negative for headaches, weakness or numbness. 10 point ROS negative except as marked above and in HPI. Physical Exam - Vital signs Vitals: Pulse Ox 97 07/29/19 09:14 Notes: GENERAL: Elderly female with a very blunted affect who appears anxious and moderately uncomfortable. SKIN: Good turgor no rashes. HEAD: Normocephalic atraumatic. EYES: PERRLA. Conjunctiva both eyes left greater than right. Patient says she uses drops for glaucoma. EARS: CANALS AND TMS CLEAR. NOSE: CLEAR. MOUTH: Moist mucosa. Good dentition. No stridor or edema. No drooling. THROAT: Clear. NECK: Supple. No masses or thyromegaly. No adenopathy. Carotids 2+ without bruits. No JVD. BACK: Symmetrical without tenderness. CHEST: Respirations unlabored. Breath sounds clear and symmetrical. HEART: Regular rhythm. No murmur gallop or rub. Pacemaker noted left anterior chest wall. ABDOMEN: Soft with moderate tenderness on palpation right upper quadrant. No masses, organomegaly or rebound. Bowel sounds normally active. No bruits. GENITALIA: Deferred. EXTREMITIES: 1+ edema both lower legs with scattered broken superficial varicosities. No calf tenderness. Cap refill less than 1.5 seconds. Dorsalis pedis and posterior tibial pulses 2+ and symmetrical. NEUROLOGICAL: GCS 15. Alert and oriented x3. Normal gait. Fluent speech. Cranial nerves II through XII intact. Sensorimotor and cerebellar normal. Normal tone. PSYCHIATRIC: Very flat affect. Course - Re-evaluation Re-evalutation: 07/29/19 10:48 It appears most likely that this patient has acute diverticulitis. She appears hemodynamically stable and afebrile at this time. We are going to keep her n.p.o. and start normal saline IV. We will give her some small doses of fentanyl and some Zofran for treatment of symptoms. Will obtain CT abdomen/pelvis with IV contrast. Will check stool guaiac and rectal temp. Labs pending at this time include CBC, comprehensive metabolic profile and cath urinalysis. 07/29/19 12:42 Patient reports feeling better at this time. Clinical findings are suggestive of acute diverticulitis. She does not have a fever nor elevation of her white count. Her potassium is a little low. I am giving her some IV fluids with potassium here and I think she will be able to go home on oral antibiotic for outpatient follow-up with primary care provider. 07/29/19 15:28 Patient is completed her IV fluids and potassium feels much better. She is requesting discharge which I currently feel to be appropriate. - Vital Signs Vital signs: Temp Pulse Resp BP Pulse Ox 98.4 F 69 18 147/67 H 98 07/29/19 10:41 07/29/19 09:24 07/29/19 09:24 07/29/19 09:24 07/29/19 09:24 - Laboratory Result Diagrams: 07/29/19 08:58 07/29/19 08:58 Laboratory results interpreted by me: 07/29/19 08:58 Potassium 3.1 L Creatinine 1.57 H Est GFR ( Amer) 39 L Est GFR (MDRD) Non-Af 32 L Discharge - Discharge Clinical Impression: Acute diverticulitis, Hypokalemia Condition: Stable Disposition: HOME, SELF-CARE Instructions: Diverticulitis (OM) Prescriptions: Ciprofloxacin HCl [Cipro 500 mg Tablet] 500 mg PO BID #20 tablet Metronidazole [Flagyl 500 mg Tablet] 500 mg PO Q6H #40 tablet Potassium Chloride [Potassium Chloride 20 Meq Packet] 20 meq PO DAILY 7 Days #7 packet Ondansetron [Zofran Odt 4 mg Tablet] 1 - 2 tab PO Q4H PRN #15 tab.rapdis PRN Reason: For Nausea/Vomiting Referrals: SANDEE HANCOCK, PER [facility] PHYSICAL THERAPIST ASSISTANT [Primary Care Provider] - Follow up as needed
[2019-07-29 11:27] LABS: URINE AMPHETAMINES SCREEN NEGATIVE; URINE BARBITURATES SCREEN NEGATIVE; URINE BENZODIAZEPINES SCREEN NEGATIVE; URINE COCAINE SCREEN NEGATIVE; URINE MARIJUANA (THC) SCREEN NEGATIVE; URINE METHADONE SCREEN NEGATIVE; URINE PHENCYCLIDINE SCREEN NEGATIVE
--- NOTE | 2019-07-29 11:48 | RADIOLOGY REPORT (SQ) ---
EXAM DESCRIPTION: CT ABD/PELVIS WITH IV ONLY COMPLETED DATE/TIME: 07/29/2019 11:32 am REASON FOR STUDY: RUQ pain and rectal bleeding COMPARISON: None. TECHNIQUE: CT scan of the abdomen and pelvis performed using helical scanning technique with dynamic intravenous contrast injection. No oral contrast. Images reviewed with lung, soft tissue, and bone windows. Reconstructed coronal and sagittal MPR images reviewed. Delayed images for evaluation of the urinary system also acquired. All images stored on PACS. All CT scanners at this facility use dose modulation, iterative reconstruction, and/or weight based d osing when appropriate to reduce radiation dose to as low as reasonably achievable (ALARA). [facility]: Dose Right [facility]: CareDose [facility]: Dose Right [facility]: Teradose 4D [facility]: [id number] CONTRAST TYPE AND DOSE: contrast/concentration: Isovue 300.00 mg/ml; Total Contrast Delivered: 100.0 ml; Total Saline Delivered: 59.2 ml RENAL FUNCTION: BUN 16, creatinine 1.57 RADIATION DOSE: CT Rad equipment meets quality standard of care and radiation dose reduction techniq ues were employed. CTDIvol: 20.0 - 20.3 mGy. DLP: 3166 mGy-cm.. LIMITATIONS: None. FINDINGS: LOWER CHEST: No significant findings. No nodules or infiltrates. LIVER: Normal size. No masses. No dilated ducts. SPLEEN: Normal size. No focal lesions. PANCREAS: No masses. No significant calcifications. No adjacent inflammation or peripancreatic fluid collections. Pancreatic duct not dilated. GALLBLADDER: Surgically absent. ADRENAL GLANDS: No significant masses or asymmetry. RIGHT KIDNEY AND URETER: No solid masses. Multiple small right renal cysts. No significant calcifi cations. No hydronephrosis or hydroureter. LEFT KIDNEY AND URETER: No solid masses. Multiple small left renal cysts. No significant calcifica tions. No hydronephrosis or hydroureter. AORTA AND VESSELS: No aneurysm. No dissection. Renal arteries, SMA, celiac without stenosis. RETROPERITONEUM: No retroperitoneal adenopathy, hemorrhage or masses. BOWEL AND PERITONEAL CAVITY: No masses or inflammatory changes. No free fluid or peritoneal masses. APPENDIX: Normal. PELVIS: No mass. No free fluid. Normal bladder. ABDOMINAL WALL: No masses. No hernias. BONES: No significant or acute findings. OTHER: No other significant finding. IMPRESSION: Multiple small bilateral renal cysts. No acute findings in the abdomen or pelvis. Nothing to explain the patient's right upper quadrant pa in. Prior cholecystectomy. TECHNICAL DOCUMENTATION: JOB ID: [id number] Quality ID # [id number]: Final reports with documentation of one or more dose reduction techniques (e.g., Au tomated exposure control, adjustment of the mA and/or kV according to patient size, use of iterative reconstruction technique) 2010 [employer]- All Rights Reserved Reading location - IP/workstation name: [email or web address]
[2019-07-29] MEDS ORDERED: POTASSI CL 20 MEQ/50 ML RIDER 20 MEQ/50 ML RTUPB IV ONE (12:39)
[2019-07-29] MEDS ORDERED: POTASSIUM CHLORIDE 20 MEQ PACKET PO ONE (12:43)
[2019-07-29] MEDS ORDERED: POLYVINYL ALCOHOL 1.4% OPH SOLN 15 ML OU ONE (13:08)
[2019-07-29 16:10] VITALS: BP 150/68
== END 2019-07-29 16:04 | disposition home or self-care (01) ==
LOC: ER 08:37
DX: E87.6 Hypokalemia (principal); K57.92 Diverticulitis of intestine, part unspecified, without perforation or abscess without bleeding; R10.11 Right upper quadrant pain; K62.89 Other specified diseases of anus and rectum; R50.9 Fever, unspecified; R11.0 Nausea; E78.00 Pure hypercholesterolemia, unspecified; I10 Essential (primary) hypertension; J44.9 Chronic obstructive pulmonary disease, unspecified; Z88.0 Allergy status to penicillin; Z87.440 Personal history of urinary (tract) infections; Z95.0 Presence of cardiac pacemaker
CPT/HCPCS: 99284; 96361; 51701; 96375; 96365; 96366; 86900; 86901; 36415; 86850; 83690; 83735; 85025; 80053; 81001; 80307; 74177; A9270; J3010; J2405; J3480; J7030; J3490

== ENCOUNTER 2019-08-03 05:51 | Emergency (ER) | payer MEDICARE, OTHER ==
[2019-08-03 06:28] VITALS: BP 102/56
[2019-08-03 07:07] LABS: ABSOLUTE BASOPHILS # (AUTO) 0.1 10^3/uL (0.0-0.2); ABSOLUTE EOSINOPHILS # (AUTO) 0.2 10^3/uL (0.0-0.6); ABSOLUTE LYMPHOCYTES (AUTO) 1.6 10^3/uL (0.5-4.7); ABSOLUTE MONOCYTES (AUTO) 0.8 10^3/uL (0.1-1.4); ABSOLUTE NEUT (AUTO) 5.5 10^3/uL (1.7-8.2); BASOPHILS % (AUTO) 0.6 % (0-2); EOSINOPHILS % (AUTO) 2.8 % (0-6); HEMATOCRIT 35.5 % (36.0-47.0); HEMOGLOBIN 11.8 g/dL (12.0-15.5); MEAN CORPUSCULAR HEMOGLOBIN 32.3 pg (27.0-33.4); MEAN CORPUSCULAR HGB CONC 33.3 g/dL (32.0-36.0); MEAN CORPUSCULAR VOLUME 97 fl (80-97); PLATELET COUNT 234 10^3/uL (150-450); RED BLOOD COUNT 3.65 10^6/uL (3.72-5.28); SEGMENTED NEUTROPHILS % (AUTO) 66.6 % (42-78); TOTAL CELLS COUNTED % (AUTO) 100 %; WHITE BLOOD COUNT 8.2 10^3/uL (4.0-10.5)
--- NOTE | 2019-08-03 07:08 | EKG REPORT ---
SEVERITY:- ABNORMAL ECG - VENTRICULAR-PACED RHYTHM : Confirmed by: Sada Baig 03-Aug-2019 07:06:40
[2019-08-03 07:28] LABS: ALBUMIN 3.4 g/dL (3.5-5.0); ALKALINE PHOSPHATASE 60 U/L (38-126); ANION GAP 8 (5-19); ASPARTATE AMINO TRANSFERASE 26 U/L (14-36); BILIRUBIN,DIRECT 0.1 mg/dL (0.0-0.4); BILIRUBIN,TOTAL 0.3 mg/dL (0.2-1.3); BLOOD UREA NITROGEN 19 mg/dL (7-20); CARBON DIOXIDE 26 mmol/L (22-30); CHLORIDE 106 mmol/L (98-107); CREATINE KINASE 97 U/L (30-135); GLUCOSE 92 mg/dL (75-110); TOTAL PROTEIN 6.1 g/dL (6.3-8.2)
[2019-08-03 07:44] LABS: FREE T3 3.09 pg/mL (2.77-5.27); FREE T4 (FREE THYROXINE) 1.23 ng/dL (0.78-2.19)
--- NOTE | 2019-08-03 07:53 | ER Document Report ---
Entered by LARRY LOVE SCRIBE 08/03/19 0654 Acting as scribe for:JUANCHO BELTRAN MD ED General - General Chief Complaint: Other Stated Complaint: ALTERED MENTAL STATUS Time Seen by Provider: 08/03/19 06:24 Primary Care Provider: SANDEE HANCOCK FNP [Primary Care Provider] - Follow up as needed Mode of Arrival: Ambulatory Information source: Patient, [facility] Records Notes: This 69-year-old female patient brought the emergency room by a taxicab that she had called this morning to take her to an urgent care. She did arrive here before 6 AM, there would be no urgent care is open for at least another 2 or more hours. Cabdriver was concerned about her mental status and confusion. At this time the patient complains of pain in her right upper abdomen and chest region. She first states that this is been going on for a few weeks and that she was seen here over 2 weeks ago for this problem. She is actually seen here 5 days ago. She had a normal laboratory work-up except for a potassium 3.1, and a negative IV contrasted CT scan of the abdomen pelvis. She was discharged with a diagnosis of diverticulitis and placed on Cipro and Flagyl. She is concerned that her pain has not improved. There is no history of fever, no nausea vomiting or diarrhea. TRAVEL OUTSIDE OF THE [place] IN LAST 30 DAYS: No - Related Data Allergies/Adverse Reactions: Penicillins Allergy (Mild, Verified 07/29/19 11:46) rash Past Medical History - General Information source: Patient, [facility] Records - Social History Smoking Status: Former Smoker - Patient reports that she smoked as a teenager. Cigarette use (# per day): No Chew tobacco use (# tins/day): No Smoking Education Provided: No Frequency of alcohol use: None Drug Abuse: None Lives with: Alone - Patient states she lives alone, however has a boyfriend who stays there sometimes. Family History: None, Malignancy Patient has suicidal ideation: No Patient has homicidal ideation: No - Past Medical History Cardiac Medical History: Reports: Hx Hypercholesterolemia, Hx Hypertension Pulmonary Medical History: Reports: Hx Asthma, Hx Bronchitis, Hx COPD, Hx Pneumonia Endocrine Medical History: Reports: Hx Hypothyroidism Malignancy Medical History: Reports: Hx Breast Cancer GI Medical History: Reports: Hx Diverticulitis - Not certain if she has ever had diverticulitis, or just diverticulosis. Musculoskeletal Medical History: Reports Hx Arthritis Psychiatric Medical History: Reports: Hx Bipolar Disorder, Hx Depression Infectious Medical History: Denies: None, Hx C-Diff, Hx Hepatitis, Hx HIV, Hx MRSA, Hx VRE, Other Past Surgical History: Reports: Hx Breast Surgery - cyst removed, Hx Cholecystectomy, Hx Herniorrhaphy, Hx Mastectomy - NO RESTRICTIONS, Hx Pacemaker - Immunizations Hx Diphtheria, Pertussis, Tetanus Vaccination: Yes Hx Pneumococcal Vaccination: 06/23/08 Review of Systems - Review of Systems Constitutional: No symptoms reported EENT: No symptoms reported Cardiovascular: See HPI Respiratory: No symptoms reported Gastrointestinal: See HPI Genitourinary: No symptoms reported Female Genitourinary: Post menopausal Musculoskeletal: Back pain, Joint pain, Leg swelling, Ankle swelling Skin: No symptoms reported Hematologic/Lymphatic: No symptoms reported Neurological/Psychological: Confusion, Depression Physical Exam - Vital signs Vitals: Temp Pulse Resp BP Pulse Ox 97.8 F 75 23 H 102/48 L 93 08/03/19 06:02 08/03/19 06:02 08/03/19 06:02 08/03/19 06:02 08/03/19 06:02 - General General appearance: Alert, Other - Disheveled In distress: None - HEENT Head: Normocephalic, Atraumatic Eyes: Normal Pupils: PERRL Neck: Normal - Respiratory Respiratory status: No respiratory distress Breath sounds: Normal Chest palpation: Tender - There is tenderness to palpate the right anterior lateral inferior chest wall just above the rib margin. - Cardiovascular Rhythm: Regular - Meryl Heart sounds: Normal auscultation Murmur: No - Abdominal Inspection: Normal Bowel sounds: Normal Tenderness: Nontender - There is no tenderness to palpate the right upper quadrant up underneath the rib margin. - Back Back: Normal - Extremities General upper extremity: Normal inspection General lower extremity: Edema - Neurological Neuro grossly intact: Yes - Psychological Associated symptoms: Flat affect, Other - Patient does seem to be a little confused and that she is wanting to go to an urgent care at this time, she states it is an urgent care connected to this hospital. There is no urgent care connected to this hospital. And none of the urgent cares would be opening for at least another hour or more. - Skin Skin Temperature: Warm Skin Moisture: Dry Skin Color: Normal Course - Re-evaluation Re-evalutation: 08/03/19 07:54 I was looking to check on the patient's chemistries, and found her name has been removed from the active patient list. On further inquisition, I found that the patient had left, but I was not informed of this. I did notice that the patient's hypokalemia from 5 days ago had resolved itself. Her lab work is not concerning for infectious process. She is taking Cipro and Flagyl that was prescribed 5 days ago for a diagnosis of diverticulitis. - Vital Signs Vital signs: Temp Pulse Resp BP Pulse Ox 97.8 F 75 19 102/56 L 93 08/03/19 06:02 08/03/19 06:02 08/03/19 06:25 08/03/19 06:25 08/03/19 06:02 - Laboratory Result Diagrams: 08/03/19 06:17 08/03/19 06:17 Laboratory results interpreted by me: 08/03/19 08/03/19 06:17 06:17 RBC 3.65 L Hgb 11.8 L Hct 35.5 L Creatinine 1.71 H Est GFR ( Amer) 36 L Est GFR (MDRD) Non-Af 29 L Total Protein 6.1 L Albumin 3.4 L - EKG Interpretation by Me EKG shows normal: Shiner, Intervals, QRS Complexes, ST-T Waves Rate: Normal - 80 Rhythm: Other - Ventricular paced rhythm When compared to previous EKG there are: No significant change Discharge - Discharge Clinical Impression: Chest wall pain Condition: Good Disposition: AGAINST MEDICAL ADVICE Referrals: SANDEE HANCOCK FNP [Primary Care Provider] - Follow up as needed Scribe Attestation: 08/03/19 07:54 I personally performed the services described in the documentation, reviewed and edited the documentation which was dictated to the scribe in my presence, and it accurately records my words and actions. I personally performed the services described in the documentation, reviewed and edited the documentation which was dictated to the scribe in my presence, and it accurately records my words and actions.
== END 2019-08-03 07:45 | disposition left against medical advice (07) ==
LOC: ER 05:51
DX: R07.89 Other chest pain (principal); R41.82 Altered mental status, unspecified; R10.11 Right upper quadrant pain; Z87.891 Personal history of nicotine dependence; I10 Essential (primary) hypertension; J44.9 Chronic obstructive pulmonary disease, unspecified; Z85.3 Personal history of malignant neoplasm of breast
CPT/HCPCS: 36415; 80053; 82550; 83735; 84439; 84481; 85025; 93005; 93010; 99285

== ENCOUNTER 2019-08-06 15:00 | Emergency (ER) | payer MEDICARE, OTHER ==
--- NOTE | 2019-08-06 15:39 | ER Document Report ---
ED Medical Screen (RME) - General Chief Complaint: Psych Problem Stated Complaint: PSYCH EVAL Time Seen by Provider: 08/06/19 15:31 Primary Care Provider: SANDEE HANCOCK FNP [Primary Care Provider] - Follow up as needed Notes: 69-year-old female with coronary artery disease status post PPM, PTSD, psychosis presents to the emergency department on IVC papers. Per the IVC report she is not eating because she believes she is being poisoned and she has not been sleeping. She states that someone is talking to her in an earbud but she is not wearing one. She has auditory hallucinations telling her to leave home and she believes people are breaking into her house. She recently has been wandering the streets with no shoes and no jacket in cold temperatures. Law enforcement picked her up at her home and caregiver was present. Patient denies any acute complaints at this time. Of note, patient states that her pacemaker battery is set to in approximately 6 months. Exam: Well-appearing no acute distress, lungs are clear to auscultation all sanchez, regular cardiac rate and rhythm. TRAVEL OUTSIDE OF THE [place] IN LAST 30 DAYS: No - Related Data Allergies/Adverse Reactions: Penicillins Allergy (Mild, Verified 08/06/19 15:32) rash Past Medical History - Past Medical History Cardiac Medical History: Reports: Hx Hypercholesterolemia, Hx Hypertension Denies: Hx Congestive Heart Failure, Hx Heart Attack Pulmonary Medical History: Reports: Hx Asthma, Hx Bronchitis, Hx COPD, Hx Pneumonia Denies: Hx Tuberculosis Neurological Medical History: Denies: Hx Cerebrovascular Accident, Hx Seizures, Hx Parkinson's Disease Endocrine Medical History: Reports: Hx Hypothyroidism Renal/ Medical History: Denies: Hx End Stage Renal Disease, Hx Kidney Stones, Hx Peritoneal Dialysis Malignancy Medical History: Reports: Hx Breast Cancer GI Medical History: Reports: Hx Diverticulitis - Not certain if she has ever had diverticulitis, or just diverticulosis.. Denies: Hx Gastroesophageal Reflux Disease, Hx Hepatitis, Hx Hiatal Hernia, Hx Ulcer Musculoskeltal Medical History: Reports Hx Arthritis Psychiatric Medical History: Reports: Hx Bipolar Disorder, Hx Depression Denies: Hx Schizophrenia Infectious Medical History: Denies: Hx C-Diff, Hx Hepatitis, Hx HIV, Hx MRSA, Hx VRE Past Surgical History: Reports: Hx Abdominal Surgery - hernia repair, Hx Breast Surgery - cyst removed, Hx Cardiac Surgery - pacemaker(dual), Hx Cholecystectomy, Hx Herniorrhaphy, Hx Mastectomy - NO RESTRICTIONS, Hx Pacemaker. Denies: Hx Hysterectomy, Hx Open Heart Surgery - Immunizations Hx Diphtheria, Pertussis, Tetanus Vaccination: Yes Physical Exam - Vital signs Vitals: Temp Pulse Resp BP Pulse Ox 98 F 80 16 110/59 L 98 08/06/19 15:07 08/06/19 15:07 08/06/19 15:07 08/06/19 15:07 08/06/19 15:07 Course - Vital Signs Vital signs: Temp Pulse Resp BP Pulse Ox 98 F 80 16 110/59 L 98 08/06/19 15:07 08/06/19 15:07 08/06/19 15:07 08/06/19 15:07 08/06/19 15:07 Doctor's Discharge - Discharge Referrals: SANDEE HANCOCK FNP [Primary Care Provider] - Follow up as needed
[2019-08-06 16:38] LABS: APPEARANCE,URINE SLIGHTLY-CLOUDY; BILIRUBIN,URINE NEGATIVE (NEGATIVE); COLOR,URINE YELLOW; GLUCOSE, URINE NEGATIVE (NEGATIVE); KETONES,URINE NEGATIVE (NEGATIVE); LEUKOCYTE ESTERASE,URINE MODERATE (NEGATIVE); NITRITE,URINE NEGATIVE (NEGATIVE); PROTEIN,URINE NEGATIVE (NEGATIVE); URINE SPECIFIC GRAVITY 1.006; UROBILINOGEN,URINE NEGATIVE mg/dL (<2.0)
[2019-08-06 16:39] LABS: ABSOLUTE EOSINOPHILS # (AUTO) 0.1 10^3/uL (0.0-0.6); ABSOLUTE MONOCYTES (AUTO) 0.8 10^3/uL (0.1-1.4); ABSOLUTE NEUT (AUTO) 4.7 10^3/uL (1.7-8.2); BASOPHILS % (AUTO) 0.3 % (0-2); EOSINOPHILS % (AUTO) 1.6 % (0-6); HEMATOCRIT 36.4 % (36.0-47.0); HEMOGLOBIN 12.1 g/dL (12.0-15.5); MEAN CORPUSCULAR HEMOGLOBIN 32.5 pg (27.0-33.4); MEAN CORPUSCULAR HGB CONC 33.4 g/dL (32.0-36.0); MEAN CORPUSCULAR VOLUME 97 fl (80-97); MONOCYTES % (AUTO) 10.2 % (3-13); PLATELET COUNT 219 10^3/uL (150-450); RED BLOOD COUNT 3.73 10^6/uL (3.72-5.28); RED CELL DISTRIBUTION WIDTH 14.1 % (11.5-14.0); SEGMENTED NEUTROPHILS % (AUTO) 61.9 % (42-78); TOTAL CELLS COUNTED % (AUTO) 100 %; WHITE BLOOD COUNT 7.6 10^3/uL (4.0-10.5)
[2019-08-06 16:53] LABS: URINE AMPHETAMINES SCREEN NEGATIVE; URINE BARBITURATES SCREEN NEGATIVE; URINE BENZODIAZEPINES SCREEN NEGATIVE; URINE COCAINE SCREEN NEGATIVE; URINE MARIJUANA (THC) SCREEN NEGATIVE; URINE METHADONE SCREEN NEGATIVE; URINE PHENCYCLIDINE SCREEN NEGATIVE
[2019-08-06 16:56] LABS: ALBUMIN 3.9 g/dL (3.5-5.0); ALKALINE PHOSPHATASE 68 U/L (38-126); ANION GAP 11 (5-19); ASPARTATE AMINO TRANSFERASE 29 U/L (14-36); BILIRUBIN,DIRECT 0.1 mg/dL (0.0-0.4); BILIRUBIN,TOTAL 0.6 mg/dL (0.2-1.3); BLOOD UREA NITROGEN 26 mg/dL (7-20); CALCIUM 9.4 mg/dL (8.4-10.2); CARBON DIOXIDE 28 mmol/L (22-30); CHLORIDE 103 mmol/L (98-107); GLUCOSE 99 mg/dL (75-110); TOTAL PROTEIN 6.7 g/dL (6.3-8.2)
[2019-08-06 16:59] LABS: ACETAMINOPHEN < 10 ug/mL (10-30); ALCOHOL < 10 mg/dL (NONE DETECTED); SALICYLATE < 1.0 mg/dL (2.0-20.0)
[2019-08-06] MEDS ORDERED: NORMAL SALINE 1000 ML 1,000 ML IV ONE (17:04)
--- NOTE | 2019-08-06 17:15 | ER Document Report ---
ED Psych Disorder / Suicide - General Chief Complaint: Psych Problem Stated Complaint: PSYCH EVAL Time Seen by Provider: 08/06/19 15:31 Primary Care Provider: SANDEE HANCOCK FNP [Primary Care Provider] - Follow up as needed Mode of Arrival: Medic Information source: Patient TRAVEL OUTSIDE OF THE [place] IN LAST 30 DAYS: No - HPI Notes: 69-year-old female with coronary artery disease status post PPM, PTSD, psychosis presents to the emergency department on IVC papers. Per the IVC report she is not eating because she believes she is being poisoned and she has not been sleeping. She states that someone is talking to her in an earbud but she is not wearing one. She has auditory hallucinations telling her to leave home and she believes people are breaking into her house. She recently has been wandering the streets with no shoes and no jacket in cold temperatures. Law enforcement picked her up at her home and caregiver was present. Patient denies any acute complaints at this time. Of note, patient states that her pacemaker battery is set to in approximately 6 months. Denies fevers, chills, chest pain,pa lpitations, shortness of breath, dyspnea, nausea, vomiting, diarrhea, abdominal pain, hematuria, LH, dizziness, syncope, headaches, wheezing, ST, URI, neck pain, weakness, bowel or bladder dysfunction, saddle anesthesia, numbness or tingling in bilateral upper or lower extremities equally, muscle paralysis, weakness in bilateral upper or lower extremities equally or rash. - Related Data Allergies/Adverse Reactions: Penicillins Allergy (Mild, Verified 08/06/19 15:32) rash Past Medical History - General Information source: Patient, Outside Facility Records - Social History Smoking Status: Never Smoker Chew tobacco use (# tins/day): No Drug Abuse: None Family History: None, Malignancy Patient has suicidal ideation: No Patient has homicidal ideation: No - Past Medical History Cardiac Medical History: Reports: Hx Hypercholesterolemia, Hx Hypertension Denies: Hx Congestive Heart Failure, Hx Heart Attack Pulmonary Medical History: Reports: Hx Asthma, Hx Bronchitis, Hx COPD, Hx Pneumonia Denies: Hx Tuberculosis Neurological Medical History: Denies: Hx Cerebrovascular Accident, Hx Seizures, Hx Parkinson's Disease Endocrine Medical History: Reports: Hx Hypothyroidism Renal/ Medical History: Denies: Hx End Stage Renal Disease, Hx Kidney Stones, Hx Peritoneal Dialysis Malignancy Medical History: Reports: Hx Breast Cancer GI Medical History: Reports: Hx Diverticulitis - Not certain if she has ever had diverticulitis, or just diverticulosis.. Denies: Hx Gastroesophageal Reflux Disease, Hx Hepatitis, Hx Hiatal Hernia, Hx Ulcer Musculoskeletal Medical History: Reports Hx Arthritis Psychiatric Medical History: Reports: Hx Bipolar Disorder, Hx Depression Denies: Hx Schizophrenia Infectious Medical History: Denies: Hx C-Diff, Hx Hepatitis, Hx HIV, Hx MRSA, Hx VRE Past Surgical History: Reports: Hx Abdominal Surgery - hernia repair, Hx Breast Surgery - cyst removed, Hx Cardiac Surgery - pacemaker(dual), Hx Cholecy stectomy, Hx Herniorrhaphy, Hx Mastectomy - NO RESTRICTIONS, Hx Pacemaker. Denies: Hx Hysterectomy, Hx Open Heart Surgery - Immunizations Hx Diphtheria, Pertussis, Tetanus Vaccination: Yes Hx Pneumococcal Vaccination: 06/23/08 Review of Systems - Review of Systems Constitutional: No symptoms reported EENT: No symptoms reported Cardiovascular: No symptoms reported Respiratory: No symptoms reported Gastrointestinal: No symptoms reported Genitourinary: No symptoms reported Female Genitourinary: No symptoms reported Musculoskeletal: No symptoms reported Skin: See HPI Hematologic/Lymphatic: No symptoms reported Neurological/Psychological: No symptoms reported Physical Exam - Vital signs Vitals: Temp Pulse Resp BP Pulse Ox 98 F 80 16 110/59 L 98 08/06/19 15:07 08/06/19 15:07 08/06/19 15:07 08/06/19 15:07 08/06/19 15:07 - Notes Notes: PHYSICAL EXAMINATION: reviewed vital signs by RN GENERAL: Well-appearing, well-nourished and in no acute distress. HEAD: Atraumatic, normocephalic. EYES: Pupils equal round and reactive to light, extraocular movements intact, conjunctiva are normal. ENT: Nares patent, oropharynx clear without exudates. Moist mucous membranes. NECK: Normal range of motion, supple without lymphadenopathy LUNGS: Breath sounds clear to auscultation bilaterally and equal. No wheezes rales or rhonchi. HEART: Regular rate and rhythm without murmurs ABDOMEN: Soft, nontender, nondistended abdomen. No guarding, no rebound. No masses appreciated. Female : deferred Musculoskeletal: Normal range of motion, no pitting or edema. No cyanosis. NEUROLOGICAL: Cranial nerves grossly intact. Normal speech, normal gait. Normal sensory, motor exams PSYCH: anxious SKIN: Warm, Dry, normal turgor, no rashes or lesions noted. Course - Re-evaluation Re-evalutation: 08/06/19 18:40 Afebrile vital stable and in no distress. CBC negative for leukocytosis or anemia, CMP negative for hepatic dysfunction, creatinine 2.47, BUN 26. Waiting for troponin, BNP and chest x-ray. Patient is in no distress. Patient states she has been drinking because she was concerned that all of the water around her was "poisoned". Mental health has been a bedside, discussed with him that we need to address the acute kidney injury prior to adding any medications. BNP 1200, IVP Lasix given potassium within normal range. Serum troponin 0 0.037, when trending this is seems to be in patient's baseline, patient is not complaining of any chest pain, will repeat troponin after giving fluids, suspect this is related to elevated creatinine. Disposition given to JAYLENE Napier at 2013 - Vital Signs Vital signs: Temp Pulse Resp BP Pulse Ox 98 F 80 16 110/59 L 98 08/06/19 15:07 08/06/19 15:07 08/06/19 15:07 08/06/19 15:07 08/06/19 15:07 - Laboratory Result Diagrams: 08/06/19 15:50 08/06/19 15:50 Laboratory results interpreted by me: 08/06/19 08/06/19 08/06/19 15:50 15:50 15:50 RDW 14.1 H BUN 26 H Creatinine 2.47 H Est GFR ( Amer) 23 L Est GFR (MDRD) Non-Af 19 L NT-Pro-B Natriuret Pep Ur Leukocyte Esterase MODERATE H Salicylates < 1.0 L Acetaminophen < 10 L 08/06/19 15:50 RDW BUN Creatinine Est GFR ( Amer) Est GFR (MDRD) Non-Af NT-Pro-B Natriuret Pep 1230 H Ur Leukocyte Esterase Salicylates Acetaminophen Discharge - Discharge Clinical Impression: LENORA (acute kidney injury), Paranoia, Auditory hallucinations, CHF (congestive heart failure) Condition: Stable Disposition: PSYCH HOSP/UNIT Referrals: SANDEE HANCOCK FNP [Primary Care Provider] - Follow up as needed
[2019-08-06 18:39] LABS: CREATINE KINASE 100 U/L (30-135)
[2019-08-06 19:03] LABS: CREATINE KINASE MB 2.7 ng/mL (<4.55)
[2019-08-06 19:05] LABS: TROPONIN I 0.036 ng/mL
[2019-08-06] MEDS ORDERED: ASPIRIN 81 MG TABLET, CHEWABLE PO ONE (19:24)
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
--- NOTE | 2019-08-06 19:51 | RADIOLOGY REPORT (SQ) ---
EXAM DESCRIPTION: CHEST SINGLE VIEW COMPLETED DATE/TIME: 08/06/2019 7:37 pm REASON FOR STUDY: decreased BS, cough COMPARISON: 05/22/2019 TECHNIQUE: Single frontal radiographic view of the chest acquired. NUMBER OF VIEWS: One view. LIMITATIONS: None. FINDINGS: LUNGS AND PLEURA: No pneumothorax. No consolidation or pleural effusion. MEDIASTINUM AND HILAR STRUCTURES: Stable. HEART AND VASCULAR STRUCTURES: Stable. BONES: No acute findings. HARDWARE: Cardiac pacer. OTHER: No other significant finding. IMPRESSION: NO ACUTE FINDINGS. TECHNICAL DOCUMENTATION: JOB ID: [id number] [id number] 2010 [employer] All Rights Reserved Reading location - IP/workstation name: [email or web address]
[2019-08-06] MEDS ORDERED: FUROSEMIDE INJ/PF 40 MG/4 ML SDV IV ONE (19:55)
--- NOTE | 2019-08-06 20:17 | EKG REPORT ---
SEVERITY:- ABNORMAL ECG - ATRIAL-VENTRICULAR DUAL-PACED RHYTHM : Confirmed by: Crystal Cabrera MD 06-Aug-2019 20:16:33
[2019-08-06 22:26] LABS: ANION GAP 9 (5-19); BLOOD UREA NITROGEN 29 mg/dL (7-20); CALCIUM 9.1 mg/dL (8.4-10.2); CARBON DIOXIDE 25 mmol/L (22-30); CHLORIDE 110 mmol/L (98-107); GLUCOSE 98 mg/dL (75-110)
[2019-08-06] MEDS ORDERED: MELATONIN 5 MG TABLET PO ONE (23:04)
[2019-08-07] MEDS ORDERED: RISPERIDONE 0.25 MG TABLET PO ONE (11:01)
[2019-08-07] MEDS ORDERED: BUSPIRONE HCL 10 MG TABLET PO ONE (11:01)
[2019-08-07] MEDS ORDERED: DIVALPROEX SODIUM 125 MG CAP.SPRINK PO ONE (11:01)
[2019-08-07] MEDS ORDERED: ARIPIPRAZOLE 5 MG TABLET PO ONE (11:58)
[2019-08-07] MEDS ORDERED: NORMAL SALINE 1000 ML 1,000 ML IV ONE (11:59)
[2019-08-07] MEDS ORDERED: GABAPENTIN 300 MG CAPSULE PO ONE (12:01)
--- NOTE | 2019-08-07 12:04 | ER Document Report ---
Doctor's Note Notes: 08/07/19 12:03 PHYSICAL EXAMINATION: GENERAL: Appears well, healthy, well-nourished, no acute distress. LUNGS: Equal breath sounds bilaterally and clear to auscultation. No wheezes rales or rhonchi. CARDIOVASCULAR: S1-S2, regular rate, regular rhythm. Radial pulses 2+, normal. ABDOMEN: Normoactive bowel sounds. Soft, nontender, no guarding, no rebound tenderness, and no masses palpated. PSYCH: Appears depressed, refusing treatment. I evaluated the patient's auditory studies and I have noticed the patient's c reatinine has progressively gotten worse in May of this year. Patient is saying that she wants to go, but she is IV seat at this time. I spoke with Rashard Ricardo, the PA hospitalist. We will plan to start IV fluids at this time and get the patient rehydrated. Patient will then also be given her Abilify, which she takes normally. She will also get her gabapentin. 08/07/19 20:00 BUN and Creatinine has improved with IV fluids. I spoke with Rashard Ricardo around 18:15. He is recommending fluids overnight and recheck labs in the AM. I have ordered patient's home medications.
[2019-08-07] MEDS: LEVOTHYROXINE SODIUM 0.075 MG TABLET PO SCH (12:23)
[2019-08-07] MEDS: LISINOPRIL 10 MG TABLET PO SCH (12:27)
[2019-08-07] MEDS: DILTIAZEM HCL 240 MG CAPSULE.CR PO SCH (12:27)
[2019-08-07] MEDS ORDERED: NORMAL SALINE 1000 ML 1,000 ML IV PRN (18:20)
[2019-08-07 19:37] LABS: ALBUMIN 3.4 g/dL (3.5-5.0); ALKALINE PHOSPHATASE 59 U/L (38-126); ANION GAP 10 (5-19); ASPARTATE AMINO TRANSFERASE 26 U/L (14-36); BILIRUBIN,DIRECT 0.1 mg/dL (0.0-0.4); BILIRUBIN,TOTAL 0.4 mg/dL (0.2-1.3); BLOOD UREA NITROGEN 26 mg/dL (7-20); CARBON DIOXIDE 25 mmol/L (22-30); CHLORIDE 106 mmol/L (98-107); GLUCOSE 106 mg/dL (75-110); TOTAL PROTEIN 6.1 g/dL (6.3-8.2)
[2019-08-07] MEDS: MELATONIN 5 MG TABLET PO SCH (21:46)
[2019-08-07] MEDS: GABAPENTIN 300 MG CAPSULE PO SCH (21:47)
[2019-08-08 04:17] LABS: ALBUMIN 3.7 g/dL (3.5-5.0); ALKALINE PHOSPHATASE 70 U/L (38-126); ANION GAP 7 (5-19); ASPARTATE AMINO TRANSFERASE 26 U/L (14-36); BILIRUBIN,DIRECT 0.1 mg/dL (0.0-0.4); BILIRUBIN,TOTAL 0.4 mg/dL (0.2-1.3); BLOOD UREA NITROGEN 25 mg/dL (7-20); CALCIUM 9.6 mg/dL (8.4-10.2); CARBON DIOXIDE 28 mmol/L (22-30); CHLORIDE 109 mmol/L (98-107); GLUCOSE 99 mg/dL (75-110); TOTAL PROTEIN 6.4 g/dL (6.3-8.2)
[2019-08-08] MEDS: GABAPENTIN 300 MG CAPSULE PO SCH ×3 (08:38→22:19)
[2019-08-08] MEDS: DILTIAZEM HCL 240 MG CAPSULE.CR PO SCH ×2 (09:36→10:11)
[2019-08-08] MEDS: LEVOTHYROXINE SODIUM 0.075 MG TABLET PO SCH (09:36)
[2019-08-08] MEDS: LISINOPRIL 10 MG TABLET PO SCH (09:36)
--- NOTE | 2019-08-08 15:39 | ER Document Report ---
Doctor's Note Notes: 08/08/19 15:38 Evaluated pt. Pt is pleasant and in no acute distress. Pt's labs have improved from previous. Will continue to hydrate pt and recheck labs in AM. Pt calm and cooperative during evaluation. No complaints at this time. Lungs clear to auscultation bilaterally. RRR.
[2019-08-08] MEDS ORDERED: ACETAMINOPHEN 325 MG TABLET PO ONE (17:45)
[2019-08-08] MEDS ORDERED: GABAPENTIN 300 MG CAPSULE PO ONE (17:45)
[2019-08-08] MEDS: MELATONIN 5 MG TABLET PO SCH (22:19)
[2019-08-09] MEDS ORDERED: ACETAMINOPHEN 325 MG TABLET PO ONE (02:46)
[2019-08-09] MEDS ORDERED: ACETAMINOPHEN 325 MG TABLET ONE (02:55)
[2019-08-09] MEDS ORDERED: HALOPERIDOL LACTATE INJ 5 MG/1 ML VIAL IM ONE (04:16)
[2019-08-09] MEDS ORDERED: LORAZEPAM INJ 2 MG/1 ML VIAL IM ONE (04:17)
[2019-08-09] MEDS: GABAPENTIN 300 MG CAPSULE PO SCH ×3 (08:00→22:23)
[2019-08-09 09:58] LABS: ANION GAP 8 (5-19); BLOOD UREA NITROGEN 19 mg/dL (7-20); CALCIUM 9.6 mg/dL (8.4-10.2); CARBON DIOXIDE 26 mmol/L (22-30); CHLORIDE 115 mmol/L (98-107); GLUCOSE 92 mg/dL (75-110); POTASSIUM 4.1 mmol/L (3.6-5.0)
[2019-08-09] MEDS: DILTIAZEM HCL 240 MG CAPSULE.CR PO SCH (09:59)
[2019-08-09] MEDS: LEVOTHYROXINE SODIUM 0.075 MG TABLET PO SCH (10:00)
[2019-08-09] MEDS: LISINOPRIL 10 MG TABLET PO SCH (10:00)
--- NOTE | 2019-08-09 11:15 | EKG REPORT ---
SEVERITY:- ABNORMAL ECG - ATRIAL-VENTRICULAR DUAL-PACED RHYTHM : Confirmed by: Crystal Cabrera MD 09-Aug-2019 11:14:03
--- NOTE | 2019-08-09 13:30 | ER Document Report ---
Doctor's Note Notes: 08/09/19 13:30 Evaluated patient. Patient without complaints. Lungs clear to auscultation bilaterally. Regular rate and rhythm. Patient continued to remain IVC per psychiatric recommendations.
--- NOTE | 2019-08-09 16:00 | PSYCHOLOGICAL NOTE ---
Psych Note - Psych Note Date seen by psych provider: 08/08/19 Time seen by psych provider: 07:50 Psych Note: Checking conducted with patient: Patient continues to demonstrate significant confusion. Patient's medical status is still being monitored. Patient has required restraints to keep her from attempting to leave the emergency department. At no time was patient violent. Medication recommendations per [facility] contracted psychiatrist Dr. Alba RIOS is as follows: Depakote 250MG, twice per day Kepra is an appropriate alternative if patient is allergic to Depakote Buspar 5MG, twice per day Risperdone 0.25MG, scheduled as needed, 8am and 4pm DSM Diagnosis: Per report, PTSD Unspecified Psychosis Impression/Plan: Patient is recommended to continue under IVC. Patient continues to present with confusion and delusional thought processes. Medication recommendations have been provided. Patient is still being monitored medically. Patient will be reevaluated. Dr. Mcgraw was consulted on the care and management of this patient; attending physician is in agreement with recommendations and disposition.
--- NOTE | 2019-08-09 16:04 | PSYCHOLOGICAL NOTE ---
Psych Note - Psych Note Date seen by psych provider: 08/09/19 Psych Note: Checking conducted with patient: Clinician notes there is no change in patient's presentation. Clinician notes patient's recommendations for medications have not been followed. Clinician does note that there is been some difficulty with the patient being compliant with medications. It is highly recommended that the patient not receive benzodiazepines or high levels of antipsychotics due to patient's advanced age and the significant possibility that this can cause or increased symptoms of aggression, psychosis and paranoia in patients with neurodegenerative processes such as dementia, Alzheimer's and traumatic brain injury etc. Medication recommendations per [facility] contracted psychiatrist Dr. Alba RIOS is as follows: Depakote 250MG, twice per day Kepra is an appropriate alternative if patient is allergic to Depakote Buspar 5MG, twice per day Risperdone 0.25MG, scheduled as needed, 8am and 4pm DSM Diagnosis: Per report, PTSD Unspecified Psychosis Impression/Plan: Patient is recommended to continue under IVC. There has been no change in the patient's presentation. Medication recommendations have been provided unfortunately at this time they have not been followed. Patient will be reevaluated. Dr. Mcgraw was consulted on the care and management of this patient; attending physician is in agreement with recommendations and disposition.
[2019-08-09] MEDS ORDERED: RISPERIDONE 0.25 MG TABLET PO ONE (16:42)
[2019-08-09] MEDS: VALPROATE SODIUM SYRUP 250 MG/5 ML UDCUP PO SCH (17:19)
[2019-08-09] MEDS: BUSPIRONE HCL 10 MG TABLET PO SCH (17:19)
[2019-08-09] MEDS: FUROSEMIDE 40 MG TABLET PO SCH (18:11)
[2019-08-09] MEDS: MELATONIN 5 MG TABLET PO SCH (22:22)
[2019-08-10] MEDS ORDERED: ACETAMINOPHEN 325 MG TABLET PO ONE (03:57)
[2019-08-10] MEDS ORDERED: LORAZEPAM INJ 2 MG/1 ML VIAL IM ONE (04:25)
[2019-08-10] MEDS ORDERED: DIPHENHYDRAMINE HCL 50 MG/ML VIAL IM ONE (04:25)
[2019-08-10] MEDS: GABAPENTIN 300 MG CAPSULE PO SCH ×3 (08:00→21:58)
[2019-08-10] MEDS: LEVOTHYROXINE SODIUM 0.075 MG TABLET PO SCH (10:38)
[2019-08-10] MEDS: BUSPIRONE HCL 10 MG TABLET PO SCH ×2 (10:39→18:06)
[2019-08-10] MEDS: RISPERIDONE 0.25 MG TABLET PO SCH ×3 (10:40→18:06)
[2019-08-10] MEDS: LISINOPRIL 10 MG TABLET PO SCH (10:40)
[2019-08-10] MEDS: DILTIAZEM HCL 240 MG CAPSULE.CR PO SCH (10:41)
[2019-08-10] MEDS: VALPROATE SODIUM SYRUP 250 MG/5 ML UDCUP PO SCH ×2 (10:43→18:06)
[2019-08-10] MEDS: FUROSEMIDE 40 MG TABLET PO SCH ×2 (10:49→18:06)
--- NOTE | 2019-08-10 10:53 | ER Document Report ---
Doctor's Note Notes: 08/10/19 10:51 I reevaluated this 69-year-old female who is currently on IVC papers for being manic with unspecified psychosis and hallucinations. Patient states that she has been feeling well and is eating and drinking without difficulty. She is urinating normally. Patient was noted to have elevated creatinine which has been closely monitored and hydration pushed. Creatinine significantly improved, but we will check again tomorrow morning. Denies any headache, fever, neck pain, URI, sore throat, chest pain, palpi tations, syncope, cough, shortness of breath, wheeze, dyspnea, abdominal pain, nausea/vomiting/diarrhea, urinary retention, dysuria, hematuria, or rash. General: Answers questions appropriately. Heart: RRR Lungs: CTAB Psych: Flat affect A/P: Continue monitoring and med rec's per . Recheck BMP tomorrow morning Normal diet Push fluids
[2019-08-10 16:36] LABS: CHLAM PCR NOT DETECTED (NOT DETECT)
--- NOTE | 2019-08-10 18:49 | PSYCHOLOGICAL NOTE ---
Psych Note - Psych Note Date seen by psych provider: 08/10/19 Time seen by psych provider: 08:30 Psych Note: Checking conducted with patient: Clinician notes there is no change in patient's presentation. Clinician does note that there is been some difficulty with the patient being compliant with medications. It is highly recommended that the patient not receive benzodiazepines or high levels of antipsychotics due to patient's advanced age and the significant possibility that this can cause or increased symptoms of aggression, psychosis and paranoia in patients with neurodegenerative processes such as dementia, Alzheimer's and traumatic brain injury etc. UPDATED Medication recommendations per [facility] contracted psychiatrist Dr. Alba RIOS is as follows: Add Kepra 500MG, twice a day Discontinue Depakote 250MG, twice per day Continue Buspar 5MG, twice per day Continue Risperdone 0.25MG, scheduled as needed, 8am and 4pm In the event of a need for a PRN a ONE TIME DOSE of Haldol 2.5MG may be administered between the hours of midnight and 5am. Only one dose in a 24 hour period. DSM Diagnosis: Per report, PTSD Unspecified Psychosis Impression/Plan: Patient is recommended to continue under IVC. There has been no change in the patient's presentation. Medication recommendations have been provided. Patient is not medication compliant. Medication recommendations have been updated; to include d/c Depakote and adding Kepra. Placement efforts are ongoing. Patient will be reevaluated. Dr. Mcgraw was consulted on the care and management of this patient; attending physician is in agreement with recommendations and disposition.
[2019-08-10] MEDS: LEVETIRACETAM 500 MG TABLET PO SCH (19:37)
[2019-08-10] MEDS: MELATONIN 5 MG TABLET PO SCH (21:58)
[2019-08-11] MEDS: GABAPENTIN 300 MG CAPSULE PO SCH ×3 (07:40→21:04)
[2019-08-11 08:43] LABS: ANION GAP 10 (5-19); BLOOD UREA NITROGEN 22 mg/dL (7-20); CALCIUM 9.6 mg/dL (8.4-10.2); CARBON DIOXIDE 29 mmol/L (22-30); CHLORIDE 105 mmol/L (98-107); GLUCOSE 98 mg/dL (75-110); POTASSIUM 4.1 mmol/L (3.6-5.0)
[2019-08-11] MEDS: LEVETIRACETAM 500 MG TABLET PO SCH ×2 (09:14→18:12)
[2019-08-11] MEDS: BUSPIRONE HCL 10 MG TABLET PO SCH ×2 (09:14→18:16)
[2019-08-11] MEDS: DILTIAZEM HCL 240 MG CAPSULE.CR PO SCH (09:15)
[2019-08-11] MEDS: RISPERIDONE 0.25 MG TABLET PO SCH ×2 (09:15→18:12)
[2019-08-11] MEDS: LISINOPRIL 10 MG TABLET PO SCH (09:15)
[2019-08-11] MEDS: FUROSEMIDE 40 MG TABLET PO SCH ×2 (09:15→18:11)
[2019-08-11] MEDS: LEVOTHYROXINE SODIUM 0.075 MG TABLET PO SCH (09:15)
--- NOTE | 2019-08-11 09:52 | ER Document Report ---
Doctor's Note Notes: 08/11/19 09:50 I reevaluated this 69-year-old female who is currently on IVC papers for being manic with unspecified psychosis and hallucinations. Patient states that she has been feeling well and is eating and drinking without difficulty. She is urinating normally. Pt had her CMP performed which showed mild dehydration but otherwise baseline creatinine. Denies any headache, fever, neck pain, URI, sore throat, chest pain, palpitations, syncope, cough, shortness of breath, wheeze, dyspnea, abdominal pain, nausea/vomiting/diarrhea, urinary retention, dysuria, hematuria, or rash. General: Answers questions appropriately. Moves comfortably Heart: RRR Lungs: CTAB Psych: normal affect A/P: Continue monitoring and med rec's per MH. Pt will receive a total of 2L via IV of saline, 1L now and 1L at lunch time. Normal diet Push fluids [facility]
[2019-08-11] MEDS: NORMAL SALINE 1000 ML 1,000 ML IV PRN ×2 (10:26→14:23)
--- NOTE | 2019-08-11 14:40 | PSYCHOLOGICAL NOTE ---
Psych Note - Psych Note Date seen by psych provider: 08/11/19 Time seen by psych provider: 08:55 Psych Note: Checking conducted with patient: Clinician notes there is no change in patient's presentation. Clinician engaged patient in conversation, and patient oriented clinician to what clinician understands to be the patient's dog. Patient was acting as if the dog was in the room. It is clinician's understanding that patient was introducing dog to clinician and explaining that the dog is friendly. Clinician observed patient engaging in behavior that suggestive of petting a dog. Patient is medication compliant following the switch from Depakote to Kepra. It is highly recommended that the patient not receive benzodiazepines or high levels of antipsychotics due to patient's advanced age and the significant possibility that this can cause or increased symptoms of aggression, psychosis and paranoia in patients with neurodegenerative processes such as dementia, Alzheimer's and traumatic brain injury etc. Medication recommendations per [facility] contracted psychiatrist Dr. Alba RIOS is as follows: Continue Kepra 500MG, twice a day Continue Buspar 5MG, twice per day Continue Risperdone 0.25MG, scheduled as needed, 8am and 4pm In the event of a need for a PRN a ONE TIME DOSE of Haldol 2.5MG may be administered between the hours of midnight and 5am. Only one dose in a 24 hour period. DSM Diagnosis: Per report, PTSD Unspecified Psychosis Impression/Plan: Patient is recommended to continue under IVC. There has been no change in the patient's presentation. Medication recommendations have been provided. Patient is medication compliant, at this time. Placement efforts are ongoing. parts and service manager has submitted to the Department of [place], and [place] for placement. [facility] of [place]) state there are no beds available. Patient will be reevaluated. Dr. Mcgraw was consulted on the care and management of this patient; attending physician is in agreement with recommendations and disposition.
[2019-08-11] MEDS: MELATONIN 5 MG TABLET PO SCH (21:04)
[2019-08-12] MEDS: GABAPENTIN 300 MG CAPSULE PO SCH ×3 (08:17→22:22)
[2019-08-12] MEDS: BUSPIRONE HCL 10 MG TABLET PO SCH ×2 (09:43→18:43)
[2019-08-12] MEDS: RISPERIDONE 0.25 MG TABLET PO SCH ×2 (09:43→18:43)
[2019-08-12] MEDS: LEVETIRACETAM 500 MG TABLET PO SCH ×2 (09:43→18:43)
[2019-08-12] MEDS: FUROSEMIDE 40 MG TABLET PO SCH ×2 (09:44→18:43)
[2019-08-12] MEDS: DILTIAZEM HCL 240 MG CAPSULE.CR PO SCH (09:44)
[2019-08-12] MEDS: LISINOPRIL 10 MG TABLET PO SCH (09:44)
[2019-08-12] MEDS: LEVOTHYROXINE SODIUM 0.075 MG TABLET PO SCH (09:44)
--- NOTE | 2019-08-12 17:28 | ER Document Report ---
Doctor's Note Notes: 08/12/19 17:20 Patient calm and cooperative. Patient currently awaiting placement. Patient currently continues to remain IVC per psychiatric recommendations.
[2019-08-12] MEDS: MELATONIN 5 MG TABLET PO SCH (22:22)
[2019-08-13] MEDS: HALOPERIDOL LACTATE INJ 5 MG/1 ML VIAL IM PRN (06:04)
[2019-08-13] MEDS: GABAPENTIN 300 MG CAPSULE PO SCH ×2 (07:41→11:07)
[2019-08-13] MEDS: BUSPIRONE HCL 10 MG TABLET PO SCH ×2 (09:35→17:59)
[2019-08-13] MEDS: LISINOPRIL 10 MG TABLET PO SCH (09:35)
[2019-08-13] MEDS: FUROSEMIDE 40 MG TABLET PO SCH ×2 (09:36→18:00)
[2019-08-13] MEDS: LEVETIRACETAM 500 MG TABLET PO SCH ×2 (09:36→18:00)
[2019-08-13] MEDS: LEVOTHYROXINE SODIUM 0.075 MG TABLET PO SCH (09:36)
[2019-08-13] MEDS: DILTIAZEM HCL 240 MG CAPSULE.CR PO SCH (09:36)
[2019-08-13] MEDS: RISPERIDONE 0.25 MG TABLET PO SCH ×2 (09:37→17:59)
--- NOTE | 2019-08-13 17:33 | ER Document Report ---
Doctor's Note Notes: 08/13/19 17:32 Assessed patient. Vitals stable. Patient will continue to remain IVC ending placement per psychiatric recommendations. BMP ordered every 3 days starting tomorrow due to kidney function. Patient also to be weighed daily due to being on Lasix.
--- NOTE | 2019-08-13 20:44 | PSYCHOLOGICAL NOTE ---
Psych Note - Psych Note Date seen by psych provider: 08/13/19 Time seen by psych provider: 18:35 Psych Note: Checking conducted with patient: Clinician notes there is no change in patient's presentation. Patient states she needs to be discharged because she is with "God's baby." Patient states she is unable to take the medications prescribed because "they may hurt the fetus." Patient stated, "I know I'm 69 years old but the hospital can take the baby out until its ready to leave the hospital." Patient verbalized a plan to move in with her daughter and establish residency and [place] services here. Patient is becoming increasingly agitated with being confined to her room. Patient stated being isolated to her hospital room is not good for the fetus. It is highly recommended that the patient not receive benzodiazepines or high levels of antipsychotics due to patient's advanced age and the significant possibility that this can cause or increased symptoms of aggression, psychosis and paranoia in patients with neurodegenerative processes such as dementia, Alzheimer's and traumatic brain injury etc. UPDATED Medication recommendations per [facility] contracted psychiatrist Dr. Alba RIOS is as follows: Discontinue Melatonin Decrease Gabapentin to 300MG, twice a day Continue Kepra 500MG, twice a day Continue Buspar 5MG, twice per day Please note the scheduled times of the medications below Continue Risperdal 0.25MG, scheduled 8am and 4pm In the event of a need for a PRN a ONE TIME DOSE of Haldol 2.5MG may be administered between the hours of midnight and 5am. Only one dose in a 24 hour period. DSM Diagnosis: Per report, PTSD Unspecified Psychosis Impression/Plan: Patient is recommended to continue under IVC. There has been no change in the patient's presentation. Medication recommendations have been provided. Patient is medication compliant, at this time. Placement efforts are ongoing. assurance services manager health care has submitted to the Department of [place] and [place] for placement. Department of [facility] ([place]) state there are no beds available. Patient will be reevaluated. Dr. Mcgraw was consulted on the care and management of this patient; attending physician is in agreement with recommendations and disposition.
[2019-08-14] MEDS: GABAPENTIN 300 MG CAPSULE PO SCH ×3 (08:03→17:01)
[2019-08-14] MEDS: RISPERIDONE 0.25 MG TABLET PO SCH ×2 (09:22→15:39)
[2019-08-14] MEDS: LEVETIRACETAM 500 MG TABLET PO SCH ×2 (09:22→17:01)
[2019-08-14] MEDS: LISINOPRIL 10 MG TABLET PO SCH (09:22)
[2019-08-14] MEDS: BUSPIRONE HCL 10 MG TABLET PO SCH ×2 (09:23→17:01)
[2019-08-14] MEDS: FUROSEMIDE 40 MG TABLET PO SCH ×2 (09:23→17:01)
[2019-08-14] MEDS: LEVOTHYROXINE SODIUM 0.075 MG TABLET PO SCH (09:24)
[2019-08-14] MEDS: DILTIAZEM HCL 240 MG CAPSULE.CR PO SCH (09:24)
--- NOTE | 2019-08-14 10:41 | ER Document Report ---
Doctor's Note Notes: 08/14/19 10:30 S: Patient states that she is doing well today. She denies any SI, HI, or hallucinations. Today she states that she is . She states that she found this out yesterday. She has been having delusional thought process since she has been here in the emergency department. She had been stating that she was communicating with her boyfriend Fox through an ear wag in her ear. She is currently under IVC and awaiting placement. She is to get BMP every 3 days to monitor her kidney function. She is scheduled to have one this morning. O: C: In no acute distress, alert and oriented x4. Well-developed and well- nourished Cardiac: Regular rate and rhythm, no murmurs rubs or gallops Pulm: No wheezes rhonchi rales. Chest is clear to auscultation. Abdomen: +obesity nontender to palpation. No rebound no guarding. No masses., Skin: No rashes, good turgor, dry Psych: Flat affect. Patient has a delusion today that she is . She denies SI, HI or hallucinations Neuro: Cranial nerves II through XII are intact, no pronator drift. No leg dri ft. Oriented to person place and time. A/P: Patient is currently on IVC orders. Review of prior charts shows that placement is being sought. Patient currently on gabapentin 300 twice daily Keppra 500 twice daily BuSpar 5 twice daily and Risperdal 0.25 every morning and every afternoon. We will continue to await mental health team's further evaluation and disposition planning.
[2019-08-14 13:20] LABS: ANION GAP 10 (5-19); BLOOD UREA NITROGEN 32 mg/dL (7-20); CALCIUM 10.1 mg/dL (8.4-10.2); CARBON DIOXIDE 28 mmol/L (22-30); CHLORIDE 107 mmol/L (98-107); GLUCOSE 105 mg/dL (75-110); POTASSIUM 4.4 mmol/L (3.6-5.0)
[2019-08-15] MEDS: HALOPERIDOL LACTATE INJ 5 MG/1 ML VIAL IM PRN (00:37)
[2019-08-15] MEDS ORDERED: DIPHENHYDRAMINE HCL 50 MG/ML VIAL IM ONE ×2 (03:59→04:40)
--- NOTE | 2019-08-15 07:47 | PSYCHOLOGICAL NOTE ---
Psych Note - Psych Note Date seen by psych provider: 08/15/19 Time seen by psych provider: 07:10 Psych Note: Checking conducted with patient: Clinician notes there is no change in patient's presentation. Patient is becoming increasingly agitated with being confined to her room. Per nurse's note, is was necessary for patient to be restrained due to frequent attempts at elopement. Patient states she was not trying to elope. Patient states she "just wants to walk." Patient stated she needed to walk due to a medical concern with her legs. Patient spoke of her deteriorating mental health being correlated with being confined to her room. Patient states "you'd be upset to." Patient requested to speak with daughter. Patient stated she needed to be discharged to begin the process of moving. Patient states she will travel to daughters via airplane. Patient spoke of having someone selling her home and taking out an $80,000 mortgage, and needing to leave the ED to resolve the situation. Patient was informed that her daughter and others are in the process of investigating the issue. Patient was informed that there was a great deal of collaboration going on behind the scenes, and that our priority is her safety. Patient again refrenced her deteriorating mental health due to the confinement of the ED setting. Clinician spoke to patient about the ED being busy with "hospital business" and the possible dangers of her being allowed to walk around. Clinician stated she was speak to the Doc about possible opportunities to increase her mobility, however the elopement behavior is a concern. Patient was calm with clinician and somewhat linear in thought. Patient expressed a desire to sell some of her possessions. Patient was provided with a crayon and paper to write down items on her to do list. Spoke with attending physician who stated she will put in ambulatory consult to assist with patient's desire to be physically active. The following information was collected by case fitter on 08/14/2019: Patient daughter Dayday Strong called from [place]. She provided collateral from [phone]. She stated [facility] called her today saying they needed to move patient's appointment from 08/27/19 to 08/26/19, they do not have a diagnosis as of yet for patient as they were trying to conduct a few more follow up appointments. The parts salesperson at [facility] is Nurse Reis [phone]. Daughter also noted she has been in contact with DSS regarding Guardianship and what that entails. She mentioned DSS worker Gloria Brower-Sudhakar will be back from vacation Saturday but if this Change Management Coordinator speaks to Isabel Bryan to see if she'd call daughter (please note this case fitter did not speak to Isabel Oharaantonio again today). Daughter confirmed Tarsha Crawley has been helping her (daughter) take care of the home and dealing with bills which many are past due. Siobhan with [employer] [facility] called to inquire about patient status and plan of care. She was made aware IVC was redone yesterday, patient has been denied by 3 hospitals ([facility], [facility], [facility]), the following information about [place] hospitals ([facility] has been full, [facility], faxed referral to both [place] and [facility] today), there has been coordination with DSS and daughter from [place] has called in to obtain and provide information. It is highly recommended that the patient not receive benzodiazepines or high levels of antipsychotics due to patient's advanced age and the significant possibility that this can cause or increased symptoms of aggression, psychosis and paranoia in patients with neurodegenerative processes such as dementia, Alzheimer's and traumatic brain injury etc. Medication recommendations per [facility] contracted psychiatrist Dr. Alba RIOS is as follows: Discontinue Melatonin Continue Gabapentin to 300MG, twice a day Continue Kepra 500MG, twice a day Continue Buspar 5MG, twice per day Please note the scheduled times of the medications below Continue Risperdal 0.25MG, scheduled 8am and 4pm In the event of a need for a PRN a ONE TIME DOSE of Haldol 2.5MG may be administered between the hours of midnight and 5am. Only one dose in a 24 hour period. DSM Diagnosis: Per report, PTSD Unspecified Psychosis Impression/Plan: Patient is recommended to continue under IVC. There has been no change in the patient's presentation. Medication recommendations have been provided. Patient is medication compliant, at this time. Placement efforts are ongoing. electrical construction project manager has submitted to the Department of [facility], and [place] for placement. [facility] of [place] ([facility]) state there are no beds available. Patient will be reevaluated. Dr. Mcgraw was consulted on the care and management of this patient; attending physician is in agreement with recommendations and disposition.
[2019-08-15] MEDS: RISPERIDONE 0.25 MG TABLET PO SCH ×2 (08:21→15:58)
[2019-08-15] MEDS: LEVETIRACETAM 500 MG TABLET PO SCH ×2 (09:04→18:49)
[2019-08-15] MEDS: FUROSEMIDE 40 MG TABLET PO SCH ×2 (09:04→18:49)
[2019-08-15] MEDS: LISINOPRIL 10 MG TABLET PO SCH (09:04)
[2019-08-15] MEDS: GABAPENTIN 300 MG CAPSULE PO SCH ×2 (09:04→18:49)
[2019-08-15] MEDS: BUSPIRONE HCL 10 MG TABLET PO SCH ×2 (09:04→18:49)
[2019-08-15] MEDS: DILTIAZEM HCL 240 MG CAPSULE.CR PO SCH (09:05)
[2019-08-15] MEDS: LEVOTHYROXINE SODIUM 0.075 MG TABLET PO SCH (09:05)
--- NOTE | 2019-08-15 11:17 | ER Document Report ---
Doctor's Note Notes: 08/15/19 11:13 S: Rounded on patient. She remains on IVC papers. Continuing to try to find placement for patient. She is better today. She states that she feels well. She does not mention any delusions about being today. Per our staff, she did attempt to leave last night. The staff had difficulty redirecting her back to her room and she was dosed with Benadryl which helped with her agitation and she was able to rest for the rest of the evening. She states that she has had breakfast today and feels well. She is making a list of things to sell out of her home when I first entered the room. O: C: Well-developed, well-nourished, in no acute distress Cardiac: Regular rate and rhythm, no murmurs, gallops, or rubs Lung: Clear to auscultation, no wheezes, rales, rhonchi Abdomen: Nontender to palpation. Soft, obese Skin: Noted yellowing ecchymosis area to the left forearm. Otherwise skin is intact, warm and dry Psych: Slightly flat affect. She is slightly confused but seems to be improved from yesterday. No SI, HI, hallucinations A/P: Patient remains on IVC papers. A bed placement has not been found for patient just yet but the crisis team will continue to look for placement for her. In the meantime we will continue to monitor patient closely.
--- NOTE | 2019-08-15 19:45 | PSYCHOLOGICAL NOTE ---
Psych Note - Psych Note Date seen by psych provider: 08/15/19 Time seen by psych provider: 19:22 Psych Note: Patient has been accepted for admittance to the [facility] [place]. Clinician has left voicemail to arrange transportation for tomorrow, 08/16/2019. Zee with the [facility] stated they will hold the bed. Transport documents have been faxed to [facility]. Per Maximiliano at [facility], transpo will happen tomorrow.
[2019-08-16] MEDS: RISPERIDONE 0.25 MG TABLET PO SCH (08:14)
[2019-08-16 08:16] VITALS: BP 136/62
--- NOTE | 2019-08-16 08:26 | PSYCHOLOGICAL NOTE ---
Psych Note - Psych Note Date seen by psych provider: 08/16/19 Time seen by psych provider: 07:50 Psych Note: Per nursing staff, patient had an uneventful night. [facility] arrived to ED at approximately 7:50 to transport patient to [facility]. Patient was calm and cooperative. Patient expressed minor concern with being placed in handcuff and shackled at the feet, however remained calm and cooperative throughout the process. Patient shook clinician's hand as she was leaving ED.
--- NOTE | 2019-08-16 08:43 | ER Document Report ---
Doctor's Note Notes: 08/16/19 08:22 patient is doing well this morning. She has a bed at [facility]. Rounded on her and she is very agreeable to the plan. She is better this morning. She is safe for transfer.
== END 2019-08-16 08:34 ==
LOC: ER 15:00
DX: N17.9 Acute kidney failure, unspecified (principal); F22 Delusional disorders; I11.0 Hypertensive heart disease with heart failure; I50.9 Heart failure, unspecified; F29 Unspecified psychosis not due to a substance or known physiological condition; E78.00 Pure hypercholesterolemia, unspecified; F43.10 Post-traumatic stress disorder, unspecified; J44.9 Chronic obstructive pulmonary disease, unspecified; E03.9 Hypothyroidism, unspecified; Z95.0 Presence of cardiac pacemaker; Z88.0 Allergy status to penicillin; Z90.49 Acquired absence of other specified parts of digestive tract
CPT/HCPCS: 93005 ×2; 36415; 87086; 82553; 80307 ×4; 82550; 85025; 80048; 80053; 81001; 84484; 87491; 87591; 83880; 71045; 93010 ×2; A9270 ×51; J1200; J1940; J1630; J2060 ×2; J7030 ×3; 96361; 96372; 96374; 99285; J3490